=== PATIENT | male | born 1935 | race Caucasian/White ===

== ENCOUNTER 2019-03-15 16:09 | Inpatient (IN) | payer OTHER, MEDICARE ==
--- NOTE | 2019-03-15 16:20 | PDOC ---
History of Present Illness - General Chief Complaint: Respiratory Stated Complaint: COUGH Time Seen by Provider: 03/15/19 16:11 History Source: Patient Exam Limitations: No Limitations - History of Present Illness Initial Comments: 03/15/19 16:19 PCP: Cl Serrano HPI: 83yo M PMH HTN, BPH, pacemaker placement 01/30/19, presenting with cough and SOB for 2 weeks. Patient reports developing a cough 2 weeks ago, productive of green/ambrosio sputum. Endorses chills about a week ago. Reports that his cough / SOB has not changed for the entire duration. Reports difficulty talking 2/2 shortness of breath and "difficulty thinking." Denies nausea, vomiting, diarrhea , headache, chest pain. Denies any history of COPD or other pulmonary Hx, no CHF. Never had anything like this before, does not take home oxygen. No recent hospitalizations or immobilizations. was sick with similar respiratory symptoms before he fell ill and took a course of amoxicillin per [facility]. All: NKDA Meds: Per chart PMH: As above PSH: Pacemaker placement SHx: Never smoker Past History - Travel Traveled outside of the country in the last 30 days: No Close contact w/someone who was outside of country & ill: No - Past Medical History Allergies/Adverse Reactions: Allergies Allergy/AdvReac Type Severity Reaction Status Date / Time No Known Allergies Allergy Verified 03/15/19 16:10 Home Medications: Ambulatory Orders "Generic Antacid" 1 tab PO DAILY 03/15/19 Aspirin [Aspirin EC] 81 mg PO DAILY 03/15/19 Cholecalciferol (Vitamin D3) [Vitamin D3] 2,000 unit PO DAILY 03/15/19 Finasteride 5 mg PO DAILY 03/15/19 Hydrochlorothiazide [Hctz -] 12.5 mg PO DAILY 03/15/19 Losartan/Hydrochlorothiazide [Losartan-Hctz 100-25 mg Tab] 1 each PO DAILY 03/15 Metoprolol Succinate [Toprol Xl] 25 mg PO DAILY 03/15/19 Multivit-Min/FA/Lycopen/Lutein [Centrum Silver Tablet] 1 each PO DAILY 03/15/19 [place]-3 Fatty Acids/Fish Oil [Fish Oil 1,000 mg Capsule] 1 each PO DAILY Tamsulosin HCl [Flomax] 0.8 mg PO DAILY 01/19/20 Cardiac Disorders: Yes (PACEMAKER) COPD: No Disorders: Yes (PROSTATE) - Surgical History Cardiac Surgery: Yes (PACEMAKER) - Psycho Social/Smoking Cessation Hx Smoking History: Never smoked Have you smoked in the past 12 months: No Information on smoking cessation initiated: No Review of Systems - Review of Systems Able to Perform ROS?: Yes Is the patient limited Welsh proficient: Yes Constitutional: Yes: Chills (a week ago, resolved). No: Fever HEENTM: No: Nose Congestion, Throat Pain Respiratory: Yes: Cough, Shortness of Breath, SOB at Rest, Productive cough. No : Wheezing, Hemoptysis Cardiac (ROS): No: Chest Pain, Edema, Irregular Heart Rate, Syncope, Chest Tightness ABD/GI: No: Constipated, Diarrhea, Nausea, Vomiting : No: Burning, Dysuria, Frequency Musculoskeletal: No: Muscle Pain, Muscle Weakness Integumentary: No: Erythema, Rash, Sweating Neurological: No: Headache, Numbness, Tingling, Weakness Hematologic/Lymphatic: No: Anemia, Blood Clots, Easy Bleeding All Other Systems: Reviewed and Negative *Physical Exam - Vital Signs Last Vital Signs Temp Pulse Resp BP Pulse Ox 98.2 F 78 24 H 103/74 03/15/19 16:10 03/15/19 16:10 03/15/19 16:10 03/15/19 16:10 - Physical Exam 03/15/19 17:04 Vitals reviewed, AF, Tachypnic with O2 Sat in upper 80s on 5-8L NC GEN: Moderate distress, junky cough, comfortable. HEENT: NCAT, EOMI. No facial asymmetry. Moist mucous membranes. Normal voice. Trachea midline. CV: RRR, S1/S2, no murmurs / rubs / gallops appreciated. LUNG: Increased work of breathing with increased rate. +Wheezes anteriorly, rhonchi in RML. +Junky cough. Speaking short sentences. GI: Soft, NTND. EXTREMITIES: 2+ distal pulses. No LE edema. No obvious deformities of all extremities. SKIN: Warm, dry, no rashes appreciated, non-jaundiced. PSYCH: Normal mood and affect. Cooperative and appropriate. NEURO: CN grossly intact. Moving all extremities well. A&Ox3 ED Treatment Course - LABORATORY CBC & Chemistry Diagram: 03/15/19 16:51 03/15/19 16:51 Medical Decision Making - Medical Decision Making 03/15/19 16:56 83yo M PMH HTN, pacemaker placement 01/30/19, presenting with productive cough and SOB for 2 weeks. Concerning for poor O2 Sat, difficulty talking 2/2 tachypnea, rhonchi on lung exam. DDX: Most likely pneumonia vs bronchitis vs influenza. - CBC, CMP, Troponin - CXR, EKG - Duoneb - Outside window for antiviral tx 03/15/19 17:21 - Cr 2.9, unknown baseline, no reported kidney disease, 1L IVF ordered - Troponin pending Dispo: Admit Med/Surg [place] 03/15/19 17:28 - CXR with clear right mid-lung field pneumonia, suspect lower lobe involvement - Lactic acid and Blood Cultures ordered - EKG with Rate 88, Sinus rhythm with 1st degree AV block and premature atrial complexes, RBBB, Left anterior fascicular block, no ischmic changes Tx: Rocephin and Zithromax 03/15/19 17:53 - Troponin 0.06 - Influenza swab ordered 03/15/19 18:15 - Additional Duonebs 03/15/19 18:55 - Endorsed to Hospitalist EXPERIMENTAL MACHINIST Marilee and overnight Attending Dr. Jesus Discharge - Discharge Information Problems reviewed: Yes Clinical Impression/Diagnosis: Elevated serum creatinine Pneumonia Qualifiers: Pneumonia type: due to unspecified organism Laterality: right Lung location: unspecified part of lung Qualified Code(s): J18.9 - Pneumonia, unspecified organism Condition: Stable - Admission Yes - Follow up/Referral Referrals: Cl Serrano MD [Primary Care Provider] - - Patient Discharge Instructions - Post Discharge Activity
[2019-03-15] MEDS ORDERED: ALBUTEROL SO4 2.5/IPRATROPIUM 0.5 INH SOL 3 ML VIAL.NEB. NEB ONE ×4 (16:36→20:07)
--- NOTE | 2019-03-15 16:40 | PDOC ---
Attending Attestation - Resident Resident Name: Joey Nur - ED Attending Attestation I have performed the following: I have examined & evaluated the patient, The case was reviewed & discussed with the resident, I agree w/resident's findings & plan - HPI HPI: 03/15/19 16:37 83 y/o male with SOB and cough for several days. has been sick with cough. Denies fever or chills. No chest pain. Patient denies fall or trau,a Recent pacemaker placed in January. No swelling. No oxygen at home. - Physicial Exam PE: 03/15/19 16:38 VS O2 85% HEENT unremarkable Heart RRR w/o murmur Lungs diminished b/l, with coarse breath sounds on right Abdomen: soft nontender +BS EXTL no C/C/E Neuro Grossly intact no focal deficits noted - Medical Decision Making 03/15/19 16:39 Will obtain labs and CXR r/o pneumonia and cardiac event 03/15/19 17:29 CXR RLL pneumonia EKG rate 88 bifisicular block, no STEMI 03/15/19 18:03 Trop 0.06, AFF, IVF Will pace on Rocephin and Zithromax [facility] agrees to admission Patient agrees with plan Case discussed and reviewed with Dr. Nur resident, in agreement 03/15/19 18:04 Dx: pneumonia, ARF
[2019-03-15 17:07] LABS: HEMATOCRIT 42.4 % (35.4-49); HEMOGLOBIN 14.2 GM/dl (11.7-16.9); MCH 29.9 pg (25.7-33.7); MCHC 33.4 g/dl (32.0-35.9); MEAN CELL VOLUME 89.4 fl (80-96); MEAN PLT VOLUME 8.8 fl (7.5-11.1); PLATELET COUNT 315 K/MM3 (134-434); RBC 4.74 M/mm3 (4.00-5.60); RDW 15.2 % (11.9-15.9); WHITE BLOOD COUNT 24.6 K/mm3 (4.0-10.8)
[2019-03-15 17:15] LABS: ALBUMIN 2.3 g/dl (3.4-5.0); BILIRUBIN,TOTAL 1.2 mg/dl (0.2-1); CALCIUM 8.7 mg/dl (8.5-10); CREATININE 2.9 mg/dl (0.55-1.3); POTASSIUM 3.8 mmol/L (3.5-5.1); TOT PROT 5.4 g/dl (6.4-8.2)
[2019-03-15] MEDS ORDERED: CEFTRIAXONE 1 GM in DEXTROSE 5%-WATER - 100 ML IVPB ONE (17:31)
[2019-03-15] MEDS ORDERED: SODIUM CHLORIDE 0.9% 500 ML INFUS.BAG IV ONE ×2 (17:36→19:35)
[2019-03-15] MEDS ORDERED: AZITHROMYCIN 500 MG VIAL IVPB ONE (17:40)
[2019-03-15] MEDS ORDERED: cefTRIAXone SODIUM 1 GM VIAL ONE (17:40)
[2019-03-15] MEDS: AZITHROMYCIN IVPB 500 MG in DEXTROSE 5%-WATER - 250 ML IVPB ONE ×2 (17:50→18:30)
[2019-03-15 17:59] LABS: PLATELET ESTIMATE ADEQUATE
[2019-03-15] MEDS ORDERED: ONDANSETRON 4 MG/2 ML VIAL IVPUSH ONE (19:35)
[2019-03-15] MEDS ORDERED: ONDANSETRON 4 MG/2 ML VIAL ONE (19:38)
--- NOTE | 2019-03-15 20:31 | HP ---
CHIEF COMPLAINT: Cough, Weakness PCP: Dr. Serrano HISTORY OF PRESENT ILLNESS: This is a 83 y/o man with a PMHx of HTN, BPH, s/p PPM (01/2019). Who presents to the ED with worsening cough, SOB and weakness x several days. patient reports having a productive cough with grayish phelgm. He reports recent sick exposure- his has Bronchitis. Patient reports having recent pacemaker placed last month. Patient denies chills, WRIGHT, dizziness, CP, palpitations, AP, N /V/D, constipation, dysuria. ER course was notable for: (1) chest Xray image- patchy infiltrates RLL (2) WBC 24 with L- shift (3) Cr 2.9 (4) Troponin 0.06 Recent Travel: None PAST MEDICAL HISTORY: HTN BPH PAST SURGICAL HISTORY: AP s/p PPM (01/2019) Social History: Smoking: Former Alcohol: Denies Drugs: Denies Lives with spouse, retired Allergies No Known Allergies Allergy (Verified 03/15/19 16:10) HOME MEDICATIONS: Home Medications Medication Instructions Recorded "Generic Antacid" 1 tab PO DAILY 03/15/19 Aspirin [Aspirin EC] 81 mg PO DAILY 03/15/19 Cholecalciferol (Vitamin D3) 2,000 unit PO DAILY 03/15/19 [Vitamin D3] Finasteride 5 mg PO DAILY 03/15/19 Hydrochlorothiazide [Hctz -] 12.5 mg PO DAILY 03/15/19 Losartan/Hydrochlorothiazide 1 each PO DAILY 03/15/19 [Losartan-Hctz 100-25 mg Tab] Metoprolol Succinate [Toprol Xl] 25 mg PO DAILY 03/15/19 Multivit-Min/FA/Lycopen/Lutein 1 each PO DAILY 03/15/19 [Centrum Silver Tablet] [place]-3 Fatty Acids/Fish Oil [Fish 1 each PO DAILY 03/15/19 Oil 1,000 mg Capsule] Tamsulosin HCl [Flomax] 0.8 mg PO DAILY 03/15/19 REVIEW OF SYSTEMS CONSTITUTIONAL: fever, generalized weakness Absent: chills, diaphoresis, malaise, loss of appetite, weight change HEENT: Absent: rhinorrhea, nasal congestion, throat pain, throat swelling, difficulty swallowing, mouth swelling, ear pain, eye pain, visual changes CARDIOVASCULAR: Absent: chest pain, syncope, palpitations, irregular heart rate, lightheadedness , peripheral edema RESPIRATORY: cough, shortness of breath Absent: dyspnea with exertion, orthopnea, wheezing, stridor, hemoptysis GASTROINTESTINAL: Absent: abdominal pain, abdominal distension, nausea, vomiting, diarrhea, constipation, melena, hematochezia GENITOURINARY: Absent: dysuria, frequency, urgency, hesitancy, hematuria, flank pain, genital pain MUSCULOSKELETAL: Absent: myalgia, arthralgia, joint swelling, back pain, neck pain SKIN: Absent: rash, itching, pallor HEMATOLOGIC/IMMUNOLOGIC: Absent: easy bleeding, easy bruising, lymphadenopathy, frequent infections ENDOCRINE: Absent: unexplained weight gain, unexplained weight loss, heat intolerance, cold intolerance NEUROLOGIC: Absent: headache, focal weakness or paresthesias, dizziness, unsteady gait, seizure, mental status changes, bladder or bowel incontinence PSYCHIATRIC: Absent: anxiety, depression, suicidal or homicidal ideation, hallucinations. PHYSICAL EXAMINATION Vital Signs - 24 hr 03/15/19 03/15/19 03/15/19 16:10 16:15 17:53 Temperature 98.2 F 97.9 F Pulse Rate 78 98 H Pulse Rate [ 92 H Left Apical] Respiratory 24 H 24 H Rate Blood Pressure 103/74 Blood Pressure 127/89 [Left Arm] O2 Sat by Pulse 88 L 92 L 94 L Oximetry (%) 03/15/19 03/15/19 19:06 19:40 Temperature 98 F 98 F Pulse Rate Pulse Rate [ 91 H 77 Left Apical] Respiratory 21 H 22 H Rate Blood Pressure Blood Pressure 101/88 119/78 [Left Arm] O2 Sat by Pulse 92 L 93 L Oximetry (%) GENERAL: Awake, alert, and fully oriented, in no acute distress. HEAD: Normal with no signs of trauma. EYES: Pupils equal, round and reactive to light, extraocular movements intact, sclera anicteric, conjunctiva clear. No lid lag. EARS, NOSE, THROAT: Ears normal, nares patent, oropharynx clear without exudates. Moist mucous membranes. NECK: Normal range of motion, supple without lymphadenopathy, JVD, or masses. LUNGS: Breath sounds diminished in right base. Scattered rhonchi and wheeze. No accessory muscle use. HEART: Regular rate and rhythm, normal S1 and S2 without murmur, rub or gallop. ABDOMEN: Obese, soft, nontender, not distended, normoactive bowel sounds, no guarding, no rebound, no masses. No hepatomegaly or splenomegaly. MUSCULOSKELETAL: Normal range of motion at all joints. No bony deformities or tenderness. No CVA tenderness. UPPER EXTREMITIES: 2+ pulses, warm, well-perfused. No cyanosis. No clubbing. No peripheral edema. LOWER EXTREMITIES: 2+ pulses, warm, well-perfused. No calf tenderness. No peripheral edema. NEUROLOGICAL: Cranial nerves II-XII intact. Normal speech. Gait not observed. PSYCHIATRIC: Cooperative. Good eye contact. Appropriate mood and affect. SKIN: Warm, dry, normal turgor, no rashes or lesions noted, normal capillary refill. Laboratory Results - last 24 hr 03/15/19 03/15/19 03/15/19 16:51 16:51 17:04 WBC 24.6 H RBC 4.74 Hgb 14.2 Hct 42.4 MCV 89.4 MCH 29.9 MCHC 33.4 RDW 15.2 Plt Count 315 MPV 8.8 Absolute Neuts (auto) 22.2 Neutrophils % No Result Required. Neutrophils % (Manual) 90.0 H Lymphocytes % No Result Required. Lymphocytes % (Manual) 4.0 L Monocytes % (Manual) 5 Eosinophils % (Manual) 1.0 Platelet Estimate Adequate Sodium 134 L Potassium 3.8 Chloride 100 Carbon Dioxide 21 Anion Gap 13 BUN 74.0 H Creatinine 2.9 H Est GFR (CKD-EPI)AfAm 22.01 Est GFR (CKD-EPI)NonAf 18.99 Random Glucose 113 H Lactic Acid Calcium 8.7 Total Bilirubin 1.2 H AST 35 ALT 27 Alkaline Phosphatase 84 Troponin I 0.06 H Total Protein 5.4 L Albumin 2.3 L Influenza A (Rapid) Influenza B (Rapid) 03/15/19 03/15/19 17:47 17:59 WBC RBC Hgb Hct MCV MCH MCHC RDW Plt Count MPV Absolute Neuts (auto) Neutrophils % Neutrophils % (Manual) Lymphocytes % Lymphocytes % (Manual) Monocytes % (Manual) Eosinophils % (Manual) Platelet Estimate Sodium Potassium Chloride Carbon Dioxide Anion Gap BUN Creatinine Est GFR (CKD-EPI)AfAm Est GFR (CKD-EPI)NonAf Random Glucose Lactic Acid 1.6 Calcium Total Bilirubin AST ALT Alkaline Phosphatase Troponin I Total Protein Albumin Influenza A (Rapid) Negative Influenza B (Rapid) Negative ASSESSMENT/PLAN: This is a 83 y/o man with a PMHx of HTN, CAD s/p PPM, BPH. Admitted to Telemetry for Elevated Troponin, Pneumonia, Hypoxia, VARSHA for further evaluation of their emergent condition. See Problem List FEN PO fluids as tolerated Replete lytes prn Low Na Diet DVT ppx OOB SCDs Heparin SQ Dispo: Requires Inpatient Care Family Medical History Family History: Unable to Obtain Problem List - Problem (1) Pneumonia Assessment/Plan: Will treat for CAP vs Eosinophilic [id number] Blood Cultures-pending Urine Legionella-pending Chest Xray image- RLL- patchy infiltrates WBC 24,000 Ceftriaxone, Azithromycin given in ED will continue Solumederol Appreciate Pulm consult O2 Duonebs Consider ID consult if condition worsens Monitor CBC, BMP Monitor vitals Code(s): J18.9 - PNEUMONIA, UNSPECIFIED ORGANISM Qualifiers: Pneumonia type: due to unspecified organism Laterality: right Lung location: unspecified part of lung Qualified Code(s): J18.9 - Pneumonia, unspecified organism (2) Hypoxia Assessment/Plan: see above Code(s): R09.02 - HYPOXEMIA (3) VARSHA (acute kidney injury) Assessment/Plan: Monitor BMP Hold ARB, Thiazides Consider Nephrology consult Code(s): N17.9 - ACUTE KIDNEY FAILURE, UNSPECIFIED (4) Elevated troponin Assessment/Plan: Likely secondary to Sepsis vs Pneumonia Serial Enzymes Continue cardiac monitoring EKG-reviewed Consider Cardiology consult Code(s): R79.89 - OTHER SPECIFIED ABNORMAL FINDINGS OF BLOOD CHEMISTRY (5) BPH (benign prostatic hyperplasia) Assessment/Plan: stable Continue Flomax Code(s): N40.0 - BENIGN PROSTATIC HYPERPLASIA WITHOUT LOWER URINRY TRACT SYMP (6) HTN (hypertension) Assessment/Plan: Monitor BP Continue BB with parameters Monitor renal function Code(s): I10 - ESSENTIAL (PRIMARY) HYPERTENSION (7) Status post biventricular pacemaker Code(s): Z95.0 - PRESENCE OF CARDIAC PACEMAKER Visit type - Emergency Visit Emergency Visit: Yes ED Registration Date: 03/15/19 Care time: The patient presented to the Emergency Department on the above date and was hospitalized for further evaluation of their emergent condition. - New Patient This patient is new to me today: Yes Date on this admission: 03/15/19 - Critical Care Critical Care patient: No
[2019-03-15] MEDS: ALBUTEROL SO4 2.5/IPRATROPIUM 0.5 INH SOL 3 ML VIAL.NEB. NEB SCH (20:33)
[2019-03-16] MEDS ORDERED: methylPREDNISolone NA SUCC 40 MG/1 ML VIAL IVPUSH ONE (05:42)
[2019-03-16 08:52] LABS: BASO % 0.5 % (0-2.0); CALCIUM 8.4 mg/dl (8.5-10); CREATININE 3.2 mg/dl (0.55-1.3); EOS % 0.1 % (0-4.5); HEMOGLOBIN 13.5 GM/dl (11.7-16.9); LYMPH % 2.8 % (8-40); MCH 30.1 pg (25.7-33.7); MCHC 33.7 g/dl (32.0-35.9); MEAN CELL VOLUME 89.3 fl (80-96); MEAN PLT VOLUME 8.8 fl (7.5-11.1); MONO % 2.3 % (3.8-10.2); NEUT % 94.3 % (42.8-82.8); PLATELET COUNT 311 K/MM3 (134-434); POTASSIUM 3.6 mmol/L (3.5-5.1); RBC 4.49 M/mm3 (4.00-5.60); WHITE BLOOD COUNT 25.9 K/mm3 (4.0-10.8)
[2019-03-16] MEDS: TAMSULOSIN HCL 0.4 MG CAP PO SCH (09:07)
[2019-03-16] MEDS: FINASTERIDE 5 MG TABLET (FP) PO SCH (09:07)
[2019-03-16] MEDS: metoPROLOL SUCCINATE 25 MG TAB.SR.24H (FP) PO SCH (09:07)
[2019-03-16] MEDS: ASPIRIN COATED 81 MG TABLET.EC PO SCH (09:07)
[2019-03-16] MEDS: MULTIVITAMINS THER W-MINERALS COMBO TABLET (FP) PO SCH (09:08)
[2019-03-16] MEDS: OMEGA-3 ACID ETHYL ESTERS (FATTY-ACIDS) 1 GM CAPSULE (FP) PO SCH (09:11)
[2019-03-16] MEDS ORDERED: CEFTRIAXONE 1 GM in DEXTROSE 5%-WATER - 50 ML IVPB SCH (10:00)
[2019-03-16] MEDS ORDERED: CEFTRIAXONE 1 G/50 ML PREMIX 50 ML IVPB SCH (10:00)
[2019-03-16] MEDS: ALBUTEROL SO4 2.5/IPRATROPIUM 0.5 INH SOL 3 ML VIAL.NEB. NEB SCH ×4 (10:00→20:36)
[2019-03-16] MEDS ORDERED: AZITHROMYCIN IVPB 500 MG/250 ML BAG IVPB SCH (10:00)
--- NOTE | 2019-03-16 10:06 | EKG ---
Test Reason : Blood Pressure : / mmHG Vent. Rate : 084 BPM Atrial Rate : 084 BPM P-R Int : 274 ms QRS Dur : 172 ms QT Int : 412 ms P-R-T Axes : 040 -43 027 degrees QTc Int : 486 ms SINUS RHYTHM WITH 1ST DEGREE A-V BLOCK WITH FREQUENT PREMATURE VENTRICULAR COMPLEXES LEFT AXIS DEVIATION RIGHT BUNDLE BRANCH BLOCK ABNORMAL ECG WHEN COMPARED WITH ECG OF 15-MAR-2019 17:29, PREMATURE VENTRICULAR COMPLEXES ARE NOW PRESENT PREMATURE ATRIAL COMPLEXES ARE NO LONGER PRESENT Confirmed by ALEKSANDRA MENENDEZ MD ([id number]) on 03/16/2019 10:06:28 AM Referred By: KIMBER MCCURDY Confirmed By:ALEKSANDRA MENENDEZ MD
--- NOTE | 2019-03-16 10:06 | EKG ---
Test Reason : Blood Pressure : / mmHG Vent. Rate : 088 BPM Atrial Rate : 088 BPM P-R Int : 242 ms QRS Dur : 168 ms QT Int : 416 ms P-R-T Axes : 030 -50 007 degrees QTc Int : 503 ms SINUS RHYTHM WITH 1ST DEGREE A-V BLOCK WITH PREMATURE ATRIAL COMPLEXES RIGHT BUNDLE BRANCH BLOCK LEFT ANTERIOR FASCICULAR BLOCK BIFASCICULAR BLOCK ABNORMAL ECG NO PREVIOUS ECGS AVAILABLE Confirmed by SHON HAYDEN, ALEKSANDRA ([id number]) on 03/16/2019 10:06:33 AM Referred By: VARUN HINDS Confirmed By:ALEKSANDRA MENENDEZ MD
[2019-03-16 12:41] LABS: EPI CELLS 5.7 /HPF (0-5/HPF); HYALINE CASTS 81 /lpf (0-8); URINE APPEARANCE CLOUDY; URINE BILIRUBIN 1+ (NEGATIVE); URINE COLOR DK YELLOW; URINE GLUCOSE (UA) NEGATIVE (NEGATIVE); URINE KETONE TRACE (NEGATIVE); URINE LEUK ESTERASE NEGATIVE (NEGATIVE); URINE NITRITE POSITIVE (NEGATIVE); URINE PROTEIN 1+ (NEGATIVE); URINE WBC 6 /hpf (0-5)
[2019-03-16 13:11] LABS: URINE RBC 11.8 /hpf (0-4)
[2019-03-16] MEDS ORDERED: VANCOMYCIN 1 GRAM (PRE-DOCKED) 1,000 MG/250 ML BAG IVPB ONE (17:14)
--- NOTE | 2019-03-16 17:28 | CONSULT ---
Consult Consult Specialty:: Nephrology Reason for Consultation:: VARSHA - History of Present Illness Chief Complaint: cough History of Present Illness: Pt is an 83 year old male with pmhx of htn, bph, and PPM who presents with cough. He has been taking robitussin for about a week with no improvement. He complains of weakness and decreased PO intake. He says that his has bronchitis as well. He was found to have elevated creatinine and I was called to evaluate him. He denies history of CKD. He denies dysuria or hematuria. He uses nsaids occasionly. He was hypotensive on admission. - History Source History Provided By: Patient - Past Medical History Cardio/Vascular: Yes: HTN - Past Surgical History Past Surgical History: Yes: Permanent Pacemaker - Smoking History Smoking history: Never smoked Have you smoked in the past 12 months: No Home Medications - Allergies Allergies/Adverse Reactions: Allergies Allergy/AdvReac Type Severity Reaction Status Date / Time No Known Allergies Allergy Verified 03/15/19 16:10 - Home Medications Home Medications: Ambulatory Orders "Generic Antacid" 1 tab PO DAILY 03/15/19 Aspirin [Aspirin EC] 81 mg PO DAILY 03/15/19 Cholecalciferol (Vitamin D3) [Vitamin D3] 2,000 unit PO DAILY 03/15/19 Finasteride 5 mg PO DAILY 03/15/19 Hydrochlorothiazide [Hctz -] 12.5 mg PO DAILY 03/15/19 Losartan/Hydrochlorothiazide [Losartan-Hctz 100-25 mg Tab] 1 each PO DAILY 03/15 Metoprolol Succinate [Toprol Xl] 25 mg PO DAILY 03/15/19 Multivit-Min/FA/Lycopen/Lutein [Centrum Silver Tablet] 1 each PO DAILY 03/15/19 [place]-3 Fatty Acids/Fish Oil [Fish Oil 1,000 mg Capsule] 1 each PO DAILY Tamsulosin HCl [Flomax] 0.8 mg PO DAILY 03/15/19 Family Medical History Family History: Denies Review of Systems - Review of Systems Constitutional: reports: Weakness Eyes: reports: No Symptoms HENT: reports: No Symptoms Neck: reports: No Symptoms Cardiovascular: denies: Chest Pain, Edema, Palpitations Respiratory: reports: Cough, SOB, SOB on Exertion Gastrointestinal: reports: No Symptoms Musculoskeletal: reports: No Symptoms Integumentary: reports: No Symptoms Neurological: reports: No Symptoms Endocrine: reports: No Symptoms Hematology/Lymphatic: reports: No Symptoms Psychiatric: reports: No Symptoms Physical Exam Vital Signs: Vital Signs Temperature 97.9 F 03/16/19 00:56 Pulse Rate 79 03/16/19 14:18 Respiratory Rate 22 H 03/16/19 14:18 Blood Pressure 109/61 03/16/19 14:18 O2 Sat by Pulse Oximetry (%) 90 L 03/16/19 14:18 Constitutional: Yes: Calm Eyes: Yes: Conjunctiva Clear HENT: Yes: Atraumatic Neck: Yes: Supple Cardiovascular: Yes: S1, S2 Respiratory: Yes: On Nasal O2, Rales, Rhonchi, SOB Gastrointestinal: Yes: Soft Renal/: Yes: WNL Musculoskeletal: Yes: WNL Edema: No Integumentary: Yes: WNL Neurological: Yes: Oriented Psychiatric: Yes: Oriented Labs: CBC, BMP 03/16/19 07:15 03/16/19 07:15 Laboratory Tests 03/15/19 03/15/19 03/16/19 16:51 16:51 05:00 WBC 24.6 H Sodium Potassium BUN Creatinine 2.9 H Urine Protein 1+ H Urine Blood Negative Urine Bilirubin 1+ H 03/16/19 03/16/19 07:15 07:15 WBC 25.9 H Sodium 134 L Potassium 3.6 BUN 81.0 H Creatinine 3.2 H Urine Protein Urine Blood Urine Bilirubin Imaging - Results Chest X-ray: Report Reviewed Problem List - Problems (1) VARSHA (acute kidney injury) Code(s): N17.9 - ACUTE KIDNEY FAILURE, UNSPECIFIED (2) BPH (benign prostatic hyperplasia) Code(s): N40.0 - BENIGN PROSTATIC HYPERPLASIA WITHOUT LOWER URINRY TRACT SYMP (3) Elevated serum creatinine Code(s): R79.89 - OTHER SPECIFIED ABNORMAL FINDINGS OF BLOOD CHEMISTRY Assessment/Plan Current Medications Generic Name Dose Route Start Last Admin Trade Name Freq PRN Reason Stop Dose Admin Albuterol/Ipratropium 1 amp 03/15/19 20:00 03/16/19 17:20 Duoneb - NEB 1 amp RQID MANUEL Administration Aspirin 81 mg 03/16/19 10:00 03/16/19 09:07 Ecotrin - PO 81 mg DAILY MANUEL Administration Finasteride 5 mg 03/16/19 10:00 03/16/19 09:07 Proscar - PO 5 mg DAILY MANUEL Administration Piperacillin Sod/Tazobactam 50 mls @ 100 mls/hr 03/16/19 18:00 Sod 2.25 gm/ Dextrose IVPB Q8H-IV MANUEL Protocol Vancomycin HCl 1,000 mg in 250 mls @ 166.667 mls/hr 03/16/19 17:14 Vancomycin (Pre-Docked) IVPB 03/16/19 18:43 ONCE ONE Protocol Methylprednisolone Sodium Succinate 40 mg 03/17/19 10:00 Solu-Medrol - IVPUSH 03/22/19 09:59 DAILY MANUEL Metoprolol Succinate 25 mg 03/16/19 10:00 03/16/19 09:07 Toprol Xl - PO 25 mg DAILY MANUEL Administration Multivitamins/Minerals 1 each 03/16/19 10:00 03/16/19 09:08 Theragran-M PO 1 each DAILY MANUEL Administration Hotbw-6-Qeku Ethyl Esters 1 gm 03/16/19 10:00 03/16/19 09:11 Lovaza - PO 1 gm DAILY MANUEL Administration Tamsulosin HCl 0.8 mg 03/16/19 08:30 03/16/19 09:07 Flomax - PO 0.8 mg DAILY@0830 MANUEL Administration Impression 1. VARSHA 2. PNA 3. hx HTN 4. BPH 5. hx PPM Plan - hold losartan - hold thiazide - will start saline at 50 cc - follow renal ultrasound - called office of Dr Serrano (PMD) in order to get baseline labs - renal dose abx and meds - check urine lytes, urea and scrap baller
[2019-03-16] MEDS ORDERED: SODIUM CHLORIDE 1,000 ML IV SCH (17:30)
[2019-03-16] MEDS ORDERED: PIPERACILLIN/TAZOBACTAM 2.25 GM VIAL IVPB ONE (17:59)
[2019-03-16] MEDS ORDERED: DEXTROSE 5%-WATER - 50 ML IVPB ONE (18:00)
[2019-03-16] MEDS: PIPERACILLIN/TAZOB 2.25 GM 2.25 GM in DEXTROSE 5%-WATER - 50 ML IVPB SCH (19:00)
--- NOTE | 2019-03-16 19:14 | PN ---
Physical Exam: 83 M h/o HTN, BPH, ?heart block s/p PPM (01/2019), morbid obesity, presents with worsening cough, SOB and malaise for several days. Patient endorses "getting over the flu" recently, endorses taking some ?NSAIDs for pain. Admitted for RML/RLL PNA on Zosyn was also given dose of Vanco to empirically cover FLU PNA. Patient stable, speaking in full sentences, sitting upright OOB to chair on supplemental oxygen. PE GA speaking in full sentences, morbidly obese, elderly male, sitting up in chair HEENT NC/AT, EOMI, no stridor, neck supple, no nasal flaring Chest coarse b/l BS, decreased BS R lung, crackles w/ faint wheezing+ CVS S1, S2+, PVC beats+ Abd obese, Soft, NT, no guarding Ext trace LE edema, moves all 4 extremities. Vital Signs - 24 hr 03/15/19 03/15/19 03/15/19 19:40 20:45 21:00 Temperature 98 F 97.8 F 98 F Pulse Rate 78 Pulse Rate [ 77 82 Left Apical] Respiratory 22 H 24 H 20 Rate Blood Pressure 127/62 Blood Pressure 119/78 105/59 L [Left Arm] O2 Sat by Pulse 93 L 93 L Oximetry (%) 03/16/19 03/16/19 03/16/19 00:56 07:55 14:18 Temperature 97.9 F Pulse Rate 76 79 Pulse Rate [ Left Apical] Respiratory 17 22 H Rate Blood Pressure 108/36 L 109/61 Blood Pressure [Left Arm] O2 Sat by Pulse 93 L 94 L 90 L Oximetry (%) Microbiology 03/15/19 17:47 Blood - Peripheral Venous Blood Culture - Preliminary NO GROWTH OBTAINED AFTER 24 HOURS, INCUBATION TO CONTINUE FOR 4 DAYS. 03/15/19 17:47 Blood - Peripheral Venous Blood Culture - Preliminary NO GROWTH OBTAINED AFTER 24 HOURS, INCUBATION TO CONTINUE FOR 4 DAYS. 03/16/19 05:00 Urine For Antigen Detection Legionella Antigen - Final 03/16/19 05:00 Urine For Antigen Detection Streptococcus pneumoniae Antigen (M - Final Laboratory Results - last 24 hr 03/15/19 03/15/19 03/15/19 17:47 17:59 20:35 WBC RBC Hgb Hct MCV MCH MCHC RDW Plt Count MPV Absolute Neuts (auto) Neutrophils % Lymphocytes % Monocytes % Eosinophils % Basophils % Sodium Potassium Chloride Carbon Dioxide Anion Gap BUN Creatinine Est GFR (CKD-EPI)AfAm Est GFR (CKD-EPI)NonAf Random Glucose Lactic Acid 1.6 Calcium Troponin I 0.05 TSH Urine Color Urine Appearance Urine pH Ur Specific [place] Urine Protein Urine Glucose (UA) Urine Ketones Urine Blood Urine Nitrite Urine Bilirubin Urine Urobilinogen Ur Leukocyte Esterase Urine WBC (Auto) Urine RBC (Auto) Urine Casts (Auto) U Epithel Cells (Auto) Urine Bacteria (Auto) Influenza A (Rapid) Negative Influenza B (Rapid) Negative RSV Rapid 03/16/19 03/16/19 03/16/19 05:00 05:00 05:00 WBC RBC Hgb Hct MCV MCH MCHC RDW Plt Count MPV Absolute Neuts (auto) Neutrophils % Lymphocytes % Monocytes % Eosinophils % Basophils % Sodium Potassium Chloride Carbon Dioxide Anion Gap BUN Creatinine Est GFR (CKD-EPI)AfAm Est GFR (CKD-EPI)NonAf Random Glucose Lactic Acid Calcium Troponin I 0.04 TSH Urine Color Cancelled Dk yellow Urine Appearance Cancelled Cloudy Urine pH Cancelled 5.0 Ur Specific [place] 1.023 Urine Protein Cancelled 1+ H Urine Glucose (UA) Cancelled Negative Urine Ketones Cancelled Trace H Urine Blood Cancelled Negative Urine Nitrite Cancelled Positive H Urine Bilirubin Cancelled 1+ H Urine Urobilinogen Cancelled 1.0 Ur Leukocyte Esterase Cancelled Negative Urine WBC (Auto) 6 Urine RBC (Auto) 11.8 Urine Casts (Auto) 81 U Epithel Cells (Auto) 5.7 Urine Bacteria (Auto) 15.0 Influenza A (Rapid) Influenza B (Rapid) RSV Rapid 03/16/19 03/16/19 03/16/19 06:45 07:15 07:15 WBC 25.9 H RBC 4.49 Hgb 13.5 Hct 40.0 MCV 89.3 MCH 30.1 MCHC 33.7 RDW 15.0 Plt Count 311 MPV 8.8 Absolute Neuts (auto) 24.5 Neutrophils % 94.3 H Lymphocytes % 2.8 L Monocytes % 2.3 L Eosinophils % 0.1 Basophils % 0.5 Sodium 134 L Potassium 3.6 Chloride 100 Carbon Dioxide 21 Anion Gap 13 BUN 81.0 H Creatinine 3.2 H Est GFR (CKD-EPI)AfAm 19.54 Est GFR (CKD-EPI)NonAf 16.86 Random Glucose 133 H Lactic Acid Calcium 8.4 L Troponin I TSH 0.55 Urine Color Urine Appearance Urine pH Ur Specific [place] Urine Protein Urine Glucose (UA) Urine Ketones Urine Blood Urine Nitrite Urine Bilirubin Urine Urobilinogen Ur Leukocyte Esterase Urine WBC (Auto) Urine RBC (Auto) Urine Casts (Auto) U Epithel Cells (Auto) Urine Bacteria (Auto) Influenza A (Rapid) Influenza B (Rapid) RSV Rapid 03/16/19 03/16/19 03/16/19 07:15 16:00 16:00 WBC RBC Hgb Hct MCV MCH MCHC RDW Plt Count MPV Absolute Neuts (auto) Neutrophils % Lymphocytes % Monocytes % Eosinophils % Basophils % Sodium Potassium Chloride Carbon Dioxide Anion Gap BUN Creatinine Est GFR (CKD-EPI)AfAm Est GFR (CKD-EPI)NonAf Random Glucose Lactic Acid Calcium Troponin I 0.04 TSH Urine Color Urine Appearance Urine pH Ur Specific [place] Urine Protein Urine Glucose (UA) Urine Ketones Urine Blood Urine Nitrite Urine Bilirubin Urine Urobilinogen Ur Leukocyte Esterase Urine WBC (Auto) Urine RBC (Auto) Urine Casts (Auto) U Epithel Cells (Auto) Urine Bacteria (Auto) Influenza A (Rapid) Negative Influenza B (Rapid) Negative RSV Rapid Negative 03/16/19 23:30 WBC RBC Hgb Hct MCV MCH MCHC RDW Plt Count MPV Absolute Neuts (auto) Neutrophils % Lymphocytes % Monocytes % Eosinophils % Basophils % Sodium Potassium Chloride Carbon Dioxide Anion Gap BUN Creatinine Est GFR (CKD-EPI)AfAm Est GFR (CKD-EPI)NonAf Random Glucose Lactic Acid Calcium Troponin I 0.04 TSH Urine Color Urine Appearance Urine pH Ur Specific [place] Urine Protein Urine Glucose (UA) Urine Ketones Urine Blood Urine Nitrite Urine Bilirubin Urine Urobilinogen Ur Leukocyte Esterase Urine WBC (Auto) Urine RBC (Auto) Urine Casts (Auto) U Epithel Cells (Auto) Urine Bacteria (Auto) Influenza A (Rapid) Influenza B (Rapid) RSV Rapid Current Medications Generic Name Dose Route Start Last Admin Trade Name Freq PRN Reason Stop Dose Admin Albuterol/Ipratropium 1 amp 03/15/19 20:00 03/16/19 17:20 Duoneb - NEB 1 amp RQID MANUEL Administration Aspirin 81 mg 03/16/19 10:00 03/16/19 09:07 Ecotrin - PO 81 mg DAILY MANUEL Administration Finasteride 5 mg 03/16/19 10:00 03/16/19 09:07 Proscar - PO 5 mg DAILY MANUEL Administration Piperacillin Sod/Tazobactam 50 mls @ 100 mls/hr 03/16/19 18:00 03/16/19 19:00 Sod 2.25 gm/ Dextrose IVPB 100 mls/hr Q8H-IV MANUEL Administration Protocol Sodium Chloride 1,000 mls @ 42 mls/hr 03/16/19 17:30 03/16/19 18:59 Normal Saline - IV 42 mls/hr ASDIR MANUEL Administration Methylprednisolone Sodium Succinate 40 mg 03/17/19 10:00 Solu-Medrol - IVPUSH 03/22/19 09:59 DAILY MANUEL Metoprolol Succinate 25 mg 03/16/19 10:00 03/16/19 09:07 Toprol Xl - PO 25 mg DAILY MANUEL Administration Multivitamins/Minerals 1 each 03/16/19 10:00 03/16/19 09:08 Theragran-M PO 1 each DAILY MANUEL Administration Ctwwx-3-Culh Ethyl Esters 1 gm 03/16/19 10:00 03/16/19 09:11 Lovaza - PO 1 gm DAILY MANUEL Administration Tamsulosin HCl 0.8 mg 03/16/19 08:30 03/16/19 09:07 Flomax - PO 0.8 mg DAILY@0830 MANUEL Administration A/P: 83 M morbidly obese, HTN, BPH, ?heart block requiring PPM (01/2019), admitted for RML/RLL PNA. CAP cont. supplemental oxygen to get O2 >90% Duonebs around the clock, IV steroids, send legionella/strep/flu/rsv/blood cx Ceftriaxone/Azithromycin for CAP given, increase coverage to Zosyn to cover for atypicals/aspiration PNA, ID evaluation Monitor breathing closely, BiPAP PRN for dyspnea Pulmonary evaluation HTN hold BP meds in view of sepsis VARSHA ?due to NSAID use, appears acute in nature due to normal kidneys on US, renal/ bladder not showing signs of obstruction, monitor urine output Renal evaluation, send VARSHA workup, strict avoidance of CARLOS/ARBs/thiazides and nephrotoxins BPH Renal/Bladder US non-diagnostic due to 50cc of urine in bladder cont. Flomax/Proscar, monitor urine output closely Recent PPM PVCs on telemetry, denies CP, trops negative Order Echo Cardiology evaluation for PVCs DVT ppx: Heparin SC Gentle IV hydration, daily chem, Na diet Visit type - Emergency Visit Emergency Visit: Yes ED Registration Date: 03/15/19 Care time: The patient presented to the Emergency Department on the above date and was hospitalized for further evaluation of their emergent condition. - New Patient This patient is new to me today: Yes Date on this admission: 03/16/19 - Critical Care Critical Care patient: No - Discharge Referral Referred to [facility] Med P.C.: No
[2019-03-16] MEDS ORDERED: ALBUTEROL SO4 2.5/IPRATROPIUM 0.5 INH SOL 3 ML VIAL.NEB. NEB PRN (19:15)
--- NOTE | 2019-03-16 20:30 | PN ---
Progress Note (short form) - Note Progress Note: ID CONSULT DICTATED PNEUMONIA R/O SEPSIS SECONDARY TO PNEUMONIA AWAIT C/S EMPIRIC ZOSYN + STAT DOSE VANCOMYCIN
--- NOTE | 2019-03-16 22:25 | CONS ---
INFECTIOUS DISEASE CONSULTATION DATE OF CONSULTATION: DATE OF DICTATION: 03/16/2019 The patient is an 83-year-old male who is evaluated for pneumonia. He was admitted to the hospital on March 15, 2019, with a 2-week history of worsening shortness of breath, cough, and green sputum production. According to the notes, his had been ill with a respiratory tract illness. He was evaluated in the emergency room where he was noted to have a markedly elevated white blood cell count of 24,000. Chest x-ray showed right-sided infiltrate. He was empirically treated with Zithromax and ceftriaxone. Patient reports cough productive of greenish sputum. He denies any chest pain. He is short of breath at rest and is noted to have difficulty completing sentences with his shortness of breath. He reports receiving influenza vaccine, however, not receiving the pneumococcal vaccine. The patient is a former smoker. No recent hospitalizations. PAST MEDICAL HISTORY: Positive for hypertension and BPH. PAST SURGICAL HISTORY: Status post permanent pacemaker done on January 30, 2019; history of appendectomy. ALLERGIES: No known allergies. MEDICATIONS: Aspirin, finasteride, hydrochlorothiazide, losartan, Toprol, Flomax. 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 He is a former smoker, stopped many years ago. Lives at home with his significant other. Positive ill contact. SYSTEMS REVIEW: Neurologic: No loss of consciousness, seizure activity, or focal weakness. Cardiac: Negative chest pain or palpitations. Respiratory: As per HPI. Gastrointestinal: Negative vomiting or diarrhea. Genitourinary: Positive for azotemia. LABORATORY DATA: White count 25.9, hematocrit 40.0, platelet count 311. Creatinine 3.2. Urinalysis: Six white cells. Influenza swab negative. Legionella antigen negative. Chest x-ray shows increased markings, right mid and lower lung field. PHYSICAL EXAMINATION: General: He is awake. He is out of bed to chair. He is slightly short of breath at rest, unable to complete sentences without shortness of breath. Vital Signs: Temperature 97.9; blood pressure 108/36; pulse 76, regular; respirations 17 per minute. HEENT: Sclera anicteric. Heart: Sounds S1, S2. Lungs: Rales at the right lower and mid lung field as well as the left base. Abdomen: Soft. No tenderness elicited. No mass, rebound, or rigidity. Extremities: Edema 1+. Skin: There is a healed surgical wound present in the left subclavian area corresponding to his pacemaker. The wound does not appear infected. IMPRESSION: 1. Community-acquired versus atypical, right-sided pneumonia. 2. Rule out sepsis secondary to pneumonia. 3. Status post recent permanent pacemaker placement. 4. Azotemia. 5. Marked leukocytosis. Await culture results. Empiric antibiotic coverage pending cultures with Zosyn and stat dose vancomycin adjusted for renal insufficiency. Further recommendations pending cultures. Will follow. Thank you for the kind referral. RON SANCHES M.D. JOSE [id number]
[2019-03-17] MEDS: PIPERACILLIN/TAZOB 2.25 GM 2.25 GM in DEXTROSE 5%-WATER - 50 ML IVPB SCH ×4 (02:00→19:53)
[2019-03-17] MEDS ORDERED: PIPERACILLIN/TAZOBACTAM 2.25 GM VIAL IVPB ONE ×3 (03:29→19:45)
[2019-03-17] MEDS ORDERED: DEXTROSE 5%-WATER - 50 ML IVPB ONE ×3 (03:29→19:45)
[2019-03-17] MEDS: ALBUTEROL SO4 2.5/IPRATROPIUM 0.5 INH SOL 3 ML VIAL.NEB. NEB SCH ×3 (07:50→20:50)
[2019-03-17 07:51] LABS: HEMATOCRIT 42.3 % (35.4-49); HEMOGLOBIN 14.1 GM/dl (11.7-16.9); MCH 29.2 pg (25.7-33.7); MCHC 33.2 g/dl (32.0-35.9); MEAN CELL VOLUME 87.9 fl (80-96); MEAN PLT VOLUME 8.8 fl (7.5-11.1); PLATELET COUNT 377 K/MM3 (134-434); RBC 4.82 M/mm3 (4.00-5.60); RDW 14.8 % (11.9-15.9)
[2019-03-17 07:57] LABS: ALBUMIN 2.3 g/dl (3.4-5.0); BILIRUBIN,TOTAL 0.5 mg/dl (0.2-1); CREATININE 3.4 mg/dl (0.55-1.3); POTASSIUM 3.7 mmol/L (3.5-5.1); TOT PROT 5.6 g/dl (6.4-8.2)
[2019-03-17 08:18] LABS: WHITE BLOOD COUNT 31.7 K/mm3 (4.0-10.8)
[2019-03-17] MEDS: TAMSULOSIN HCL 0.4 MG CAP PO SCH (08:30)
[2019-03-17 08:47] LABS: CREATININE, URINE RANDOM 179.1 mg/dL
[2019-03-17] MEDS ORDERED: SODIUM CHLORIDE 1,000 ML IV SCH ×2 (08:52→10:00)
--- NOTE | 2019-03-17 09:06 | PN ---
Documentation entered by Katy Hermosillo SCRIBE, acting as scribe for Ness Szymanski NP. Physical Exam: SUBJECTIVE: Patient seen and examined at bedside. SOB. Denies chest pain, palpitations. Denies fever, sweats, chills. OBJECTIVE: Vital Signs Period Temp Pulse Resp BP Sys/Richardson Pulse Ox Last 24 Hr 97.4 F-98.2 F 64-94 20-22 102-117/59-79 90-91 GENERAL: The patient is awake, alert, and fully oriented. In mild distress secondary to SOB. LUNGS: Diffuse crackles. Rhonchi. Dyspneic with speaking. RR 42 No accessory muscle use HEART: Irregular S1, S2 ABDOMEN: Soft, firm, protuberant, not tender EXTREMITIES: 2+ pulses, warm, well-perfused, 2+ bilateral lower extremity edema L>R NEUROLOGICAL: Cranial nerves II through XII grossly intact. Normal speech Laboratory Results - last 24 hr 03/16/19 03/16/19 03/16/19 05:00 05:00 06:45 WBC RBC Hgb Hct MCV MCH MCHC RDW Plt Count MPV Absolute Neuts (auto) Neutrophils % Lymphocytes % Monocytes % Eosinophils % Basophils % Sodium Potassium Chloride Carbon Dioxide Anion Gap BUN Creatinine Est GFR (CKD-EPI)AfAm Est GFR (CKD-EPI)NonAf Random Glucose Calcium Total Bilirubin AST ALT Alkaline Phosphatase Troponin I Total Protein Albumin Vitamin B12 1280 H TSH 0.55 Urine Color Cancelled Dk yellow Urine Appearance Cancelled Cloudy Urine pH Cancelled 5.0 Ur Specific [place] 1.023 Urine Protein Cancelled 1+ H Urine Glucose (UA) Cancelled Negative Urine Ketones Cancelled Trace H Urine Blood Cancelled Negative Urine Nitrite Cancelled Positive H Urine Bilirubin Cancelled 1+ H Urine Urobilinogen Cancelled 1.0 Ur Leukocyte Esterase Cancelled Negative Urine WBC (Auto) 6 Urine RBC (Auto) 11.8 Urine Casts (Auto) 81 U Epithel Cells (Auto) 5.7 Urine Bacteria (Auto) 15.0 RPR Titer Influenza A (Rapid) Influenza B (Rapid) RSV Rapid 03/16/19 03/16/19 03/16/19 06:45 07:15 07:15 WBC 25.9 H RBC 4.49 Hgb 13.5 Hct 40.0 MCV 89.3 MCH 30.1 MCHC 33.7 RDW 15.0 Plt Count 311 MPV 8.8 Absolute Neuts (auto) 24.5 Neutrophils % 94.3 H Lymphocytes % 2.8 L Monocytes % 2.3 L Eosinophils % 0.1 Basophils % 0.5 Sodium 134 L Potassium 3.6 Chloride 100 Carbon Dioxide 21 Anion Gap 13 BUN 81.0 H Creatinine 3.2 H Est GFR (CKD-EPI)AfAm 19.54 Est GFR (CKD-EPI)NonAf 16.86 Random Glucose 133 H Calcium 8.4 L Total Bilirubin AST ALT Alkaline Phosphatase Troponin I Total Protein Albumin Vitamin B12 TSH Urine Color Urine Appearance Urine pH Ur Specific [place] Urine Protein Urine Glucose (UA) Urine Ketones Urine Blood Urine Nitrite Urine Bilirubin Urine Urobilinogen Ur Leukocyte Esterase Urine WBC (Auto) Urine RBC (Auto) Urine Casts (Auto) U Epithel Cells (Auto) Urine Bacteria (Auto) RPR Titer Nonreactive Influenza A (Rapid) Influenza B (Rapid) RSV Rapid 03/16/19 03/16/19 03/16/19 07:15 16:00 16:00 WBC RBC Hgb Hct MCV MCH MCHC RDW Plt Count MPV Absolute Neuts (auto) Neutrophils % Lymphocytes % Monocytes % Eosinophils % Basophils % Sodium Potassium Chloride Carbon Dioxide Anion Gap BUN Creatinine Est GFR (CKD-EPI)AfAm Est GFR (CKD-EPI)NonAf Random Glucose Calcium Total Bilirubin AST ALT Alkaline Phosphatase Troponin I 0.04 Total Protein Albumin Vitamin B12 TSH Urine Color Urine Appearance Urine pH Ur Specific [place] Urine Protein Urine Glucose (UA) Urine Ketones Urine Blood Urine Nitrite Urine Bilirubin Urine Urobilinogen Ur Leukocyte Esterase Urine WBC (Auto) Urine RBC (Auto) Urine Casts (Auto) U Epithel Cells (Auto) Urine Bacteria (Auto) RPR Titer Influenza A (Rapid) Negative Influenza B (Rapid) Negative RSV Rapid Negative 03/16/19 03/17/19 23:30 07:00 WBC RBC Hgb Hct MCV MCH MCHC RDW Plt Count MPV Absolute Neuts (auto) Neutrophils % Lymphocytes % Monocytes % Eosinophils % Basophils % Sodium 134 L Potassium 3.7 Chloride 101 Carbon Dioxide 21 Anion Gap 12 BUN 100.0 H Creatinine 3.4 H Est GFR (CKD-EPI)AfAm 18.16 Est GFR (CKD-EPI)NonAf 15.67 Random Glucose 142 H Calcium 9.0 Total Bilirubin 0.5 AST 34 ALT 31 Alkaline Phosphatase 100 D Troponin I 0.04 Total Protein 5.6 L Albumin 2.3 L Vitamin B12 TSH Urine Color Urine Appearance Urine pH Ur Specific [place] Urine Protein Urine Glucose (UA) Urine Ketones Urine Blood Urine Nitrite Urine Bilirubin Urine Urobilinogen Ur Leukocyte Esterase Urine WBC (Auto) Urine RBC (Auto) Urine Casts (Auto) U Epithel Cells (Auto) Urine Bacteria (Auto) RPR Titer Influenza A (Rapid) Influenza B (Rapid) RSV Rapid Active Medications Generic Name Dose Route Start Last Admin Trade Name Freq PRN Reason Stop Dose Admin Albuterol/Ipratropium 1 amp 03/15/19 20:00 03/16/19 20:36 Duoneb - NEB 1 amp RQID MANUEL Administration Albuterol/Ipratropium 1 amp 03/16/19 19:15 03/17/19 01:00 Duoneb - NEB 1 amp Q4H PRN Administration SHORTNESS OF BREATH Aspirin 81 mg 03/16/19 10:00 03/16/19 09:07 Ecotrin - PO 81 mg DAILY MANUEL Administration Finasteride 5 mg 03/16/19 10:00 03/16/19 09:07 Proscar - PO 5 mg DAILY MANUEL Administration Piperacillin Sod/Tazobactam 50 mls @ 100 mls/hr 03/16/19 18:00 03/17/19 02:00 Sod 2.25 gm/ Dextrose IVPB 100 mls/hr Q8H-IV MANUEL Administration Protocol Sodium Chloride 1,000 mls @ 42 mls/hr 03/16/19 17:30 03/16/19 18:59 Normal Saline - IV 42 mls/hr ASDIR MANUEL Administration Methylprednisolone Sodium Succinate 40 mg 03/17/19 10:00 Solu-Medrol - IVPUSH 03/22/19 09:59 DAILY MANUEL Metoprolol Succinate 25 mg 03/16/19 10:00 03/16/19 09:07 Toprol Xl - PO 25 mg DAILY MANUEL Administration Multivitamins/Minerals 1 each 03/16/19 10:00 03/16/19 09:08 Theragran-M PO 1 each DAILY MANUEL Administration [id number] Ethyl Esters 1 gm 03/16/19 10:00 03/16/19 09:11 Lovaza - PO 1 gm DAILY MANUEL Administration Tamsulosin HCl 0.8 mg 03/16/19 08:30 03/16/19 09:07 Flomax - PO 0.8 mg DAILY@0830 MANUEL Administration PCP: Dr. Serrano Cards: Dr. Jose Hardy ASSESSMENT/PLAN: 83 year-old male with a PMH significant for HTN, PPM (02/12 Dr. Jose Hardy, [place]) , BPH. Admitted for CAP, VARSHA, now in respiratory failure. 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 Gilbert, cardiology will see patient today --continue ToprolXL, Community acquired pneumonia --03/15 CXR: right infiltrate --CT chest pending --continue Zosyn (day #2) BPH --continue tamsulosin, finasteride Dispo: accepted to ICU, pending transfer. A Visit type - Emergency Visit Emergency Visit: Yes ED Registration Date: 03/15/19 Care time: The patient presented to the Emergency Department on the above date and was hospitalized for further evaluation of their emergent condition. - New Patient This patient is new to me today: Yes Date on this admission: 03/17/19 - Critical Care Critical Care patient: Yes Total Critical Care Time (in minutes): 120 Critical Care Statement: The care of this patient involved high complexity decision making to prevent further life threatening deterioration of the patient 's condition and/or to evaluate & treat vital organ system(s) failure or risk of failure. Ness Szymanski, EMBER: This documentation has been prepared by the [place], SCRIBE, under my direction and personally reviewed by me in its entirety. I confirm that the documentation accurately reflects all work, treatment, procedures, and medical decision making performed by me.
[2019-03-17 09:37] LABS: ANISOCYTOSIS 1+
[2019-03-17 09:38] LABS: PLATELET ESTIMATE ADEQUATE
[2019-03-17] MEDS ORDERED: FUROSEMIDE 40 MG/4 ML INJECTABLE VIAL ONE (09:41)
[2019-03-17] MEDS: MULTIVITAMINS THER W-MINERALS COMBO TABLET (FP) PO SCH (09:50)
[2019-03-17] MEDS ORDERED: methylPREDNISolone NA SUCC 40 MG/1 ML VIAL IVPUSH SCH (10:00)
[2019-03-17] MEDS: metoPROLOL SUCCINATE 25 MG TAB.SR.24H (FP) PO SCH (10:00)
[2019-03-17] MEDS: FINASTERIDE 5 MG TABLET (FP) PO SCH (10:00)
[2019-03-17] MEDS: OMEGA-3 ACID ETHYL ESTERS (FATTY-ACIDS) 1 GM CAPSULE (FP) PO SCH (10:10)
[2019-03-17] MEDS: ASPIRIN COATED 81 MG TABLET.EC PO SCH (10:15)
[2019-03-17] MEDS ORDERED: POTASSIUM CHLORIDE TABS 20 MEQ TABLET.ER (FP) PO ONE (10:45)
--- NOTE | 2019-03-17 11:31 | EKG ---
Test Reason : Blood Pressure : / mmHG Vent. Rate : 103 BPM Atrial Rate : 092 BPM P-R Int : 000 ms QRS Dur : 172 ms QT Int : 366 ms P-R-T Axes : 000 -04 184 degrees QTc Int : 479 ms NORMAL SINUS RHYTHM WITH 1ST DEGREE A-V BLOCK WITH FREQUENT PREMATURE VENTRICULAR AND FUSION COMPLEXES NON-SPECIFIC INTRA-VENTRICULAR CONDUCTION BLOCK INFERIOR INFARCT , AGE UNDETERMINED ABNORMAL ECG Confirmed by Blayne Thakkar MD ([id number]) on 03/17/2019 11:31:29 AM Referred By: EMBER DALTON Confirmed By:Blayne Thakkar MD
[2019-03-17] MEDS ORDERED: FUROSEMIDE 40 MG/4 ML INJECTABLE VIAL IVPUSH ONE ×2 (12:30→13:00)
--- NOTE | 2019-03-17 15:36 | ECHO ---
Version: 1 Name: JANNETH ATWOOD Exam: Adult Echocardiogram Study Date: 03/17/2019, 2:07 PM Age: 83 Years MMode/2D Measurements & Calculations IVSd: 1.64 cm LVIDs: 3.7 cm LVIDd: 4.7 cm LVPWd: 1.29 cm LVOT diam: 2.00 cm Ao root diam: 3.4 cm LA dimension: 4.7 cm Doppler Measurements & Calculations MV E max patel: 59.5 cm/sec MV A max patel: 107.1 cm/sec MV E/A: 0.56 MR max P.9 mmHg Ao max P.8 mmHg Ao mean P.0 mmHg Ao V2 max: 169.0 cm/sec PI end-d patel: 107.3 cm/sec TR max patel: 286.2 cm/sec TR max P.0 mmHg Procedure A limited two-dimensional transthoracic echocardiogram was performed (2D). Left Ventricle The left ventricle is grossly normal size. There is moderate concentric left ventricular hypertrophy . Left ventricular systolic function is normal. Ejection Fraction = 65%. The transmitral spectral Doppler f low pattern is suggestive of impaired LV relaxation. Right Ventricle The right ventricle is moderately dilated. The right ventricular systolic function is mild to modera tely reduced. Atria The left atrium is mildly dilated. The right atrium is mildly dilated. Mitral Valve There is mild mitral annular calcification. There is mild mitral regurgitation. Tricuspid Valve The tricuspid valve is not well visualized, but is grossly normal. There is mild tricuspid regurgita tion. Aortic Valve There is mild aortic sclerosis.;. Pulmonic Valve The pulmonic valve is not well visualized. Great Vessels The aortic root is normal size. Normal aortic arch, descending and ascending aorta. Pericardium/Pleura There is no pericardial effusion. Summary Statements A limited two-dimensional transthoracic echocardiogram was performed (2D). The left ventricle is grossly normal size. Left ventricular systolic function is normal. There is moderate concentric left ventricular hypertrophy. Ejection Fraction = 65%. The transmitral spectral Doppler flow pattern is suggestive of impaired LV relaxation. The right ventricle is moderately dilated. The right ventricular systolic function is mild to moderately reduced. The left atrium is mildly dilated. The right atrium is mildly dilated. There is mild mitral annular calcification. There is mild mitral regurgitation. The tricuspid valve is not well visualized, but is grossly normal. There is mild tricuspid regurgitation. There is mild aortic sclerosis.; The pulmonic valve is not well visualized. The aortic root is normal size. Normal aortic arch, descending and ascending aorta There is no pericardial effusion. Alcides Das 03/17/2019, 3:35 PM Ordering Physician: Wilmar Decker Performed By: Deisy Cervantes
--- NOTE | 2019-03-17 15:47 | CON.CARD ---
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 Approximately 2 weeks of SOB and cough, worsening. Was using OTC cough syrups. Denies fevers, chills. Denies chest pain. No edema. Was found to have possible rl/rml infiltrate. Mild congestion on CXR. Renal failure. Elevated WBC Received total of 120mg IV Lasix today and states he feels "little better" Requiring 50%FIO2 - History Source History Provided By: Patient, Medical Record - Past Medical History Cardio/Vascular: Yes: HTN, Other (PPM) Pulmonary: No: Asthma, Bronchitis, Cancer, COPD, O2 Dependent, Pneumonia, Previously Intubated, Pulmonary Embolus, Pulmonary Fibrosis, Sleep Apnea, Other Gastrointestinal: No: Ascites, Cancer, Constipation, Crohn's Disease, Diverticulitis, Diverticulosis, Esophageal Varices, Gastritis, GERD, GI Bleed, Hemorrhoids, Hiatal Hernia, Inflamatory Bowel Disease, Irritable Bowel Disease, Pancreatitis, Peptic Ulcer Disease, Ulcerative Colitis, Other Hepatobiliary: No: Cirrhosis, Cholelithiasis, Cholecystitis, Choledocholithiasis , Hepatitis A, Hepatitis B, Hepatitis C, Other Renal/: No: Renal Failure, Renal Inusuff, BPH, Cancer, Hematuria, Hemodialysis , Neurogenic Bladder, Renal Calculi, UTI, Other Heme/Onc: No: Anemia, B12 Deficiency, Bleeding Disorder, Cancer, Current Chemotherapy, Current Radiation Therapy, Hemochromatosis, Hypercoaguable State, Myeloproliferative Synd, Sickle Cell Disease, Sickle Cell Trait, Thrombocytopenia, Other Infectious Disease: No: AIDS, C-Diff, Herpes Zoster, HIV, MRSA, STD's, Tuberculosis, VREF, Other Psych: No: Addictions, Anxiety, Bipolar, Depression, Panic, Psychosis, Schizophrenia, Other Musculoskeletal: No: Bursitis, Chronic low back pain, Hemiparesis, Hemiplegia, Osteoarthritis, Paraplegia, Other Rheumatology: No: Fibromyalgia, Gout, Lupus, Rheumatoid Arthritis, Sarcoidosis, Vasculitis, Other ENT: No: Allergic Rhinitis, Sinusitis, Other Endocrine: No: [place]'s Disease, Jose's Disease, Diabetes Insipidus, Diabetes Mellitus, Hyperparathyroidism, Hyperthyroidism, Hypothyroidism, Osteopenia, SIADH, Other Dermatology: No: Basal Cell, Cellulitis, Eczema, Melanoma, Psoriasis, Squamous Cell, Other - Past Surgical History Past Surgical History: Yes: Permanent Pacemaker - Smoking History Smoking history: Never smoked Have you smoked in the past 12 months: No - Social History Usual Living Arrangement: With Spouse ADL: Independent 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 History of Recent Travel: No Home Medications - Allergies Allergies/Adverse Reactions: Allergies Allergy/AdvReac Type Severity Reaction Status Date / Time No Known Allergies Allergy Verified 03/15/19 16:10 - Home Medications Home Medications: Ambulatory Orders "Generic Antacid" 1 tab PO DAILY 03/15/19 Aspirin [Aspirin EC] 81 mg PO DAILY 03/15/19 Cholecalciferol (Vitamin D3) [Vitamin D3] 2,000 unit PO DAILY 03/15/19 Finasteride 5 mg PO DAILY 03/15/19 Hydrochlorothiazide [Hctz -] 12.5 mg PO DAILY 03/15/19 Losartan/Hydrochlorothiazide [Losartan-Hctz 100-25 mg Tab] 1 each PO DAILY 03/15 Metoprolol Succinate [Toprol Xl] 25 mg PO DAILY 03/15/19 Multivit-Min/FA/Lycopen/Lutein [Centrum Silver Tablet] 1 each PO DAILY 03/15/19 Grandin-3 Fatty Acids/Fish Oil [Fish Oil 1,000 mg Capsule] 1 each PO DAILY Tamsulosin HCl [Flomax] 0.8 mg PO DAILY 03/15/19 Family Medical History Family History: Unremarkable Review of Systems Findings/Remarks: Cough, SOB x 2 weeks. - Review of Systems Constitutional: reports: Weakness Neck: reports: No Symptoms Cardiovascular: reports: Shortness of Breath Respiratory: reports: Cough, SOB, SOB on Exertion Gastrointestinal: denies: No Symptoms, Abdominal Pain, Bloating, Constipation, Diarrhea, Dysphagia, Indigestion, Melena, Nausea, Rectal Bleeding, Vomiting, Vomiting Blood, Other Genitourinary: denies: No Symptoms, Burning, Discharge, Dysuria, Flank Pain, Frequency, Hematuria, Incontinence, Lesions, Menses, Pain, Testicular Mass, Testicular Pain, Testicular Swelling, Urgency, Vaginal Bleeding, Other Breasts: denies: No Symptoms Reported, See HPI, Breast Implants, Discharge from Nipple, Lumps, Pain, Skin Changes, Other Integumentary: denies: No Symptoms, Blister, Bruising, Change in Color, Eczema, Erythema, Incision, Lesions, Lump, Pallor, Pruritis, Rash, Wound, Other Neurological: denies: No Symptoms, Change in LOC, Change in Speech, Confusion, Dizziness, Headache, Incoordination, Numbness, Parasthesia, Pre-Existing Deficit , Seizure, Syncope, Tremors, Unsteady Gait, Weakness, Other Endocrine: denies: No Symptoms, Excessive Sweating, Flushing, Increased Hunger, Increased Thirst, Intolerance to Cold, Intolerance to Heat, Unexplained Weight Gain, Unexplained Weight Loss, Other Hematology/Lymphatic: denies: No Symptoms, Easily Bruised, Excessive Bleeding, Swollen Glands, Other Psychiatric: denies: No Symptoms, Altered Sleep Pattern, Anxiety, Depression, Hallucinations, Panic, Paranoia, Suicidal, Other - Risk Factors Known Risk Factors: Yes: Hypertension Vital Signs: Vital Signs Temperature 98.2 F 03/17/19 12:55 Pulse Rate 86 03/17/19 12:55 Respiratory Rate 21 H 03/17/19 12:55 Blood Pressure 126/50 L 03/17/19 12:55 O2 Sat by Pulse Oximetry (%) 97 03/17/19 13:00 Constitutional: Yes: No Distress Neck: Yes: Supple Respiratory: Yes: Other (rales right base, scattered rhonchi) Gastrointestinal: Yes: Soft (NT) Cardiovascular: Yes: Pulse Irregular JVD: No Carotid Bruit: No Heart Sounds: Yes: S1, S2 Edema: LLE: 1+, RLE: 1+ Neurological: Yes: Alert, Oriented - Other Data Labs, Other Data: CBC, BMP 03/17/19 07:00 03/17/19 07:00 Microbiology 03/15/19 17:47 Blood - Peripheral Venous Blood Culture - Preliminary NO GROWTH OBTAINED AFTER 24 HOURS, INCUBATION TO CONTINUE FOR 4 DAYS. 03/15/19 17:47 Blood - Peripheral Venous Blood Culture - Preliminary NO GROWTH OBTAINED AFTER 24 HOURS, INCUBATION TO CONTINUE FOR 4 DAYS. Laboratory Tests 03/16/19 03/16/19 03/16/19 06:45 06:45 07:15 WBC Hgb Plt Count Neutrophils % (Manual) Sodium Potassium BUN 81.0 H Creatinine 3.2 H Troponin I Vitamin B12 1280 H TSH 0.55 RPR Titer Nonreactive Influenza A (Rapid) Influenza B (Rapid) RSV Rapid 03/16/19 03/16/19 03/16/19 07:15 16:00 16:00 WBC Hgb Plt Count Neutrophils % (Manual) Sodium Potassium BUN Creatinine Troponin I 0.04 Vitamin B12 TSH RPR Titer Influenza A (Rapid) Negative Influenza B (Rapid) Negative RSV Rapid Negative 03/16/19 03/17/19 03/17/19 23:30 07:00 07:00 WBC 31.7 H* Hgb 14.1 Plt Count 377 D Neutrophils % (Manual) 91.0 H* Sodium 134 L Potassium 3.7 BUN 100.0 H Creatinine 3.4 H Troponin I 0.04 Vitamin B12 TSH RPR Titer Influenza A (Rapid) Influenza B (Rapid) RSV Rapid NSR 1st degree AVB, RBBB, PVCs TELE: SR, intermittent V pacing Frequent VPCs, NSVT Echo: Other (Normal EF, mild to moderately dilated RV/ Mild to moderately reduced RVEF) Ejection Fraction %: LVEF > or = 40 % Imaging - Results X-ray: Image Reviewed EKG: Image Reviewed Assessment/Plan IMP: 1. Acute hypoxemic respiratory failure, requiring 50% FIO2 2. Probable RML/RLL PNA 3. Acute on chronic diastolic CHF, mild exacerbation 4. Acute on chronic renal failure 5. VPCS/ NSVT 6. 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 RV dysfunction (acute vs chronic?) REC: 1. Continue supp O2/ d/w Dr. Amos, will transfer to ICU at [facility] 2. Chest CT to better define RML/RLL infiltrate and assess degree of CHF 3. F/u cultures/ abx and steroids as per primary medical and critical care team. 4. Renal following. Daily BMP to follow renal fx after receiving IV Lasix today. May need additional Lasix tomorrow pending clinical course and renal function. 5. Daily weights 6. For NSVT: Keep K+ at 4, Mg2+ 2/Continue Metoprolol/ LVEF normal. 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 7. RV dysfx seems likely due to acute hypoxia secondary to PNA/ with concomitant CHF. CXR shows densities RML/RLL. Pulmonary embolism seems less likely. Can check LE venous duplex.
--- NOTE | 2019-03-17 16:38 | PN ---
Progress Note, Physician History of Present Illness: Pt seen and examined at bedside. He is awake and alert. He feels that his breathing is a little better. Pt seen earlier today around 9 30 am. - Current Medication List Current Medications: Active Medications Albuterol/Ipratropium (Duoneb -) 1 amp NEB RQID [facility] Last Admin: 03/17/19 12:15 Dose: 1 amp Albuterol/Ipratropium (Duoneb -) 1 amp NEB Q4H PRN PRN Reason: SHORTNESS OF BREATH Last Admin: 03/17/19 01:00 Dose: 1 amp Aspirin (Ecotrin -) 81 mg PO DAILY [facility] Last Admin: 03/17/19 10:15 Dose: 81 mg Chlorhexidine Gluconate (Hibiclens For Decolonization -) 1 applic TP HS [facility] Finasteride (Proscar -) 5 mg PO DAILY [facility] Last Admin: 03/17/19 10:00 Dose: 5 mg Piperacillin Sod/Tazobactam (Sod 2.25 gm/ Dextrose) 50 mls @ 100 mls/hr IVPB Q8H-IV MANUEL; Protocol Last Admin: 03/17/19 10:05 Dose: 100 mls/hr Metoprolol Succinate (Toprol Xl -) 25 mg PO DAILY [facility] Last Admin: 03/17/19 10:00 Dose: 25 mg Multivitamins/Minerals (Theragran-M) 1 each PO DAILY [facility] Last Admin: 03/17/19 09:50 Dose: 1 each Mupirocin (Bactroban Ointment (For Decolonization) -) 1 applic NS BID [facility] Stop: 03/22/19 21:59 [id number] Ethyl Esters (Lovaza -) 1 gm PO DAILY [facility] Last Admin: 03/17/19 10:10 Dose: 1 gm Tamsulosin HCl (Flomax -) 0.8 mg PO DAILY@0830 [facility] Last Admin: 03/17/19 08:30 Dose: 0.8 mg - Objective Vital Signs: Vital Signs Temperature 98.2 F 03/17/19 12:55 Pulse Rate 86 03/17/19 12:55 Respiratory Rate 21 H 03/17/19 12:55 Blood Pressure 126/50 L 03/17/19 12:55 O2 Sat by Pulse Oximetry (%) 97 03/17/19 13:00 Constitutional: Yes: Calm Eyes: Yes: Conjunctiva Clear HENT: Yes: Atraumatic Neck: Yes: Supple Cardiovascular: Yes: S1, S2 Respiratory: Yes: On Nasal O2, Wheezes Gastrointestinal: Yes: Soft Genitourinary: Yes: WNL Musculoskeletal: Yes: WNL Edema: Yes Edema: LLE: Trace, RLE: Trace Neurological: Yes: Oriented Psychiatric: Yes: Oriented Labs: CBC, BMP 03/17/19 07:00 03/17/19 07:00 Problem List - Problems (1) VARSHA (acute kidney injury) Code(s): N17.9 - ACUTE KIDNEY FAILURE, UNSPECIFIED (2) BPH (benign prostatic hyperplasia) Code(s): N40.0 - BENIGN PROSTATIC HYPERPLASIA WITHOUT LOWER URINRY TRACT SYMP (3) Elevated serum creatinine Code(s): R79.89 - OTHER SPECIFIED ABNORMAL FINDINGS OF BLOOD CHEMISTRY Assessment/Plan Current Medications Generic Name Dose Route Start Last Admin Trade Name Freq PRN Reason Stop Dose Admin Albuterol/Ipratropium 1 amp 03/15/19 20:00 03/17/19 12:15 Duoneb - NEB 1 amp RQID MANUEL Administration Albuterol/Ipratropium 1 amp 03/16/19 19:15 03/17/19 01:00 Duoneb - NEB 1 amp Q4H PRN Administration SHORTNESS OF BREATH Aspirin 81 mg 03/16/19 10:00 03/17/19 10:15 Ecotrin - PO 81 mg DAILY MANUEL Administration Chlorhexidine Gluconate 1 applic 03/17/19 22:00 Hibiclens For Decolonization - TP HS MANUEL Finasteride 5 mg 03/16/19 10:00 03/17/19 10:00 Proscar - PO 5 mg DAILY MANUEL Administration Piperacillin Sod/Tazobactam 50 mls @ 100 mls/hr 03/16/19 18:00 03/17/19 10:05 Sod 2.25 gm/ Dextrose IVPB 100 mls/hr Q8H-IV MANUEL Administration Protocol Metoprolol Succinate 25 mg 03/16/19 10:00 03/17/19 10:00 Toprol Xl - PO 25 mg DAILY MANUEL Administration Multivitamins/Minerals 1 each 03/16/19 10:00 03/17/19 09:50 Theragran-M PO 1 each DAILY MANUEL Administration Mupirocin 1 applic 03/17/19 22:00 Bactroban Ointment (For Decolonization) - NS 03/22/19 21:59 BID MANUEL [id number] Ethyl Esters 1 gm 03/16/19 10:00 03/17/19 10:10 Lovaza - PO 1 gm DAILY MANUEL Administration Tamsulosin HCl 0.8 mg 03/16/19 08:30 03/17/19 08:30 Flomax - PO 0.8 mg DAILY@0830 MANUEL Administration Impression 1. VARSHA 2. PNA 3. hx HTN 4. BPH 5. hx PPM 6. 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
--- NOTE | 2019-03-17 17:20 | CONSULT ---
Consultation: REQUESTING PROVIDER: CONSULT REQUEST: We have been asked to medically evaluate this patient for (specify). HISTORY OF PRESENT ILLNESS: 83 y.o. 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 Pt says for the pas 2-3 weeks he has had a cough productive of ambrosio sputum. Also endorses increasing dyspnea since Saturday. Patient is having difficulty catching his breath while speaking with me. Currently saturating well on venti mask. Of note, patient's is a sick contact who has had URI symptoms for the past week. Denies chest pain/ palpitations/ headaches/ nausea/ vomiting/ diarrhea/ myalgias. REVIEW OF SYSTEMS: CONSTITUTIONAL: Absent: fever, chills, diaphoresis, generalized weakness, malaise, loss of appetite, weight change HEENT: Absent: rhinorrhea, nasal congestion, throat pain, throat swelling, difficulty swallowing, mouth swelling, ear pain, eye pain, visual changes CARDIOVASCULAR: Absent: chest pain, syncope, palpitations, irregular heart rate, lightheadedness, peripheral edema RESPIRATORY: cough, shortness of breath, dyspnea with exertion Absent: orthopnea, wheezing, stridor, hemoptysis GASTROINTESTINAL: Absent: abdominal pain, abdominal distension, nausea, vomiting, diarrhea, constipation, melena, hematochezia GENITOURINARY: genital pain @ urethral meatus / issa insertion Absent: dysuria, frequency, urgency, hesitancy, hematuria, flank pain MUSCULOSKELETAL: Absent: myalgia, arthralgia, joint swelling, back pain, neck pain SKIN: Absent: rash, itching, pallor HEMATOLOGIC/IMMUNOLOGIC: Absent: easy bleeding, easy bruising, lymphadenopathy, frequent infections ENDOCRINE: Absent: unexplained weight gain, unexplained weight loss, heat intolerance, cold intolerance NEUROLOGIC: Absent: headache, focal weakness or paresthesias, dizziness, unsteady gait, seizure, mental status changes, bladder or bowel incontinence PSYCHIATRIC: Absent: anxiety, depression, suicidal or homicidal ideation, hallucinations. PHYSICAL EXAMINATION Vital Signs - 24 hr 03/16/19 03/16/19 03/16/19 18:00 21:00 22:00 Temperature 97.7 F 97.4 F L Pulse Rate 94 H 94 H Respiratory 20 20 20 Rate Blood Pressure 117/68 114/70 O2 Sat by Pulse 90 L 90 L 90 L Oximetry (%) 03/17/19 03/17/19 03/17/19 02:00 06:00 06:31 Temperature 98.1 F 98.2 F Pulse Rate 94 H 64 Respiratory 22 H 20 Rate Blood Pressure 102/79 112/59 L O2 Sat by Pulse 91 L Oximetry (%) 03/17/19 03/17/19 03/17/19 09:00 12:55 13:00 Temperature 98.2 F Pulse Rate 86 Respiratory 20 21 H Rate Blood Pressure 126/50 L O2 Sat by Pulse 91 L 97 Oximetry (%) GENERAL: Awake, alert, and fully oriented. In mild distress due to dyspnea. HEENT: NCAT. Venti mask in place. Clear sclera. LUNGS: No stridor. Right lobe whezing; clear left lobe. No incr work of breathing, no accessory muscle use. HEART: Regular rate and rhythm, normal S1 and S2 without murmur, rub or gallop. ABDOMEN: Soft, nontender, not distended, normoactive bowel sounds. No organomegaly. EXTREMITIES: 2+ peripherla pulses palpated b/l. No peripheral edema. NEUROLOGICAL: Cranial nerves II-XII intact SKIN: No rashes/ lesions noted Laboratory Results - last 24 hr 03/16/19 03/16/19 03/16/19 06:45 06:45 16:00 WBC RBC Hgb Hct MCV MCH MCHC RDW Plt Count MPV Absolute Neuts (auto) Neutrophils % Neutrophils % (Manual) Band Neutrophils % Lymphocytes % Lymphocytes % (Manual) Myelocytes % (Man) Metamyelocytes Platelet Estimate Poikilocytosis Anisocytosis Anticoagulation Therapy Puncture Site Patient Temperature ABG pH ABG pCO2 at Pt Temp ABG pO2 at Pt Temp ABG HCO3 ABG O2 Sat (Measured) ABG O2 Content ABG Base Excess Harshal Test O2 Delivery Device Oxygen Flow Rate Vent Mode Vent Rate Mechanical Rate PEEP Pressure Support Vent Sodium Potassium Chloride Carbon Dioxide Anion Gap BUN Creatinine Est GFR (CKD-EPI)AfAm Est GFR (CKD-EPI)NonAf Random Glucose Calcium Magnesium Total Bilirubin AST ALT Alkaline Phosphatase Total Protein Albumin Vitamin B12 1280 H TSH 0.55 Urine Color Urine Appearance Urine pH Urine Protein Urine Glucose (UA) Urine Ketones Urine Blood Urine Nitrite Urine Bilirubin Urine Urobilinogen Ur Leukocyte Esterase Ur Random Creatinine U Random Total Protein Ur Random Sodium Ur Random Potassium Ur Random Chloride RPR Titer Nonreactive Influenza A (Rapid) Influenza B (Rapid) RSV Rapid Negative 03/16/19 03/17/19 03/17/19 16:00 05:30 05:30 WBC RBC Hgb Hct MCV MCH MCHC RDW Plt Count MPV Absolute Neuts (auto) Neutrophils % Neutrophils % (Manual) Band Neutrophils % Lymphocytes % Lymphocytes % (Manual) Myelocytes % (Man) Metamyelocytes Platelet Estimate Poikilocytosis Anisocytosis Anticoagulation Therapy Puncture Site Patient Temperature ABG pH ABG pCO2 at Pt Temp ABG pO2 at Pt Temp ABG HCO3 ABG O2 Sat (Measured) ABG O2 Content ABG Base Excess Harshal Test O2 Delivery Device Oxygen Flow Rate Vent Mode Vent Rate Mechanical Rate PEEP Pressure Support Vent Sodium Potassium Chloride Carbon Dioxide Anion Gap BUN Creatinine Est GFR (CKD-EPI)AfAm Est GFR (CKD-EPI)NonAf Random Glucose Calcium Magnesium Total Bilirubin AST ALT Alkaline Phosphatase Total Protein Albumin Vitamin B12 TSH Urine Color Urine Appearance Urine pH Urine Protein Urine Glucose (UA) Urine Ketones Urine Blood Urine Nitrite Urine Bilirubin Urine Urobilinogen Ur Leukocyte Esterase Ur Random Creatinine 179.1 U Random Total Protein 61.5 H Ur Random Sodium 10 L Ur Random Potassium 41.6 Ur Random Chloride 20 L RPR Titer Influenza A (Rapid) Negative Influenza B (Rapid) Negative RSV Rapid 03/17/19 03/17/19 03/17/19 05:30 06:40 07:00 WBC 31.7 H* RBC 4.82 Hgb 14.1 Hct 42.3 MCV 87.9 MCH 29.2 MCHC 33.2 RDW 14.8 Plt Count 377 D MPV 8.8 Absolute Neuts (auto) 30.6 Neutrophils % No Result Required. Neutrophils % (Manual) 91.0 H* Band Neutrophils % 2.0 Lymphocytes % No Result Required. Lymphocytes % (Manual) 3.0 L D Myelocytes % (Man) 3 H Metamyelocytes 1 Platelet Estimate Adequate Poikilocytosis 1+ Anisocytosis 1+ Anticoagulation Therapy Puncture Site Patient Temperature ABG pH ABG pCO2 at Pt Temp ABG pO2 at Pt Temp ABG HCO3 ABG O2 Sat (Measured) ABG O2 Content ABG Base Excess Harshal Test O2 Delivery Device Oxygen Flow Rate Vent Mode Vent Rate Mechanical Rate PEEP Pressure Support Vent Sodium Potassium Chloride Carbon Dioxide Anion Gap BUN Creatinine Est GFR (CKD-EPI)AfAm Est GFR (CKD-EPI)NonAf Random Glucose Calcium Magnesium 2.4 Total Bilirubin AST ALT Alkaline Phosphatase Total Protein Albumin Vitamin B12 TSH Urine Color Yellow Urine Appearance Clear Urine pH 5.0 Urine Protein Trace Urine Glucose (UA) Negative Urine Ketones Negative Urine Blood Negative Urine Nitrite Negative Urine Bilirubin Negative Urine Urobilinogen 0.2 Ur Leukocyte Esterase Negative Ur Random Creatinine U Random Total Protein Ur Random Sodium Ur Random Potassium Ur Random Chloride RPR Titer Influenza A (Rapid) Influenza B (Rapid) RSV Rapid 03/17/19 03/17/19 07:00 11:00 WBC RBC Hgb Hct MCV MCH MCHC RDW Plt Count MPV Absolute Neuts (auto) Neutrophils % Neutrophils % (Manual) Band Neutrophils % Lymphocytes % Lymphocytes % (Manual) Myelocytes % (Man) Metamyelocytes Platelet Estimate Poikilocytosis Anisocytosis Anticoagulation Therapy Cancelled Puncture Site Cancelled Patient Temperature Cancelled ABG pH Cancelled ABG pCO2 at Pt Temp Cancelled ABG pO2 at Pt Temp Cancelled ABG HCO3 Cancelled ABG O2 Sat (Measured) Cancelled ABG O2 Content Cancelled ABG Base Excess Cancelled Harshal Test Cancelled O2 Delivery Device Cancelled Oxygen Flow Rate Cancelled Vent Mode Cancelled Vent Rate Cancelled Mechanical Rate Cancelled PEEP Cancelled Pressure Support Vent Cancelled Sodium 134 L Potassium 3.7 Chloride 101 Carbon Dioxide 21 Anion Gap 12 BUN 100.0 H Creatinine 3.4 H Est GFR (CKD-EPI)AfAm 18.16 Est GFR (CKD-EPI)NonAf 15.67 Random Glucose 142 H Calcium 9.0 Magnesium Total Bilirubin 0.5 AST 34 ALT 31 Alkaline Phosphatase 100 D Total Protein 5.6 L Albumin 2.3 L Vitamin B12 TSH Urine Color Urine Appearance Urine pH Urine Protein Urine Glucose (UA) Urine Ketones Urine Blood Urine Nitrite Urine Bilirubin Urine Urobilinogen Ur Leukocyte Esterase Ur Random Creatinine U Random Total Protein Ur Random Sodium Ur Random Potassium Ur Random Chloride RPR Titer Influenza A (Rapid) Influenza B (Rapid) RSV Rapid Active Medications Generic Name Dose Route Start Last Admin Trade Name Freq PRN Reason Stop Dose Admin Albuterol/Ipratropium 1 amp 03/15/19 20:00 03/17/19 12:15 Duoneb - NEB 1 amp RQID [facility] Administration Albuterol/Ipratropium 1 amp 03/16/19 19:15 03/17/19 01:00 Duoneb - NEB 1 amp Q4H PRN Administration SHORTNESS OF BREATH Aspirin 81 mg 03/16/19 10:00 03/17/19 10:15 Ecotrin - PO 81 mg DAILY [facility] Administration Chlorhexidine Gluconate 1 applic 03/17/19 22:00 Hibiclens For Decolonization - TP HS [facility] Finasteride 5 mg 03/16/19 10:00 03/17/19 10:00 Proscar - PO 5 mg DAILY [facility] Administration Piperacillin Sod/Tazobactam 50 mls @ 100 mls/hr 03/16/19 18:00 03/17/19 10:05 Sod 2.25 gm/ Dextrose IVPB 100 mls/hr Q8H-IV [facility] Administration Protocol Metoprolol Succinate 25 mg 03/16/19 10:00 03/17/19 10:00 Toprol Xl - PO 25 mg DAILY [facility] Administration Multivitamins/Minerals 1 each 03/16/19 10:00 03/17/19 09:50 Theragran-M PO 1 each DAILY [facility] Administration Mupirocin 1 applic 03/17/19 22:00 Bactroban Ointment (For Decolonization) - NS 03/22/19 21:59 BID MANUEL Kqhll-8-[id number] Ethyl Esters 1 gm 03/16/19 10:00 03/17/19 10:10 Lovaza - PO 1 gm DAILY [facility] Administration Tamsulosin HCl 0.8 mg 03/16/19 08:30 03/17/19 08:30 Flomax - PO 0.8 mg DAILY@0830 [facility] Administration ASSESSMENT/PLAN: 83 y.o. M PMH HTN, heart block s/p pacemaker placement 01/2019, BPH, morbid obesity presenting for sepsis 2/2 pneumonia. 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 C/w Metoprolol -Echo: LVEF 65%. Mod concentric LVH. Reduced RV systolic function. -trops wnl -F/u CT chest to assess CHF extent -s/p 120mg IV lasix today w/ 1.5L output; issa in place -monitor Is & Os, daily weights -f/u records with outpatient caridologist Dr. Jose Hardy-- had recent stress test prior to pacemaker placement -Dr. stapleton following #Pulm -Continue oxygen therapy, now on high flow -CXR shows R infiltrates -F/u CT chest -F/u LE duplex r/o dvt -continue duonebs prn -s/p 40mg solumedrol #Renal -VARSHA; latest Cr 3.4 -- f/u repeat. baseline ~1.5 -s/p lasix -renal U/S" : simple cyst 1.3 cm. no hydronephrosis -holding ARB -Dr. hand following # -Hx BPH -flomax, finasteride-- home meds -UA + nitrites -issa in place #ID -empiric vanc/zosyn; s/p vanc/zosyn/zithromax dose in ED -f/u cultures -dr. caicedo following #FENLTD -no ivf -trend lytes replete prn -npo -peirpheral lines -issa placed Dispo: We will continue to follow the patient. Thank you for this consultative opportunity. Visit type - Emergency Visit Emergency Visit: Yes ED Registration Date: 03/15/19 Care time: The patient presented to the Emergency Department on the above date and was hospitalized for further evaluation of their emergent condition. - New Patient This patient is new to me today: Yes Date on this admission: 05/01/19 - Critical Care Critical Care patient: Yes Total Critical Care Time (in minutes): 45 Critical Care Statement: The care of this patient involved high complexity decision making to prevent further life threatening deterioration of the patient's condition and/or to evaluate & treat vital organ system(s) failure or risk of failure. ATTENDING PHYSICIAN STATEMENT I saw and evaluated the patient. I reviewed the resident's note and discussed the case with the resident. I agree with the resident's findings and plan as documented. SUBJECTIVE: OBJECTIVE: ASSESSMENT AND PLAN:
[2019-03-17] MEDS ORDERED: ALBUTEROL SO4 2.5/IPRATROPIUM 0.5 INH SOL 3 ML VIAL.NEB. NEB PRN (18:08)
[2019-03-17 18:48] LABS: BASO % 0.3 % (0-2.0); HEMATOCRIT 42.9 % (35.4-49); HEMOGLOBIN 14.3 GM/dL (11.7-16.9); LYMPH % 2.6 % (8-40); MCH 29.1 pg (25.7-33.7); MCHC 33.4 g/dl (32.0-35.9); MEAN CELL VOLUME 87.2 fl (80-96); MEAN PLT VOLUME 8.1 fl (7.5-11.1); MONO % 4.4 % (3.8-10.2); NEUT % 92.7 % (42.8-82.8); PLATELET COUNT 390 K/MM3 (134-434); RBC 4.92 M/mm3 (4.00-5.60); RDW 15.9 % (11.9-15.9)
[2019-03-17 18:51] LABS: ARTERIAL BLD GAS O2 SATURATION 91.6 % (95-98); ARTERIAL BLOOD GAS PCO2 32.5 mmHg (35-45); ARTERIAL BLOOD GAS PO2 65.7 mmHg (80-100); ARTERIAL BLOOD GAS pH 7.39 (7.35-7.45)
[2019-03-17 18:52] LABS: ALLENS TEST POSITIVE
[2019-03-17 20:05] LABS: PLATELET ESTIMATE ADEQUATE
[2019-03-17 20:21] LABS: ALBUMIN 2.4 g/dl (3.4-5.0); BILIRUBIN,TOTAL 0.5 mg/dL (0.2-1); CALCIUM 9.3 mg/dL (8.5-10.1); CREATININE 3.4 mg/dL (0.55-1.3); MAGNESIUM 2.7 mg/dL (1.8-2.4); PHOSPHOROUS 4.4 mg/dL (2.5-4.9); TOT PROT 5.9 g/dl (6.4-8.2)
[2019-03-17 20:23] LABS: BLOOD UREA NITROGEN 113.3 mg/dL (7-18)
[2019-03-17] MEDS ORDERED: MELATONIN 5 MG TABLETS PO ONE (21:54)
[2019-03-17] MEDS: MUPIROCIN 2% TOPICAL OINTMENT FOR DECOLONIZATION NS SCH (22:16)
[2019-03-17] MEDS: CHLORHEXIDINE GLUCONATE 4% CLEANSER FOR DECOLONIZATION TP SCH (22:16)
[2019-03-18] MEDS ORDERED: DEXTROSE 5%-WATER - 50 ML IVPB ONE ×3 (01:05→18:18)
[2019-03-18] MEDS ORDERED: PIPERACILLIN/TAZOBACTAM 2.25 GM VIAL IVPB ONE ×3 (01:05→18:18)
[2019-03-18] MEDS: PIPERACILLIN/TAZOB 2.25 GM 2.25 GM in DEXTROSE 5%-WATER - 50 ML IVPB SCH ×3 (01:09→18:28)
[2019-03-18] MEDS ORDERED: PIPERACILLIN/TAZOB 2.25 GM 2.25 GM in DEXTROSE 5%-WATER - 50 ML IVPB SCH ×2 (02:00→09:00)
[2019-03-18] MEDS ORDERED: VANCOMYCIN 1 GM in D5W (PRE-DOCKED) 1,000 MG/250 ML IVPB ONE (07:45)
[2019-03-18] MEDS: ALBUTEROL SO4 2.5/IPRATROPIUM 0.5 INH SOL 3 ML VIAL.NEB. NEB SCH ×4 (08:15→20:32)
[2019-03-18 08:47] LABS: BASO % 0.4 % (0-2.0); EOS % 0.7 % (0-4.5); HEMATOCRIT 42.5 % (35.4-49); HEMOGLOBIN 14.1 GM/dL (11.7-16.9); LYMPH % 4.6 % (8-40); MCH 29.5 pg (25.7-33.7); MEAN CELL VOLUME 89.3 fl (80-96); MEAN PLT VOLUME 8.4 fl (7.5-11.1); MONO % 4.6 % (3.8-10.2); NEUT % 89.7 % (42.8-82.8); PLATELET COUNT 392 K/MM3 (134-434); RBC 4.76 M/mm3 (4.00-5.60); RDW 16.8 % (11.9-15.9); WHITE BLOOD COUNT 27.5 K/mm3 (4.0-10.0)
[2019-03-18 09:36] LABS: ALBUMIN 2.2 g/dl (3.4-5.0); BILIRUBIN,TOTAL 0.6 mg/dL (0.2-1); CREATININE 3.3 mg/dL (0.55-1.3); POTASSIUM 4.2 mmol/L (3.5-5.1); TOT PROT 5.4 g/dl (6.4-8.2)
[2019-03-18 09:38] LABS: BLOOD UREA NITROGEN 106.8 mg/dL (7-18)
[2019-03-18] MEDS: ASPIRIN COATED 81 MG TABLET.EC PO SCH (10:09)
[2019-03-18] MEDS: FINASTERIDE 5 MG TABLET (FP) PO SCH (10:10)
[2019-03-18] MEDS: MULTIVITAMINS THER W-MINERALS COMBO TABLET (FP) PO SCH (10:10)
[2019-03-18] MEDS: TAMSULOSIN HCL 0.4 MG CAP PO SCH (10:10)
[2019-03-18] MEDS: metoPROLOL SUCCINATE 25 MG TAB.SR.24H (FP) PO SCH (10:10)
[2019-03-18] MEDS: OMEGA-3 ACID ETHYL ESTERS (FATTY-ACIDS) 1 GM CAPSULE (FP) PO SCH (10:10)
[2019-03-18] MEDS: MUPIROCIN 2% TOPICAL OINTMENT FOR DECOLONIZATION NS SCH ×2 (10:28→21:48)
--- NOTE | 2019-03-18 11:29 | PN ---
Progress Note, Physician History of Present Illness: TRANSFERRED TO ICU AWAKE, RESPONSIVE SLIGHTLY TACHYPNEIC ON HIGH FLOW O2 CT CHEST BILATERAL INFILTRATES R>L LEUKOCYTOSIS IMPROVED LEGIONELLA/ PNEUMOCOCCAL AG (-) SPUTUM C/S NORMAL MAICOL - Current Medication List Current Medications: Active Medications Albuterol/Ipratropium (Duoneb -) 1 amp NEB Q4H PRN PRN Reason: SHORTNESS OF BREATH Albuterol/Ipratropium (Duoneb -) 1 amp NEB RQID [facility] Last Admin: 03/18/19 08:15 Dose: 1 amp Aspirin (Ecotrin -) 81 mg PO DAILY [facility] Last Admin: 03/18/19 10:09 Dose: 81 mg Chlorhexidine Gluconate (Hibiclens For Decolonization -) 1 applic TP HS [facility] Last Admin: 03/17/19 22:16 Dose: 1 applic Finasteride (Proscar -) 5 mg PO DAILY [facility] Last Admin: 03/18/19 10:10 Dose: 5 mg Piperacillin Sod/Tazobactam (Sod 2.25 gm/ Dextrose) 50 mls @ 100 mls/hr IVPB Q8H-IV [facility]; Protocol Stop: 03/19/19 19:44 Last Admin: 03/18/19 10:07 Dose: 100 mls/hr Metoprolol Succinate (Toprol Xl -) 25 mg PO DAILY [facility] Last Admin: 03/18/19 10:10 Dose: 25 mg Multivitamins/Minerals (Theragran-M) 1 each PO DAILY [facility] Last Admin: 03/18/19 10:10 Dose: 1 each Mupirocin (Bactroban Ointment (For Decolonization) -) 1 applic NS BID [facility] Stop: 03/22/19 21:59 Last Admin: 03/18/19 10:28 Dose: 1 applic Oebjm-1-Lfpr Ethyl Esters (Lovaza -) 1 gm PO DAILY [facility] Last Admin: 03/18/19 10:10 Dose: 1 gm Tamsulosin HCl (Flomax -) 0.8 mg PO DAILY@0830 [facility] Last Admin: 03/18/19 10:10 Dose: 0.8 mg - Objective Vital Signs: Vital Signs Temperature 98.4 F 03/18/19 10:08 Pulse Rate 91 H 03/18/19 10:08 Respiratory Rate 32 H 03/18/19 10:08 Blood Pressure 135/84 03/18/19 10:08 O2 Sat by Pulse Oximetry (%) 94 L 03/17/19 21:00 Constitutional: Yes: No Distress Cardiovascular: Yes: Regular Rate and Rhythm, S1, S2 Respiratory: Yes: Other (+ CREPITATIONS R BASE) Gastrointestinal: Yes: Normal Bowel Sounds, Soft, Abdomen, Obese. No: Tenderness Edema: LLE: 1+, RLE: 1+ Labs: CBC, BMP 03/18/19 05:15 03/18/19 05:15 Assessment/Plan PNEUMONIA R/O SEPSIS SECONDARY TO PNEUMONIA LEUKOCYTOSIS IMPROVED AZOTEMIA S/P PPM CONTINUE EMPIRIC ZOSYN
--- NOTE | 2019-03-18 11:29 | PN ---
Progress Note (short form) - Note Progress Note: s: no chest pain, palps, dizziness. cough stable, sob improving Current Medications Albuterol/Ipratropium (Duoneb -) 1 amp NEB Q4H PRN PRN Reason: SHORTNESS OF BREATH Albuterol/Ipratropium (Duoneb -) 1 amp NEB RQID [facility] Last Admin: 03/18/19 08:15 Dose: 1 amp Aspirin (Ecotrin -) 81 mg PO DAILY [facility] Last Admin: 03/18/19 10:09 Dose: 81 mg Chlorhexidine Gluconate (Hibiclens For Decolonization -) 1 applic TP HS [facility] Last Admin: 03/17/19 22:16 Dose: 1 applic Finasteride (Proscar -) 5 mg PO DAILY [facility] Last Admin: 03/18/19 10:10 Dose: 5 mg Piperacillin Sod/Tazobactam (Sod 2.25 gm/ Dextrose) 50 mls @ 100 mls/hr IVPB Q8H-IV [facility]; Protocol Stop: 03/19/19 19:44 Last Admin: 03/18/19 10:07 Dose: 100 mls/hr Metoprolol Succinate (Toprol Xl -) 25 mg PO DAILY [facility] Last Admin: 03/18/19 10:10 Dose: 25 mg Multivitamins/Minerals (Theragran-M) 1 each PO DAILY [facility] Last Admin: 03/18/19 10:10 Dose: 1 each Mupirocin (Bactroban Ointment (For Decolonization) -) 1 applic NS BID [facility] Stop: 03/22/19 21:59 Last Admin: 03/18/19 10:28 Dose: 1 applic Kixrf-2-Piza Ethyl Esters (Lovaza -) 1 gm PO DAILY [facility] Last Admin: 03/18/19 10:10 Dose: 1 gm Tamsulosin HCl (Flomax -) 0.8 mg PO DAILY@0830 [facility] Last Admin: 03/18/19 10:10 Dose: 0.8 mg Vital Signs Period Temp Pulse Resp BP Sys/Richardson Pulse Ox Last 24 Hr 97.3 F-98.4 F 84-108 21-32 126-148/50-94 94-97 Constitutional: Yes: No Distress Neck: Yes: Supple Respiratory: Yes: Other (rales right base, scattered rhonchi) Gastrointestinal: Yes: Soft (NT) Cardiovascular: Yes: Pulse Irregular JVD: No Carotid Bruit: No Heart Sounds: Yes: S1, S2 Edema: LLE: 1+, RLE: 1+ Neurological: Yes: Alert, Oriented NSR 1st degree AVB, RBBB, PVCs TELE: SR, intermittent V pacing, PVCs Echo: Other (Normal EF, mild to moderately dilated RV/ Mild to moderately reduced RVEF) Ejection Fraction %: LVEF > or = 40 % Imaging - Results X-ray: Image Reviewed EKG: Image Reviewed Assessment/Plan IMP: 1. Acute hypoxemic respiratory failure, requiring 50% FIO2 2. Probable RML/RLL PNA 3. Acute on chronic diastolic CHF, mild exacerbation 4. Acute on chronic renal failure 5. VPCS/ NSVT 6. 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 RV dysfunction (acute vs chronic?) REC: 1. cont monitoring in ICU 2. Chest CT c/w PNA, manage per primary 3. F/u cultures/ abx and steroids as per primary medical and critical care team. 4. appears euvolemic, hold lasix today 5. Daily weights 6. For NSVT: Keep K+ at 4, Mg2+ 2/Continue Metoprolol/ LVEF normal. Pt reports recent nuclear stress prior to PPM that was "ok"- will need to obtain reports from Dr. Jose Hardy (outpatient prototype model maker). 7. RV dysfx seems likely due to acute hypoxia secondary to PNA
--- NOTE | 2019-03-18 11:47 | PN ---
Progress Note, Physician History of Present Illness: Pt seen and examined at bedside. He is now in the ICU. He appears comfortable. - Current Medication List Current Medications: Active Medications Albuterol/Ipratropium (Duoneb -) 1 amp NEB Q4H PRN PRN Reason: SHORTNESS OF BREATH Albuterol/Ipratropium (Duoneb -) 1 amp NEB RQID [facility] Last Admin: 03/18/19 08:15 Dose: 1 amp Aspirin (Ecotrin -) 81 mg PO DAILY [facility] Last Admin: 03/18/19 10:09 Dose: 81 mg Chlorhexidine Gluconate (Hibiclens For Decolonization -) 1 applic TP HS [facility] Last Admin: 03/17/19 22:16 Dose: 1 applic Finasteride (Proscar -) 5 mg PO DAILY [facility] Last Admin: 03/18/19 10:10 Dose: 5 mg Piperacillin Sod/Tazobactam (Sod 2.25 gm/ Dextrose) 50 mls @ 100 mls/hr IVPB Q8H-IV [facility]; Protocol Stop: 03/19/19 19:44 Last Admin: 03/18/19 10:07 Dose: 100 mls/hr Metoprolol Succinate (Toprol Xl -) 25 mg PO DAILY [facility] Last Admin: 03/18/19 10:10 Dose: 25 mg Multivitamins/Minerals (Theragran-M) 1 each PO DAILY [facility] Last Admin: 03/18/19 10:10 Dose: 1 each Mupirocin (Bactroban Ointment (For Decolonization) -) 1 applic NS BID [facility] Stop: 03/22/19 21:59 Last Admin: 03/18/19 10:28 Dose: 1 applic Riyir-8-Pxkf Ethyl Esters (Lovaza -) 1 gm PO DAILY [facility] Last Admin: 03/18/19 10:10 Dose: 1 gm Tamsulosin HCl (Flomax -) 0.8 mg PO DAILY@0830 [facility] Last Admin: 03/18/19 10:10 Dose: 0.8 mg - Objective Vital Signs: Vital Signs Temperature 98.4 F 03/18/19 10:08 Pulse Rate 91 H 03/18/19 10:08 Respiratory Rate 32 H 03/18/19 10:08 Blood Pressure 135/84 03/18/19 10:08 O2 Sat by Pulse Oximetry (%) 94 L 03/17/19 21:00 Constitutional: Yes: Calm Eyes: Yes: Conjunctiva Clear HENT: Yes: Atraumatic Cardiovascular: Yes: S1, S2 Respiratory: Yes: On Nasal O2, Rales Gastrointestinal: Yes: Soft Genitourinary: Yes: Barraza Present Musculoskeletal: Yes: WNL Edema: Yes Edema: LLE: Trace, RLE: Trace Integumentary: Yes: WNL Neurological: Yes: Oriented Psychiatric: Yes: Oriented Labs: CBC, BMP 03/18/19 05:15 03/18/19 05:15 Problem List - Problems (1) VARSHA (acute kidney injury) Code(s): N17.9 - ACUTE KIDNEY FAILURE, UNSPECIFIED (2) BPH (benign prostatic hyperplasia) Code(s): N40.0 - BENIGN PROSTATIC HYPERPLASIA WITHOUT LOWER URINRY TRACT SYMP (3) Elevated serum creatinine Code(s): R79.89 - OTHER SPECIFIED ABNORMAL FINDINGS OF BLOOD CHEMISTRY Assessment/Plan Current Medications Generic Name Dose Route Start Last Admin Trade Name Freq PRN Reason Stop Dose Admin Albuterol/Ipratropium 1 amp 03/17/19 18:08 Duoneb - NEB Q4H PRN SHORTNESS OF BREATH Albuterol/Ipratropium 1 amp 03/17/19 20:00 03/18/19 08:15 Duoneb - NEB 1 amp RQID [facility] Administration Aspirin 81 mg 03/18/19 10:00 03/18/19 10:09 Ecotrin - PO 81 mg DAILY [facility] Administration Chlorhexidine Gluconate 1 applic 03/17/19 22:00 03/17/19 22:16 Hibiclens For Decolonization - TP 1 applic HS [facility] Administration Finasteride 5 mg 03/18/19 10:00 03/18/19 10:10 Proscar - PO 5 mg DAILY [facility] Administration Piperacillin Sod/Tazobactam 50 mls @ 100 mls/hr 03/17/19 19:45 03/18/19 10:07 Sod 2.25 gm/ Dextrose IVPB 03/19/19 19:44 100 mls/hr Q8H-IV [facility] Administration Protocol Metoprolol Succinate 25 mg 03/18/19 10:00 03/18/19 10:10 Toprol Xl - PO 25 mg DAILY [facility] Administration Multivitamins/Minerals 1 each 03/18/19 10:00 03/18/19 10:10 Theragran-M PO 1 each DAILY [facility] Administration Mupirocin 1 applic 03/17/19 22:00 03/18/19 10:28 Bactroban Ointment (For Decolonization) - NS 03/22/19 21:59 1 applic BID [facility] Administration Nhynv-9-Ujzb Ethyl Esters 1 gm 03/18/19 10:00 03/18/19 10:10 Lovaza - PO 1 gm DAILY [facility] Administration Tamsulosin HCl 0.8 mg 03/18/19 08:30 03/18/19 10:10 Flomax - PO 0.8 mg DAILY@0830 [facility] Administration Impression 1. VARSHA 2. PNA 3. hx HTN 4. BPH 5. hx PPM 6. sepsis Plan - wbc starting to improve - cont abx - PNA on ct chest - monitor renal function - hold lasix - repeat labs in am - monitor pulse ox - monitor volume status - follow serologies
[2019-03-18 12:59] LABS: ANISOCYTOSIS 1+; MACROCYTOSIS 0; PLATELET ESTIMATE NORMAL; TARGET CELLS 1+; TEAR DROP CELLS 1+
--- NOTE | 2019-03-18 13:46 | PN ---
Teaching Attending Note Name of Resident: Dahlia Schaeffer ATTENDING PHYSICIAN STATEMENT I saw and evaluated the patient. I reviewed the resident's note and discussed the case with the resident. I agree with the resident's findings and plan as documented. SUBJECTIVE: Pt seen and examined in the ICU. On HFOT with 60% FiO2. States breathing better. +productive cough. OBJECTIVE: Vital Signs Period Temp Pulse Resp BP Sys/Richardson Pulse Ox Last 24 Hr 97.3 F-98.4 F 84-108 22-32 126-155/63-132 93-94 Intake & Output 03/15/19 03/16/19 03/17/19 03/18/19 23:59 23:59 23:59 23:59 Intake Total 1300 1600 50 Output Total 2500 1575 2500 Balance -1200 25 -2450 Weight 114.268 kg 116.165 kg Gen: mildly tachypneic at rest Heart: RRR Lung: scattered rales Abd: soft, nontender Ext: no edema CBC, BMP 03/18/19 05:15 03/18/19 05:15 Active Medications Albuterol/Ipratropium (Duoneb -) 1 amp NEB Q4H PRN PRN Reason: SHORTNESS OF BREATH Albuterol/Ipratropium (Duoneb -) 1 amp NEB RQID [facility] Last Admin: 03/18/19 12:10 Dose: 1 amp Aspirin (Ecotrin -) 81 mg PO DAILY [facility] Last Admin: 03/18/19 10:09 Dose: 81 mg Chlorhexidine Gluconate (Hibiclens For Decolonization -) 1 applic TP HS [facility] Last Admin: 03/17/19 22:16 Dose: 1 applic Finasteride (Proscar -) 5 mg PO DAILY [facility] Last Admin: 03/18/19 10:10 Dose: 5 mg Piperacillin Sod/Tazobactam (Sod 2.25 gm/ Dextrose) 50 mls @ 100 mls/hr IVPB Q8H-IV [facility]; Protocol Stop: 03/19/19 19:44 Last Admin: 03/18/19 10:07 Dose: 100 mls/hr Metoprolol Succinate (Toprol Xl -) 25 mg PO DAILY [facility] Last Admin: 03/18/19 10:10 Dose: 25 mg Multivitamins/Minerals (Theragran-M) 1 each PO DAILY [facility] Last Admin: 03/18/19 10:10 Dose: 1 each Mupirocin (Bactroban Ointment (For Decolonization) -) 1 applic NS BID [facility] Stop: 03/22/19 21:59 Last Admin: 03/18/19 10:28 Dose: 1 applic Pxlno-7-Nbnx Ethyl Esters (Lovaza -) 1 gm PO DAILY [facility] Last Admin: 03/18/19 10:10 Dose: 1 gm Tamsulosin HCl (Flomax -) 0.8 mg PO DAILY@0830 [facility] Last Admin: 03/18/19 10:10 Dose: 0.8 mg ASSESSMENT AND PLAN: Acute Hypoxic Respiratory Failure Pneumonia Acute on Chronic Diastolic Heart Failure Acute on Chronic Renal Failure h/o PPM BPH - continue antibiotics - f/u cultures - taper FiO2 to keep Spo2 >90% - short course of medrol - inhaled bronchodilators - monitor urine output, creatinine - DVT prophylaxis - continue ICU monitoring
--- NOTE | 2019-03-18 14:23 | PN ---
Physical Exam: SUBJECTIVE: Patient seen and examined OBJECTIVE: Vital Signs Period Temp Pulse Resp BP Sys/Richardson Pulse Ox Last 24 Hr 97.3 F-98.4 F 84-108 22-32 126-155/63-132 93-94 GENERAL: The patient is awake, alert, and fully oriented, in no acute distress. HEAD: Normal with no signs of trauma. EYES: PERRL, extraocular movements intact, sclera anicteric, conjunctiva clear. No ptosis. ENT: Ears normal, nares patent, oropharynx clear without exudates, moist mucous membranes. NECK: Trachea midline, full range of motion, supple. LUNGS: Breath sounds equal, clear to auscultation bilaterally, no wheezes, no crackles, no accessory muscle use. HEART: Regular rate and rhythm, S1, S2 without murmur, rub or gallop. ABDOMEN: Soft, nontender, nondistended, normoactive bowel sounds, no guarding, no rebound, no hepatosplenomegaly, no masses. EXTREMITIES: 2+ pulses, warm, well-perfused, no edema. NEUROLOGICAL: Cranial nerves II through XII grossly intact. Normal speech, gait not observed. PSYCH: Normal mood, normal affect. SKIN: Warm, dry, normal turgor, no rashes or lesions noted Laboratory Results - last 24 hr 03/17/19 03/17/19 03/17/19 18:30 18:30 18:30 WBC 32.0 H* RBC 4.92 Hgb 14.3 Hct 42.9 MCV 87.2 MCH 29.1 MCHC 33.4 RDW 15.9 Plt Count 390 MPV 8.1 Absolute Neuts (auto) 29.7 H Neutrophils % 92.7 H Neutrophils % (Manual) 85.0 H Band Neutrophils % 6.0 Lymphocytes % 2.6 L Lymphocytes % (Manual) 5.0 L Monocytes % 4.4 Monocytes % (Manual) 3 L Eosinophils % 0.0 Eosinophils % (Manual) Basophils % 0.3 Basophils % (Manual) Myelocytes % (Man) Promyelocytes % (Man) Blast Cells % (Manual) Nucleated RBC % 0 Metamyelocytes 1 Hypochromia Platelet Estimate Adequate Platelet Comment Polychromasia Poikilocytosis Anisocytosis Microcytosis Macrocytosis Spherocytes Target Cells Tear Drop Cells Alexi Cells Anticoagulation Therapy No Result Required. Puncture Site Right radial ABG pH 7.39 ABG pCO2 at Pt Temp 32.5 L ABG pO2 at Pt Temp 65.7 L ABG HCO3 19.4 L ABG O2 Sat (Measured) 91.6 L ABG O2 Content 20.0 ABG Base Excess -4.0 L Harshal Test Positive O2 Delivery Device No Result Required. Oxygen Flow Rate Yes Vent Mode No Result Required. Vent Rate No Result Required. Mechanical Rate No Result Required. Pressure Support Vent No Result Required. Sodium 138 Potassium 4.0 Chloride 103 Carbon Dioxide 23 Anion Gap 11 BUN 113.3 H* Creatinine 3.4 H Est GFR (CKD-EPI)AfAm 18.16 Est GFR (CKD-EPI)NonAf 15.67 Random Glucose 89 Calcium 9.3 Phosphorus 4.4 Magnesium 2.7 H Total Bilirubin 0.5 AST 40 H ALT 40 Alkaline Phosphatase 144 H Total Protein 5.9 L Albumin 2.4 L 03/18/19 03/18/19 05:15 05:15 WBC 27.5 H RBC 4.76 Hgb 14.1 Hct 42.5 MCV 89.3 MCH 29.5 MCHC 33.0 RDW 16.8 H Plt Count 392 MPV 8.4 Absolute Neuts (auto) 24.6 H Neutrophils % 89.7 H Neutrophils % (Manual) 83.0 H Band Neutrophils % 4.0 Lymphocytes % 4.6 L D Lymphocytes % (Manual) 7.0 L D Monocytes % 4.6 Monocytes % (Manual) 2 L Eosinophils % 0.7 D Eosinophils % (Manual) 0.0 Basophils % 0.4 Basophils % (Manual) 0.0 Myelocytes % (Man) 0 Promyelocytes % (Man) 0 Blast Cells % (Manual) 0 Nucleated RBC % 2 H Metamyelocytes 1 Hypochromia 0 Platelet Estimate Normal Platelet Comment Present Polychromasia 1+ Poikilocytosis 1+ Anisocytosis 1+ Microcytosis 1+ Macrocytosis 0 Spherocytes 1+ Target Cells 1+ Tear Drop Cells 1+ [place] Cells 1+ Anticoagulation Therapy Puncture Site ABG pH ABG pCO2 at Pt Temp ABG pO2 at Pt Temp ABG HCO3 ABG O2 Sat (Measured) ABG O2 Content ABG Base Excess Harshal Test O2 Delivery Device Oxygen Flow Rate Vent Mode Vent Rate Mechanical Rate Pressure Support Vent Sodium 142 Potassium 4.2 Chloride 108 H Carbon Dioxide 19 L Anion Gap 16 BUN 106.8 H* Creatinine 3.3 H Est GFR (CKD-EPI)AfAm 18.83 Est GFR (CKD-EPI)NonAf 16.25 Random Glucose 77 Calcium 9.0 Phosphorus Magnesium Total Bilirubin 0.6 AST 44 H ALT 39 Alkaline Phosphatase 137 H Total Protein 5.4 L Albumin 2.2 L Active Medications Generic Name Dose Route Start Last Admin Trade Name Freq PRN Reason Stop Dose Admin Albuterol/Ipratropium 1 amp 03/17/19 18:08 Duoneb - NEB Q4H PRN SHORTNESS OF BREATH Albuterol/Ipratropium 1 amp 03/17/19 20:00 03/18/19 12:10 Duoneb - NEB 1 amp RQID MANUEL Administration Aspirin 81 mg 03/18/19 10:00 03/18/19 10:09 Ecotrin - PO 81 mg DAILY MANUEL Administration Chlorhexidine Gluconate 1 applic 03/17/19 22:00 03/17/19 22:16 Hibiclens For Decolonization - TP 1 applic HS MANUEL Administration Finasteride 5 mg 03/18/19 10:00 03/18/19 10:10 Proscar - PO 5 mg DAILY MANUEL Administration Piperacillin Sod/Tazobactam 50 mls @ 100 mls/hr 03/17/19 19:45 03/18/19 10:07 Sod 2.25 gm/ Dextrose IVPB 03/19/19 19:44 100 mls/hr Q8H-IV MANUEL Administration Protocol Metoprolol Succinate 25 mg 03/18/19 10:00 03/18/19 10:10 Toprol Xl - PO 25 mg DAILY MANUEL Administration Multivitamins/Minerals 1 each 03/18/19 10:00 03/18/19 10:10 Theragran-M PO 1 each DAILY MANUEL Administration Mupirocin 1 applic 03/17/19 22:00 03/18/19 10:28 Bactroban Ointment (For Decolonization) - NS 03/22/19 21:59 1 applic BID MANUEL Administration Jipju-1-Naqb Ethyl Esters 1 gm 03/18/19 10:00 03/18/19 10:10 Lovaza - PO 1 gm DAILY MANUEL Administration Tamsulosin HCl 0.8 mg 03/18/19 08:30 03/18/19 10:10 Flomax - PO 0.8 mg DAILY@0830 MANUEL Administration ASSESSMENT/PLAN:
--- NOTE | 2019-03-18 14:43 | PN ---
Physical Exam: SUBJECTIVE: Patient seen and examined in the icu. Tells me he still feels short of breath but feels slightly better than yesterday. Denies chest pain. feels constipated. 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 Initially was being treated at [facility] for shortness of breath, cough and wheezing and transferred to [facility] on 03/17/2019 for acute respiratory failure requiring high flow oxygen. imaging: chest ct 03/17/2019 (non contrast): 1. bilateral lower lobe, right upper and middle lobe air space disease with consolidation consistent with pneumonia (2) no pneumothorax or pleural effusion (3) borderline over distention of the gallbaldder with a small stone without wall thickening. Vital Signs Period Temp Pulse Resp BP Sys/Richardson Pulse Ox Last 24 Hr 97.3 F-98.4 F 84-108 22-32 126-155/63-132 93-94 GENERAL: The patient is awake, alert, and fully oriented, in moderate respiratory distress on high flow 02, tachypnea/conversational dyspnea. sitting up in bed. HEAD: Normal with no signs of trauma. EYES: PERRL, extraocular movements intact, sclera anicteric, conjunctiva clear. No ptosis. ENT: Ears normal, nares patent, oropharynx clear without exudates, dry mucous membranes. NECK: Trachea midline, full range of motion, supple. LUNGS: anterior lungs diminished/clear mostly. posteriorly with scattered rhonchi HEART: tachycardia on monitor, regular rate ABDOMEN: Soft, nontender, distended, normoactive bowel sounds, no guarding EXTREMITIES: +1 bilateral lowe ext edema. NEUROLOGICAL:Normal speech, gait not observed. PSYCH: Normal mood, normal affect. SKIN: Warm, dry, normal turgor, no rashes or lesions noted Laboratory Results - last 24 hr 03/17/19 03/17/19 03/17/19 18:30 18:30 18:30 WBC 32.0 H* RBC 4.92 Hgb 14.3 Hct 42.9 MCV 87.2 MCH 29.1 MCHC 33.4 RDW 15.9 Plt Count 390 MPV 8.1 Absolute Neuts (auto) 29.7 H Neutrophils % 92.7 H Neutrophils % (Manual) 85.0 H Band Neutrophils % 6.0 Lymphocytes % 2.6 L Lymphocytes % (Manual) 5.0 L Monocytes % 4.4 Monocytes % (Manual) 3 L Eosinophils % 0.0 Eosinophils % (Manual) Basophils % 0.3 Basophils % (Manual) Myelocytes % (Man) Promyelocytes % (Man) Blast Cells % (Manual) Nucleated RBC % 0 Metamyelocytes 1 Hypochromia Platelet Estimate Adequate Platelet Comment Polychromasia Poikilocytosis Anisocytosis Microcytosis Macrocytosis Spherocytes Target Cells Tear Drop Cells [place] Cells Anticoagulation Therapy No Result Required. Puncture Site Right radial ABG pH 7.39 ABG pCO2 at Pt Temp 32.5 L ABG pO2 at Pt Temp 65.7 L ABG HCO3 19.4 L ABG O2 Sat (Measured) 91.6 L ABG O2 Content 20.0 ABG Base Excess -4.0 L Harshal Test Positive O2 Delivery Device No Result Required. Oxygen Flow Rate Yes Vent Mode No Result Required. Vent Rate No Result Required. Mechanical Rate No Result Required. Pressure Support Vent No Result Required. Sodium 138 Potassium 4.0 Chloride 103 Carbon Dioxide 23 Anion Gap 11 BUN 113.3 H* Creatinine 3.4 H Est GFR (CKD-EPI)AfAm 18.16 Est GFR (CKD-EPI)NonAf 15.67 Random Glucose 89 Calcium 9.3 Phosphorus 4.4 Magnesium 2.7 H Total Bilirubin 0.5 AST 40 H ALT 40 Alkaline Phosphatase 144 H Total Protein 5.9 L Albumin 2.4 L 03/18/19 03/18/19 05:15 05:15 WBC 27.5 H RBC 4.76 Hgb 14.1 Hct 42.5 MCV 89.3 MCH 29.5 MCHC 33.0 RDW 16.8 H Plt Count 392 MPV 8.4 Absolute Neuts (auto) 24.6 H Neutrophils % 89.7 H Neutrophils % (Manual) 83.0 H Band Neutrophils % 4.0 Lymphocytes % 4.6 L D Lymphocytes % (Manual) 7.0 L D Monocytes % 4.6 Monocytes % (Manual) 2 L Eosinophils % 0.7 D Eosinophils % (Manual) 0.0 Basophils % 0.4 Basophils % (Manual) 0.0 Myelocytes % (Man) 0 Promyelocytes % (Man) 0 Blast Cells % (Manual) 0 Nucleated RBC % 2 H Metamyelocytes 1 Hypochromia 0 Platelet Estimate Normal Platelet Comment Present Polychromasia 1+ Poikilocytosis 1+ Anisocytosis 1+ Microcytosis 1+ Macrocytosis 0 Spherocytes 1+ Target Cells 1+ Tear Drop Cells 1+ Alexi Cells 1+ Anticoagulation Therapy Puncture Site ABG pH ABG pCO2 at Pt Temp ABG pO2 at Pt Temp ABG HCO3 ABG O2 Sat (Measured) ABG O2 Content ABG Base Excess Harshal Test O2 Delivery Device Oxygen Flow Rate Vent Mode Vent Rate Mechanical Rate Pressure Support Vent Sodium 142 Potassium 4.2 Chloride 108 H Carbon Dioxide 19 L Anion Gap 16 BUN 106.8 H* Creatinine 3.3 H Est GFR (CKD-EPI)AfAm 18.83 Est GFR (CKD-EPI)NonAf 16.25 Random Glucose 77 Calcium 9.0 Phosphorus Magnesium Total Bilirubin 0.6 AST 44 H ALT 39 Alkaline Phosphatase 137 H Total Protein 5.4 L Albumin 2.2 L Active Medications Generic Name Dose Route Start Last Admin Trade Name Freq PRN Reason Stop Dose Admin Albuterol/Ipratropium 1 amp 03/17/19 18:08 Duoneb - NEB Q4H PRN SHORTNESS OF BREATH Albuterol/Ipratropium 1 amp 03/17/19 20:00 03/18/19 12:10 Duoneb - NEB 1 amp RQID MANUEL Administration Aspirin 81 mg 03/18/19 10:00 03/18/19 10:09 Ecotrin - PO 81 mg DAILY MANUEL Administration Chlorhexidine Gluconate 1 applic 03/17/19 22:00 03/17/19 22:16 Hibiclens For Decolonization - TP 1 applic HS MANUEL Administration Finasteride 5 mg 03/18/19 10:00 03/18/19 10:10 Proscar - PO 5 mg DAILY MANUEL Administration Piperacillin Sod/Tazobactam 50 mls @ 100 mls/hr 03/17/19 19:45 03/18/19 10:07 Sod 2.25 gm/ Dextrose IVPB 03/19/19 19:44 100 mls/hr Q8H-IV MANUEL Administration Protocol Metoprolol Succinate 25 mg 03/18/19 10:00 03/18/19 10:10 Toprol Xl - PO 25 mg DAILY MANUEL Administration Multivitamins/Minerals 1 each 03/18/19 10:00 03/18/19 10:10 Theragran-M PO 1 each DAILY MANUEL Administration Mupirocin 1 applic 03/17/19 22:00 03/18/19 10:28 Bactroban Ointment (For Decolonization) - NS 03/22/19 21:59 1 applic BID MAUNEL Administration Lgruw-9-Btov Ethyl Esters 1 gm 03/18/19 10:00 03/18/19 10:10 Lovaza - PO 1 gm DAILY MANUEL Administration Tamsulosin HCl 0.8 mg 03/18/19 08:30 03/18/19 10:10 Flomax - PO 0.8 mg DAILY@0830 MANUEL Administration ASSESSMENT/PLAN: Problem List - Problems (1) Pneumonia Assessment/Plan: per chest ct: bilateral lower lobe and right upper and mid lobe pneumonia. airway support with high flow oxygen to maintain sats above 92%. on duonebs. on zosyn per ID Code(s): J18.9 - PNEUMONIA, UNSPECIFIED ORGANISM Qualifiers: Pneumonia type: due to unspecified organism Laterality: right Lung location: unspecified part of lung Qualified Code(s): J18.9 - Pneumonia, unspecified organism (2) Acute respiratory failure Assessment/Plan: on high flow oxygen and continuous pulse ox monitoring awake and alert with conversational dyspnea pulmonary following, notes reviewed and appreciated. abg reviewed Code(s): J96.00 - ACUTE RESPIRATORY FAILURE, UNSP W HYPOXIA OR HYPERCAPNIA (3) Shortness of breath Assessment/Plan: bilateral pneumonia on ct imaging. on high flow oxygen with continuous pulse ox monitoring Code(s): R06.02 - SHORTNESS OF BREATH (4) VARSHA (acute kidney injury) Code(s): N17.9 - ACUTE KIDNEY FAILURE, UNSPECIFIED (5) BPH (benign prostatic hyperplasia) Assessment/Plan: currently with issa cathether with hazy urine Code(s): N40.0 - BENIGN PROSTATIC HYPERPLASIA WITHOUT LOWER URINRY TRACT SYMP (6) Elevated serum creatinine Assessment/Plan: per renal, hold lasix daily cmp Code(s): R79.89 - OTHER SPECIFIED ABNORMAL FINDINGS OF BLOOD CHEMISTRY (7) Elevated troponin Assessment/Plan: no chest pain, cardiology following Code(s): R79.89 - OTHER SPECIFIED ABNORMAL FINDINGS OF BLOOD CHEMISTRY (8) HTN (hypertension) Code(s): I10 - ESSENTIAL (PRIMARY) HYPERTENSION (9) Hypoxia Code(s): R09.02 - HYPOXEMIA (10) Status post biventricular pacemaker Assessment/Plan: placed in 2019, well healed surgical scar placed for high grade av block Code(s): Z95.0 - PRESENCE OF CARDIAC PACEMAKER (11) Acute on chronic diastolic (congestive) heart failure Assessment/Plan: monitor intake and output with daily weights lasix per renal Code(s): I50.33 - ACUTE ON CHRONIC DIASTOLIC (CONGESTIVE) HEART FAILURE (12) Requires aspiration precautions Assessment/Plan: maintain aspiration precautions until respiratory status improves Code(s): Z91.89 - OTH PERSONAL RISK FACTORS, NOT ELSEWHERE CLASSIFIED (13) DVT prophylaxis Assessment/Plan: heparin bid Code(s): Z29.9 - ENCOUNTER FOR PROPHYLACTIC MEASURES, UNSPECIFIED (14) Prophylactic measure Assessment/Plan: fen clear liquid diet monitor electrolytes daily advance diet as tolerated add supplements aspiration precautions full code Code(s): Z29.9 - ENCOUNTER FOR PROPHYLACTIC MEASURES, UNSPECIFIED Visit type - Emergency Visit Emergency Visit: Yes ED Registration Date: 03/15/19 Care time: The patient presented to the Emergency Department on the above date and was hospitalized for further evaluation of their emergent condition. - New Patient This patient is new to me today: Yes Date on this admission: 03/18/19 - Critical Care Critical Care patient: Yes Total Critical Care Time (in minutes): 40 Critical Care Statement: The care of this patient involved high complexity decision making to prevent further life threatening deterioration of the patient 's condition and/or to evaluate & treat vital organ system(s) failure or risk of failure.
--- NOTE | 2019-03-18 15:13 | PN ---
Physical Exam: SUBJECTIVE: Patient seen and examined. Pt continue to experience SOB. OBJECTIVE: Vital Signs Period Temp Pulse Resp BP Sys/Richardson Pulse Ox Last 24 Hr 97.3 F-98.4 F 84-108 22-32 126-155/63-132 93-94 GENERAL: The patient is awake, alert, and fully oriented, in no acute distress. HEAD: Normal with no signs of trauma. EYES: PERRL, extraocular movements intact, sclera anicteric, conjunctiva clear. No ptosis. ENT: oropharynx clear without exudates, moist mucous membranes. LUNGS: scattered rales, no wheezes, no accessory muscle use. HEART: Regular rate and rhythm, S1, S2 without murmur, rub or gallop. ABDOMEN: Soft, nontender, nondistended, normoactive bowel sounds, no guarding, no rebound, no hepatosplenomegaly, no masses. EXTREMITIES: 2+ pulses, warm, well-perfused, no edema. PSYCH: Normal mood, normal affect. SKIN: Warm, dry, normal turgor, no rashes or lesions noted Laboratory Results - last 24 hr 03/17/19 03/17/19 03/17/19 18:30 18:30 18:30 WBC 32.0 H* RBC 4.92 Hgb 14.3 Hct 42.9 MCV 87.2 MCH 29.1 MCHC 33.4 RDW 15.9 Plt Count 390 MPV 8.1 Absolute Neuts (auto) 29.7 H Neutrophils % 92.7 H Neutrophils % (Manual) 85.0 H Band Neutrophils % 6.0 Lymphocytes % 2.6 L Lymphocytes % (Manual) 5.0 L Monocytes % 4.4 Monocytes % (Manual) 3 L Eosinophils % 0.0 Eosinophils % (Manual) Basophils % 0.3 Basophils % (Manual) Myelocytes % (Man) Promyelocytes % (Man) Blast Cells % (Manual) Nucleated RBC % 0 Metamyelocytes 1 Hypochromia Platelet Estimate Adequate Platelet Comment Polychromasia Poikilocytosis Anisocytosis Microcytosis Macrocytosis Spherocytes Target Cells Tear Drop Cells Alexi Cells Anticoagulation Therapy No Result Required. Puncture Site Right radial ABG pH 7.39 ABG pCO2 at Pt Temp 32.5 L ABG pO2 at Pt Temp 65.7 L ABG HCO3 19.4 L ABG O2 Sat (Measured) 91.6 L ABG O2 Content 20.0 ABG Base Excess -4.0 L Harshal Test Positive O2 Delivery Device No Result Required. Oxygen Flow Rate Yes Vent Mode No Result Required. Vent Rate No Result Required. Mechanical Rate No Result Required. Pressure Support Vent No Result Required. Sodium 138 Potassium 4.0 Chloride 103 Carbon Dioxide 23 Anion Gap 11 BUN 113.3 H* Creatinine 3.4 H Est GFR (CKD-EPI)AfAm 18.16 Est GFR (CKD-EPI)NonAf 15.67 Random Glucose 89 Calcium 9.3 Phosphorus 4.4 Magnesium 2.7 H Total Bilirubin 0.5 AST 40 H ALT 40 Alkaline Phosphatase 144 H Total Protein 5.9 L Albumin 2.4 L 03/18/19 03/18/19 05:15 05:15 WBC 27.5 H RBC 4.76 Hgb 14.1 Hct 42.5 MCV 89.3 MCH 29.5 MCHC 33.0 RDW 16.8 H Plt Count 392 MPV 8.4 Absolute Neuts (auto) 24.6 H Neutrophils % 89.7 H Neutrophils % (Manual) 83.0 H Band Neutrophils % 4.0 Lymphocytes % 4.6 L D Lymphocytes % (Manual) 7.0 L D Monocytes % 4.6 Monocytes % (Manual) 2 L Eosinophils % 0.7 D Eosinophils % (Manual) 0.0 Basophils % 0.4 Basophils % (Manual) 0.0 Myelocytes % (Man) 0 Promyelocytes % (Man) 0 Blast Cells % (Manual) 0 Nucleated RBC % 2 H Metamyelocytes 1 Hypochromia 0 Platelet Estimate Normal Platelet Comment Present Polychromasia 1+ Poikilocytosis 1+ Anisocytosis 1+ Microcytosis 1+ Macrocytosis 0 Spherocytes 1+ Target Cells 1+ Tear Drop Cells 1+ Alexi Cells 1+ Anticoagulation Therapy Puncture Site ABG pH ABG pCO2 at Pt Temp ABG pO2 at Pt Temp ABG HCO3 ABG O2 Sat (Measured) ABG O2 Content ABG Base Excess Harshal Test O2 Delivery Device Oxygen Flow Rate Vent Mode Vent Rate Mechanical Rate Pressure Support Vent Sodium 142 Potassium 4.2 Chloride 108 H Carbon Dioxide 19 L Anion Gap 16 BUN 106.8 H* Creatinine 3.3 H Est GFR (CKD-EPI)AfAm 18.83 Est GFR (CKD-EPI)NonAf 16.25 Random Glucose 77 Calcium 9.0 Phosphorus Magnesium Total Bilirubin 0.6 AST 44 H ALT 39 Alkaline Phosphatase 137 H Total Protein 5.4 L Albumin 2.2 L Active Medications Generic Name Dose Route Start Last Admin Trade Name Freq PRN Reason Stop Dose Admin Albuterol/Ipratropium 1 amp 03/17/19 18:08 Duoneb - NEB Q4H PRN SHORTNESS OF BREATH Albuterol/Ipratropium 1 amp 03/17/19 20:00 03/18/19 12:10 Duoneb - NEB 1 amp RQID MANUEL Administration Aspirin 81 mg 03/18/19 10:00 03/18/19 10:09 Ecotrin - PO 81 mg DAILY MANUEL Administration Chlorhexidine Gluconate 1 applic 03/17/19 22:00 03/17/19 22:16 Hibiclens For Decolonization - TP 1 applic HS MANUEL Administration Docusate Sodium 100 mg 03/18/19 22:00 Colace - PO TID MANUEL Finasteride 5 mg 03/18/19 10:00 03/18/19 10:10 Proscar - PO 5 mg DAILY MANUEL Administration Heparin Sodium (Porcine) 5,000 unit 03/18/19 22:00 Heparin - SQ BID MANUEL Piperacillin Sod/Tazobactam 50 mls @ 100 mls/hr 03/17/19 19:45 03/18/19 10:07 Sod 2.25 gm/ Dextrose IVPB 03/19/19 19:44 100 mls/hr Q8H-IV MANUEL Administration Protocol Methylprednisolone Sodium Succinate 40 mg 03/18/19 15:15 Solu-Medrol - IVPUSH Q8H-IV MANUEL Metoprolol Succinate 25 mg 03/18/19 10:00 03/18/19 10:10 Toprol Xl - PO 25 mg DAILY MANUEL Administration Multivitamins/Minerals 1 each 03/18/19 10:00 03/18/19 10:10 Theragran-M PO 1 each DAILY MANUEL Administration Mupirocin 1 applic 03/17/19 22:00 03/18/19 10:28 Bactroban Ointment (For Decolonization) - NS 03/22/19 21:59 1 applic BID MANUEL Administration Ermsq-7-Ggga Ethyl Esters 1 gm 03/18/19 10:00 03/18/19 10:10 Lovaza - PO 1 gm DAILY MANUEL Administration Senna 2 tab 03/18/19 22:00 Senna - PO HS PRN CONSTIPATION Tamsulosin HCl 0.8 mg 03/18/19 08:30 03/18/19 10:10 Flomax - PO 0.8 mg DAILY@0830 [facility] Administration ASSESSMENT/PLAN: 83 y.o. M PMH HTN, heart block s/p pacemaker placement 01/2019, BPH, morbid obesity presenting for sepsis 2/2 pneumonia. #INSIDE POLISHER -AOx3 -No acute issues #CV -Hx HTN on metoprolol 25mg daily, hctz 12.5mg PO daily, losartan/hctz at home -NSVT's: Keep K+ at 4, Mg2+ 2. -C/w Metoprolol -Echo: LVEF 65%. Mod concentric LVH. Reduced RV systolic function. -trops wnl -s/p 120mg IV lasix today w/ 1.5L output; issa in place -monitor Is & Os, daily weights -f/u records with outpatient caridologist Dr. Jose Hardy-- had recent stress test prior to pacemaker placement -Dr. stapleton following -Chest CT w/o e/o pleural effusion #Pulm -Continue oxygen therapy on high flow -CXR shows R infiltrates - CT chest with e/o PNA -F/u LE duplex no dvt -continue duonebs prn -40mg q8H solumedrol -F/U respiratory serology #Renal -Hx BPH -VARSHA; latest Cr 3.4 -- f/u repeat. baseline ~1.5 -s/p lasix -renal U/S" : simple cyst 1.3 cm. no hydronephrosis -holding ARB -Dr. hand RECS: cautious with Lasix -Issa in place -flomax, finasteride-- home meds -f/u renal vasculitis immunology/serology #ID -empiric vanc/zosyn RENAL DOSED; s/p vanc/zosyn/zithromax dose in ED -f/u cultures -dr. caicedo following #FENLTD -no ivf -trend lytes replete prn -clear diet -peirpheral lines -issa placed PPX: hep subQ Dispo: cont ICU care Visit type - Emergency Visit Emergency Visit: Yes ED Registration Date: 03/15/19 Care time: The patient presented to the Emergency Department on the above date and was hospitalized for further evaluation of their emergent condition. - New Patient This patient is new to me today: Yes Date on this admission: 03/18/19 - Critical Care Critical Care patient: Yes Total Critical Care Time (in minutes): 35 Critical Care Statement: The care of this patient involved high complexity decision making to prevent further life threatening deterioration of the patient's condition and/or to evaluate & treat vital organ system(s) failure or risk of failure. ATTENDING PHYSICIAN STATEMENT I saw and evaluated the patient. I reviewed the resident's note and discussed the case with the resident. I agree with the resident's findings and plan as documented. SUBJECTIVE: OBJECTIVE: ASSESSMENT AND PLAN:
[2019-03-18] MEDS: methylPREDNISolone NA SUCC 40 MG/1 ML VIAL IVPUSH SCH ×2 (18:14→21:40)
[2019-03-18] MEDS: HEPARIN NA (PORCINE) 5,000 UNITS/ML 1ML VIAL SQ SCH (21:39)
[2019-03-18] MEDS: DOCUSATE SODIUM 100 MG CAPSULE (FP) PO SCH (21:39)
[2019-03-18] MEDS: MELATONIN 5 MG TABLETS PO PRN (21:39)
[2019-03-18] MEDS: CHLORHEXIDINE GLUCONATE 4% CLEANSER FOR DECOLONIZATION TP SCH (21:48)
[2019-03-18] MEDS ORDERED: SENNOSIDES 8.6MG TABLET (FP) PO PRN (22:00)
[2019-03-19] MEDS ORDERED: PIPERACILLIN/TAZOBACTAM 2.25 GM VIAL IVPB ONE ×3 (01:03→17:41)
[2019-03-19] MEDS ORDERED: DEXTROSE 5%-WATER - 50 ML IVPB ONE ×3 (01:04→17:42)
[2019-03-19] MEDS: methylPREDNISolone NA SUCC 40 MG/1 ML VIAL IVPUSH SCH ×3 (01:14→18:34)
[2019-03-19] MEDS: PIPERACILLIN/TAZOB 2.25 GM 2.25 GM in DEXTROSE 5%-WATER - 50 ML IVPB SCH ×3 (01:14→18:34)
[2019-03-19] MEDS: DOCUSATE SODIUM 100 MG CAPSULE (FP) PO SCH ×3 (06:35→22:35)
[2019-03-19 06:56] LABS: BASO % 0.1 % (0-2.0); EOS % 1.7 % (0-4.5); HEMATOCRIT 42.7 % (35.4-49); HEMOGLOBIN 14.4 GM/dL (11.7-16.9); LYMPH % 3.4 % (8-40); MCH 29.4 pg (25.7-33.7); MCHC 33.6 g/dl (32.0-35.9); MEAN CELL VOLUME 87.4 fl (80-96); MEAN PLT VOLUME 8.3 fl (7.5-11.1); MONO % 1.6 % (3.8-10.2); NEUT % 93.2 % (42.8-82.8); PLATELET COUNT 380 K/MM3 (134-434); RBC 4.89 M/mm3 (4.00-5.60); RDW 15.7 % (11.9-15.9); WHITE BLOOD COUNT 20.8 K/mm3 (4.0-10.0)
[2019-03-19 08:12] LABS: ALBUMIN 2.3 g/dl (3.4-5.0); BLOOD UREA NITROGEN 90.4 mg/dL (7-18); CALCIUM 9.1 mg/dL (8.5-10.1); CREATININE 2.3 mg/dL (0.55-1.3); MAGNESIUM 2.7 mg/dL (1.8-2.4); POTASSIUM 4.5 mmol/L (3.5-5.1); TOT PROT 5.6 g/dl (6.4-8.2)
[2019-03-19] MEDS: ALBUTEROL SO4 2.5/IPRATROPIUM 0.5 INH SOL 3 ML VIAL.NEB. NEB SCH ×4 (09:04→20:51)
[2019-03-19] MEDS: TAMSULOSIN HCL 0.4 MG CAP PO SCH (09:18)
[2019-03-19] MEDS: ASPIRIN COATED 81 MG TABLET.EC PO SCH (09:18)
[2019-03-19] MEDS: metoPROLOL SUCCINATE 25 MG TAB.SR.24H (FP) PO SCH (09:18)
[2019-03-19] MEDS: HEPARIN NA (PORCINE) 5,000 UNITS/ML 1ML VIAL SQ SCH ×2 (09:18→22:36)
[2019-03-19] MEDS: MULTIVITAMINS THER W-MINERALS COMBO TABLET (FP) PO SCH (09:18)
[2019-03-19] MEDS: FINASTERIDE 5 MG TABLET (FP) PO SCH (09:18)
[2019-03-19] MEDS: OMEGA-3 ACID ETHYL ESTERS (FATTY-ACIDS) 1 GM CAPSULE (FP) PO SCH (09:18)
[2019-03-19] MEDS: MUPIROCIN 2% TOPICAL OINTMENT FOR DECOLONIZATION NS SCH ×2 (09:19→22:51)
[2019-03-19 10:46] LABS: ANISOCYTOSIS 0; MACROCYTOSIS 0; PLATELET ESTIMATE NORMAL
--- NOTE | 2019-03-19 11:01 | PN ---
Progress Note (short form) - Note Progress Note: s: no chest pain, palps, dizziness. cough stable, sob improving Current Medications Generic Name Dose Route Start Last Admin Trade Name Freq PRN Reason Stop Dose Admin Albuterol/Ipratropium 1 amp 03/17/19 18:08 Duoneb - NEB Q4H PRN SHORTNESS OF BREATH Albuterol/Ipratropium 1 amp 03/17/19 20:00 03/19/19 09:04 Duoneb - NEB 1 amp RQID MANUEL Administration Aspirin 81 mg 03/18/19 10:00 03/19/19 09:18 Ecotrin - PO 81 mg DAILY MANUEL Administration Chlorhexidine Gluconate 1 applic 03/17/19 22:00 03/18/19 21:48 Hibiclens For Decolonization - TP 1 applic HS MANUEL Administration Docusate Sodium 100 mg 03/18/19 22:00 03/19/19 06:35 Colace - PO 100 mg TID MANUEL Administration Finasteride 5 mg 03/18/19 10:00 03/19/19 09:18 Proscar - PO 5 mg DAILY MANUEL Administration Heparin Sodium (Porcine) 5,000 unit 03/18/19 22:00 03/19/19 09:18 Heparin - SQ 5,000 unit BID MANUEL Administration Piperacillin Sod/Tazobactam 50 mls @ 100 mls/hr 03/17/19 19:45 03/19/19 09:19 Sod 2.25 gm/ Dextrose IVPB 03/19/19 19:44 100 mls/hr Q8H-IV MANUEL Administration Protocol Melatonin 5 mg 03/18/19 21:31 03/18/19 21:39 Melatonin PO 5 mg HS PRN Administration INSOMNIA Methylprednisolone Sodium Succinate 40 mg 03/18/19 15:15 03/19/19 09:18 Solu-Medrol - IVPUSH 40 mg Q8H-IV MANUEL Administration Metoprolol Succinate 25 mg 03/18/19 10:00 03/19/19 09:18 Toprol Xl - PO 25 mg DAILY MANUEL Administration Multivitamins/Minerals 1 each 03/18/19 10:00 03/19/19 09:18 Theragran-M PO 1 each DAILY [facility]UEL Administration Mupirocin 1 applic 03/17/19 22:00 03/19/19 09:19 Bactroban Ointment (For Decolonization) - NS 03/22/19 21:59 1 applic BID MANUEL Administration Oiuwd-3-Lrby Ethyl Esters 1 gm 03/18/19 10:00 03/19/19 09:18 Lovaza - PO 1 gm DAILY MANUEL Administration Senna 2 tab 03/18/19 22:00 Senna - PO HS PRN CONSTIPATION Tamsulosin HCl 0.8 mg 03/18/19 08:30 03/19/19 09:18 Flomax - PO 0.8 mg DAILY@0830 MANUEL Administration Vital Signs Period Temp Pulse Resp BP Sys/Richardson Pulse Ox Last 24 Hr 97.2 F-98.6 F 83-96 21-31 111-155/73-132 93 Constitutional: Yes: No Distress Neck: Yes: Supple Respiratory: Yes: Other (rales right base, scattered rhonchi) Gastrointestinal: Yes: Soft (NT) Cardiovascular: Yes: Pulse Irregular JVD: No Carotid Bruit: No Heart Sounds: Yes: S1, S2 Edema: trace le edema bl Neurological: Yes: Alert, Oriented CBC, BMP 03/19/19 05:20 03/19/19 05:20 NSR 1st degree AVB, RBBB, PVCs TELE: SR, intermittent V pacing, PVCs Echo: Other (Normal EF, mild to moderately dilated RV/ Mild to moderately reduced RVEF) Ejection Fraction %: LVEF > or = 40 % Imaging - Results X-ray: Image Reviewed EKG: Image Reviewed Assessment/Plan IMP: 1. Acute hypoxemic respiratory failure, requiring 50% FIO2 2. Probable RML/RLL PNA 3. Acute on chronic diastolic CHF, mild exacerbation 4. Acute on chronic renal failure 5. VPCS/ NSVT 6. 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 RV dysfunction (acute vs chronic?) REC: 1. monitoring in ICU 2. Chest CT c/w PNA, manage per primary 3. F/u cultures/ abx and steroids as per primary medical and critical care team. 4. appears euvolemic, holding lasix 5. Daily weights 6. For NSVT: Keep K+ at 4, Mg2+ 2/Continue Metoprolol/ LVEF normal. Pt reports recent nuclear stress prior to PPM that was "ok"- will need to obtain reports from Dr. Jose Hardy (outpatient electronics detail draftsperson). 7. RV dysfx seems likely due to acute hypoxia secondary to PNA
--- NOTE | 2019-03-19 11:57 | PN ---
Teaching Attending Note Name of Resident: Dahlia Schaeffer ATTENDING PHYSICIAN STATEMENT I saw and evaluated the patient. I reviewed the resident's note and discussed the case with the resident. I agree with the resident's findings and plan as documented. SUBJECTIVE: Pt seen and examined in the ICU. Remains on HFOT 60% FiO2. States breathing better. +cough with thick sputum. No fevers. OBJECTIVE: Vital Signs Period Temp Pulse Resp BP Sys/Richadrson Pulse Ox Last 24 Hr 97.2 F-98.6 F 83-96 21-31 111-155/73-132 93-96 Intake & Output 03/16/19 03/17/19 03/18/19 03/19/19 23:59 23:59 23:59 23:59 Intake Total 1300 1600 50 50 Output Total 2500 1575 3900 1300 Balance -1200 25 -3850 -1250 Weight 116.165 kg 113.58 kg Gen: less tachypneic on HFOT Heart: RRR Lung: scattered basilar rales Abd: soft, nontender Ext: no edema CBC, BMP 03/19/19 05:20 03/19/19 05:20 Active Medications Albuterol/Ipratropium (Duoneb -) 1 amp NEB Q4H PRN PRN Reason: SHORTNESS OF BREATH Albuterol/Ipratropium (Duoneb -) 1 amp NEB RQID [facility] Last Admin: 03/19/19 11:45 Dose: 1 amp Aspirin (Ecotrin -) 81 mg PO DAILY [facility] Last Admin: 03/19/19 09:18 Dose: 81 mg Chlorhexidine Gluconate (Hibiclens For Decolonization -) 1 applic TP HS [facility] Last Admin: 03/18/19 21:48 Dose: 1 applic Docusate Sodium (Colace -) 100 mg PO TID [facility] Last Admin: 03/19/19 06:35 Dose: 100 mg Finasteride (Proscar -) 5 mg PO DAILY [facility] Last Admin: 03/19/19 09:18 Dose: 5 mg Heparin Sodium (Porcine) (Heparin -) 5,000 unit SQ BID [facility] Last Admin: 03/19/19 09:18 Dose: 5,000 unit Piperacillin Sod/Tazobactam (Sod 2.25 gm/ Dextrose) 50 mls @ 100 mls/hr IVPB Q8H-IV MANUEL; Protocol Stop: 03/19/19 19:44 Last Admin: 03/19/19 09:19 Dose: 100 mls/hr Melatonin (Melatonin) 5 mg PO HS PRN PRN Reason: INSOMNIA Last Admin: 03/18/19 21:39 Dose: 5 mg Methylprednisolone Sodium Succinate (Solu-Medrol -) 40 mg IVPUSH Q8H-IV [facility] Last Admin: 03/19/19 09:18 Dose: 40 mg Metoprolol Succinate (Toprol Xl -) 25 mg PO DAILY [facility] Last Admin: 03/19/19 09:18 Dose: 25 mg Multivitamins/Minerals (Theragran-M) 1 each PO DAILY [facility] Last Admin: 03/19/19 09:18 Dose: 1 each Mupirocin (Bactroban Ointment (For Decolonization) -) 1 applic NS BID [facility] Stop: 03/22/19 21:59 Last Admin: 03/19/19 09:19 Dose: 1 applic Wqoed-8-Yupa Ethyl Esters (Lovaza -) 1 gm PO DAILY [facility] Last Admin: 03/19/19 09:18 Dose: 1 gm Senna (Senna -) 2 tab PO HS PRN PRN Reason: CONSTIPATION Tamsulosin HCl (Flomax -) 0.8 mg PO DAILY@0830 [facility] Last Admin: 03/19/19 09:18 Dose: 0.8 mg ASSESSMENT AND PLAN: Acute Hypoxic Respiratory Failure Pneumonia Acute on Chronic Diastolic Heart Failure Acute on Chronic Renal Failure h/o PPM BPH - continue antibiotics - f/u cultures - taper FiO2 to keep Spo2 >90% - short course of medrol - inhaled bronchodilators - monitor urine output, creatinine - DVT prophylaxis - can monitor on telemetry with pulse oximetry monitoring
--- NOTE | 2019-03-19 12:58 | PN ---
Physical Exam: SUBJECTIVE: Patient seen and examined at the bedside. feels like his breathing is improving. 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 Initially was being treated at [facility] for shortness of breath, cough and wheezing and transferred to [facility] on 03/17/2019 for acute respiratory failure requiring high flow oxygen. imaging: chest ct 03/17/2019 (non contrast): 1. bilateral lower lobe, right upper and middle lobe air space disease with consolidation consistent with pneumonia (2) no pneumothorax or pleural effusion (3) borderline over distention of the gallbaldder with a small stone without wall thickening. Vital Signs Period Temp Pulse Resp BP Sys/Richardson Pulse Ox Last 24 Hr 97.2 F-98.6 F 83-96 21-29 111-144/73-90 93-96 GENERAL: The patient is awake, alert, and fully oriented, in no acute distress. on high flow 02 sats are between 91-92% at rest. HEAD: Normal with no signs of trauma. EYES: PERRL, extraocular movements intact, sclera anicteric, conjunctiva clear. No ptosis. ENT: Ears normal, nares patent, oropharynx clear without exudates, dry mucous membranes. NECK: Trachea midline, full range of motion, supple. LUNGS: anterior lungs diminished/clear mostly. posteriorly with scattered rhonchi, but improved since yesterday HEART: tachycardia on monitor, irregular rate ABDOMEN: Soft, nontender, distended, normoactive bowel sounds, no guarding EXTREMITIES: +1 bilateral lowe ext edema. NEUROLOGICAL:Normal speech, gait not observed. PSYCH: Normal mood, normal affect. SKIN: Warm, dry, normal turgor, no rashes or lesions noted Laboratory Results - last 24 hr 03/18/19 03/19/19 03/19/19 05:15 05:20 05:20 WBC 20.8 H RBC 4.89 Hgb 14.4 Hct 42.7 MCV 87.4 MCH 29.4 MCHC 33.6 RDW 15.7 Plt Count 392 380 MPV 8.4 8.3 Absolute Neuts (auto) 19.4 H Neutrophils % 93.2 H Neutrophils % (Manual) 83.0 H 86.1 H Band Neutrophils % 4.0 2.0 Lymphocytes % 3.4 L D Lymphocytes % (Manual) 7.0 L D 5.9 L Monocytes % 1.6 L Monocytes % (Manual) 2 L 1 L Eosinophils % 1.7 D Eosinophils % (Manual) 0.0 0.0 Basophils % 0.1 Basophils % (Manual) 0.0 0.0 Myelocytes % (Man) 0 3 H D Promyelocytes % (Man) 0 0 Blast Cells % (Manual) 0 0 Nucleated RBC % 2 H 0 Metamyelocytes 1 2 D Hypochromia 0 0 Platelet Estimate Normal Normal Platelet Comment Present Polychromasia 1+ 0 Poikilocytosis 1+ 0 Anisocytosis 1+ 0 Microcytosis 1+ 0 Macrocytosis 0 0 Spherocytes 1+ Target Cells 1+ Tear Drop Cells 1+ Alexi Cells 1+ Sodium Potassium Chloride Carbon Dioxide Anion Gap BUN Creatinine Est GFR (CKD-EPI)AfAm Est GFR (CKD-EPI)NonAf Random Glucose Calcium Magnesium Total Bilirubin AST ALT Alkaline Phosphatase Total Protein Albumin Random Vancomycin 9.8 L 03/19/19 05:20 WBC RBC Hgb Hct MCV MCH MCHC RDW Plt Count MPV Absolute Neuts (auto) Neutrophils % Neutrophils % (Manual) Band Neutrophils % Lymphocytes % Lymphocytes % (Manual) Monocytes % Monocytes % (Manual) Eosinophils % Eosinophils % (Manual) Basophils % Basophils % (Manual) Myelocytes % (Man) Promyelocytes % (Man) Blast Cells % (Manual) Nucleated RBC % Metamyelocytes Hypochromia Platelet Estimate Platelet Comment Polychromasia Poikilocytosis Anisocytosis Microcytosis Macrocytosis Spherocytes Target Cells Tear Drop Cells Alexi Cells Sodium 141 Potassium 4.5 Chloride 107 Carbon Dioxide 24 Anion Gap 9 BUN 90.4 H Creatinine 2.3 H Est GFR (CKD-EPI)AfAm 29.13 Est GFR (CKD-EPI)NonAf 25.14 Random Glucose 150 H Calcium 9.1 Magnesium 2.7 H Total Bilirubin 1.0 AST 25 ALT 40 Alkaline Phosphatase 96 Total Protein 5.6 L Albumin 2.3 L Random Vancomycin Active Medications Generic Name Dose Route Start Last Admin Trade Name Freq PRN Reason Stop Dose Admin Albuterol/Ipratropium 1 amp 03/17/19 18:08 Duoneb - NEB Q4H PRN SHORTNESS OF BREATH Albuterol/Ipratropium 1 amp 03/17/19 20:00 03/19/19 11:45 Duoneb - NEB 1 amp RQID MANUEL Administration Aspirin 81 mg 03/18/19 10:00 03/19/19 09:18 Ecotrin - PO 81 mg DAILY MANUEL Administration Chlorhexidine Gluconate 1 applic 03/17/19 22:00 03/18/19 21:48 Hibiclens For Decolonization - TP 1 applic HS MANUEL Administration Docusate Sodium 100 mg 03/18/19 22:00 03/19/19 06:35 Colace - PO 100 mg TID MANUEL Administration Finasteride 5 mg 03/18/19 10:00 03/19/19 09:18 Proscar - PO 5 mg DAILY MANUEL Administration Heparin Sodium (Porcine) 5,000 unit 03/18/19 22:00 03/19/19 09:18 Heparin - SQ 5,000 unit BID MANUEL Administration Piperacillin Sod/Tazobactam 50 mls @ 100 mls/hr 03/17/19 19:45 03/19/19 09:19 Sod 2.25 gm/ Dextrose IVPB 03/19/19 19:44 100 mls/hr Q8H-IV MANUEL Administration Protocol Melatonin 5 mg 03/18/19 21:31 03/18/19 21:39 Melatonin PO 5 mg HS PRN Administration INSOMNIA Methylprednisolone Sodium Succinate 40 mg 03/18/19 15:15 03/19/19 09:18 Solu-Medrol - IVPUSH 40 mg Q8H-IV MANUEL Administration Metoprolol Succinate 25 mg 03/18/19 10:00 03/19/19 09:18 Toprol Xl - PO 25 mg DAILY MANUEL Administration Multivitamins/Minerals 1 each 03/18/19 10:00 03/19/19 09:18 Theragran-M PO 1 each DAILY [facility]UEL Administration Mupirocin 1 applic 03/17/19 22:00 03/19/19 09:19 Bactroban Ointment (For Decolonization) - NS 03/22/19 21:59 1 applic BID MANUEL Administration Wmuqw-0-Wodt Ethyl Esters 1 gm 03/18/19 10:00 03/19/19 09:18 Lovaza - PO 1 gm DAILY [facility]UEL Administration Senna 2 tab 03/18/19 22:00 Senna - PO HS PRN CONSTIPATION Tamsulosin HCl 0.8 mg 03/18/19 08:30 03/19/19 09:18 Flomax - PO 0.8 mg DAILY@0830 [facility] Administration ASSESSMENT/PLAN: Problem List - Problems (1) Pneumonia Assessment/Plan: per chest ct: bilateral lower lobe and right upper and mid lobe pneumonia. airway support with high flow oxygen to maintain sats above 92%. on duonebs. on zosyn per ID Code(s): J18.9 - PNEUMONIA, UNSPECIFIED ORGANISM Qualifiers: Pneumonia type: due to unspecified organism Laterality: right Lung location: unspecified part of lung Qualified Code(s): J18.9 - Pneumonia, unspecified organism (2) Acute respiratory failure Assessment/Plan: on high flow oxygen and continuous pulse ox monitoring awake and alert with mild conversational dyspnea pulmonary following, notes reviewed and appreciated. abg reviewed Code(s): J96.00 - ACUTE RESPIRATORY FAILURE, UNSP W HYPOXIA OR HYPERCAPNIA (3) Shortness of breath Assessment/Plan: bilateral pneumonia on ct imaging. on high flow oxygen with continuous pulse ox monitoring Code(s): R06.02 - SHORTNESS OF BREATH (4) VARSHA (acute kidney injury) Code(s): N17.9 - ACUTE KIDNEY FAILURE, UNSPECIFIED (5) BPH (benign prostatic hyperplasia) Assessment/Plan: currently with issa cathether with hazy urine Code(s): N40.0 - BENIGN PROSTATIC HYPERPLASIA WITHOUT LOWER URINRY TRACT SYMP (6) Elevated serum creatinine Assessment/Plan: per renal, hold lasix daily cmp Code(s): R79.89 - OTHER SPECIFIED ABNORMAL FINDINGS OF BLOOD CHEMISTRY (7) Elevated troponin Assessment/Plan: no chest pain, cardiology following Code(s): R79.89 - OTHER SPECIFIED ABNORMAL FINDINGS OF BLOOD CHEMISTRY (8) HTN (hypertension) Code(s): I10 - ESSENTIAL (PRIMARY) HYPERTENSION (9) Hypoxia Code(s): R09.02 - HYPOXEMIA (10) Status post biventricular pacemaker Assessment/Plan: placed in 2019, well healed surgical scar placed for high grade av block Code(s): Z95.0 - PRESENCE OF CARDIAC PACEMAKER (11) Acute on chronic diastolic (congestive) heart failure Assessment/Plan: monitor intake and output with daily weights lasix per renal Code(s): I50.33 - ACUTE ON CHRONIC DIASTOLIC (CONGESTIVE) HEART FAILURE (12) Requires aspiration precautions Assessment/Plan: maintain aspiration precautions until respiratory status improves Code(s): Z91.89 - OTH PERSONAL RISK FACTORS, NOT ELSEWHERE CLASSIFIED (13) DVT prophylaxis Assessment/Plan: heparin bid Code(s): Z29.9 - ENCOUNTER FOR PROPHYLACTIC MEASURES, UNSPECIFIED (14) Prophylactic measure Assessment/Plan: fen low salt diet monitor electrolytes daily add supplements aspiration precautions full code Code(s): Z29.9 - ENCOUNTER FOR PROPHYLACTIC MEASURES, UNSPECIFIED Visit type - Emergency Visit Emergency Visit: Yes ED Registration Date: 03/15/19 Care time: The patient presented to the Emergency Department on the above date and was hospitalized for further evaluation of their emergent condition. - New Patient This patient is new to me today: No - Critical Care Critical Care patient: No - Discharge Referral Referred to [facility] No
--- NOTE | 2019-03-19 13:20 | PN ---
Physical Exam: SUBJECTIVE: Patient seen and examined. No event overnight except for agitation. OBJECTIVE: Vital Signs Period Temp Pulse Resp BP Sys/Richardson Pulse Ox Last 24 Hr 97.2 F-98.6 F 83-96 21-29 111-144/73-90 93-96 GENERAL: The patient is awake, alert, and fully oriented, in no acute distress. HEAD: Normal with no signs of trauma. EYES: PERRL, extraocular movements intact, sclera anicteric, conjunctiva clear. No ptosis. ENT: oropharynx clear without exudates, moist mucous membranes. LUNGS: scattered rales, no wheezes, no accessory muscle use. HEART: Regular rate and rhythm, S1, S2 without murmur, rub or gallop. ABDOMEN: Soft, nontender, nondistended, normoactive bowel sounds, no guarding, no rebound, no hepatosplenomegaly, no masses. EXTREMITIES: 2+ pulses, warm, well-perfused, no edema. PSYCH: Normal mood, normal affect. SKIN: Warm, dry, normal turgor, no rashes or lesions noted Laboratory Results - last 24 hr 03/18/19 03/19/19 03/19/19 05:15 05:20 05:20 WBC 20.8 H RBC 4.89 Hgb 14.4 Hct 42.7 MCV 87.4 MCH 29.4 MCHC 33.6 RDW 15.7 Plt Count 392 380 MPV 8.4 8.3 Absolute Neuts (auto) 19.4 H Neutrophils % 93.2 H Neutrophils % (Manual) 86.1 H Band Neutrophils % 2.0 Lymphocytes % 3.4 L D Lymphocytes % (Manual) 5.9 L Monocytes % 1.6 L Monocytes % (Manual) 1 L Eosinophils % 1.7 D Eosinophils % (Manual) 0.0 Basophils % 0.1 Basophils % (Manual) 0.0 Myelocytes % (Man) 3 H D Promyelocytes % (Man) 0 Blast Cells % (Manual) 0 Nucleated RBC % 0 Metamyelocytes 2 D Hypochromia 0 Platelet Estimate Normal Polychromasia 0 Poikilocytosis 0 Anisocytosis 0 Microcytosis 0 Macrocytosis 0 Sodium Potassium Chloride Carbon Dioxide Anion Gap BUN Creatinine Est GFR (CKD-EPI)AfAm Est GFR (CKD-EPI)NonAf Random Glucose Calcium Magnesium Total Bilirubin AST ALT Alkaline Phosphatase Total Protein Albumin Random Vancomycin 9.8 L 03/19/19 05:20 WBC RBC Hgb Hct MCV MCH MCHC RDW Plt Count MPV Absolute Neuts (auto) Neutrophils % Neutrophils % (Manual) Band Neutrophils % Lymphocytes % Lymphocytes % (Manual) Monocytes % Monocytes % (Manual) Eosinophils % Eosinophils % (Manual) Basophils % Basophils % (Manual) Myelocytes % (Man) Promyelocytes % (Man) Blast Cells % (Manual) Nucleated RBC % Metamyelocytes Hypochromia Platelet Estimate Polychromasia Poikilocytosis Anisocytosis Microcytosis Macrocytosis Sodium 141 Potassium 4.5 Chloride 107 Carbon Dioxide 24 Anion Gap 9 BUN 90.4 H Creatinine 2.3 H Est GFR (CKD-EPI)AfAm 29.13 Est GFR (CKD-EPI)NonAf 25.14 Random Glucose 150 H Calcium 9.1 Magnesium 2.7 H Total Bilirubin 1.0 AST 25 ALT 40 Alkaline Phosphatase 96 Total Protein 5.6 L Albumin 2.3 L Random Vancomycin Active Medications Generic Name Dose Route Start Last Admin Trade Name Freq PRN Reason Stop Dose Admin Albuterol/Ipratropium 1 amp 03/17/19 18:08 Duoneb - NEB Q4H PRN SHORTNESS OF BREATH Albuterol/Ipratropium 1 amp 03/17/19 20:00 03/19/19 11:45 Duoneb - NEB 1 amp RQID MANUEL Administration Aspirin 81 mg 03/18/19 10:00 03/19/19 09:18 Ecotrin - PO 81 mg DAILY MANUEL Administration Chlorhexidine Gluconate 1 applic 03/17/19 22:00 03/18/19 21:48 Hibiclens For Decolonization - TP 1 applic HS MANUEL Administration Docusate Sodium 100 mg 03/18/19 22:00 03/19/19 06:35 Colace - PO 100 mg TID MANUEL Administration Finasteride 5 mg 03/18/19 10:00 03/19/19 09:18 Proscar - PO 5 mg DAILY [facility]UEL Administration Heparin Sodium (Porcine) 5,000 unit 03/18/19 22:00 03/19/19 09:18 Heparin - SQ 5,000 unit BID MANUEL Administration Piperacillin Sod/Tazobactam 50 mls @ 100 mls/hr 03/17/19 19:45 03/19/19 09:19 Sod 2.25 gm/ Dextrose IVPB 03/19/19 19:44 100 mls/hr Q8H-IV MANUEL Administration Protocol Melatonin 5 mg 03/18/19 21:31 03/18/19 21:39 Melatonin PO 5 mg HS PRN Administration INSOMNIA Methylprednisolone Sodium Succinate 40 mg 03/18/19 15:15 03/19/19 09:18 Solu-Medrol - IVPUSH 40 mg Q8H-IV MANUEL Administration Metoprolol Succinate 25 mg 03/18/19 10:00 03/19/19 09:18 Toprol Xl - PO 25 mg DAILY [facility]UEL Administration Multivitamins/Minerals 1 each 03/18/19 10:00 03/19/19 09:18 Theragran-M PO 1 each DAILY [facility] Administration Mupirocin 1 applic 03/17/19 22:00 03/19/19 09:19 Bactroban Ointment (For Decolonization) - NS 03/22/19 21:59 1 applic BID MANUEL Administration Nmhrz-3-Tlgf Ethyl Esters 1 gm 03/18/19 10:00 03/19/19 09:18 Lovaza - PO 1 gm DAILY [facility]UEL Administration Senna 2 tab 03/18/19 22:00 Senna - PO HS PRN CONSTIPATION Tamsulosin HCl 0.8 mg 03/18/19 08:30 03/19/19 09:18 Flomax - PO 0.8 mg DAILY@0830 [facility] Administration ASSESSMENT/PLAN: 83 y.o. M PMH HTN, heart block s/p pacemaker placement 01/2019, BPH, morbid obesity presenting for sepsis 2/2 pneumonia. 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 -C/w Metoprolol -Echo: LVEF 65%. Mod concentric LVH. Reduced RV systolic function. -trops wnl -s/p 120mg IV lasix today w/ 1.5L output; issa in place -monitor Is & Os, daily weights -f/u records with outpatient caridologist Dr. Jose Hardy-- had recent stress test prior to pacemaker placement -Dr. stapleton following -Chest CT w/o e/o pleural effusion #Pulm -Continue oxygen therapy on high flow -continue duonebs prn -40mg q8H solumedrol -F/U respiratory serology #Renal -Hx BPH -VARSHA; latest Cr 3.4 -> 2.3. baseline ~1.5 -s/p lasix -renal U/S" : simple cyst 1.3 cm. no hydronephrosis -holding ARB -Dr. hand RECS: cautious with Lasix -Issa in place -flomax, finasteride-- home meds -f/u renal vasculitis immunology/serology #ID -empiric zosyn RENAL DOSED; s/p vanc/zosyn/zithromax dose in ED - cultures neg thus far -dr. caicedo following #FENLTD -no ivf -trend lytes replete prn -low sodium diet -peirpheral lines -issa placed PPX: hep subQ Dispo: pending tele transfer Visit type - Emergency Visit Emergency Visit: Yes ED Registration Date: 03/15/19 Care time: The patient presented to the Emergency Department on the above date and was hospitalized for further evaluation of their emergent condition. - New Patient This patient is new to me today: No - Critical Care Critical Care patient: Yes Total Critical Care Time (in minutes): 36 Critical Care Statement: The care of this patient involved high complexity decision making to prevent further life threatening deterioration of the patient's condition and/or to evaluate & treat vital organ system(s) failure or risk of failure. ATTENDING PHYSICIAN STATEMENT I saw and evaluated the patient. I reviewed the resident's note and discussed the case with the resident. I agree with the resident's findings and plan as documented. SUBJECTIVE: OBJECTIVE: ASSESSMENT AND PLAN:
--- NOTE | 2019-03-19 13:38 | PN ---
Progress Note, Physician History of Present Illness: Pt seen and examined at bedside. He is awake and appears comfortable. He feels that his breathing is improved. - Current Medication List Current Medications: Active Medications Albuterol/Ipratropium (Duoneb -) 1 amp NEB Q4H PRN PRN Reason: SHORTNESS OF BREATH Albuterol/Ipratropium (Duoneb -) 1 amp NEB RQID [facility] Last Admin: 03/19/19 11:45 Dose: 1 amp Aspirin (Ecotrin -) 81 mg PO DAILY [facility] Last Admin: 03/19/19 09:18 Dose: 81 mg Chlorhexidine Gluconate (Hibiclens For Decolonization -) 1 applic TP HS [facility] Last Admin: 03/18/19 21:48 Dose: 1 applic Docusate Sodium (Colace -) 100 mg PO TID [facility] Last Admin: 03/19/19 06:35 Dose: 100 mg Finasteride (Proscar -) 5 mg PO DAILY [facility] Last Admin: 03/19/19 09:18 Dose: 5 mg Heparin Sodium (Porcine) (Heparin -) 5,000 unit SQ BID [facility] Last Admin: 03/19/19 09:18 Dose: 5,000 unit Piperacillin Sod/Tazobactam (Sod 2.25 gm/ Dextrose) 50 mls @ 100 mls/hr IVPB Q8H-IV [facility]; Protocol Stop: 03/19/19 19:44 Last Admin: 03/19/19 09:19 Dose: 100 mls/hr Melatonin (Melatonin) 5 mg PO HS PRN PRN Reason: INSOMNIA Last Admin: 03/18/19 21:39 Dose: 5 mg Methylprednisolone Sodium Succinate (Solu-Medrol -) 40 mg IVPUSH Q8H-IV [facility] Last Admin: 03/19/19 09:18 Dose: 40 mg Metoprolol Succinate (Toprol Xl -) 25 mg PO DAILY [facility] Last Admin: 03/19/19 09:18 Dose: 25 mg Multivitamins/Minerals (Theragran-M) 1 each PO DAILY [facility] Last Admin: 03/19/19 09:18 Dose: 1 each Mupirocin (Bactroban Ointment (For Decolonization) -) 1 applic NS BID [facility] Stop: 03/22/19 21:59 Last Admin: 03/19/19 09:19 Dose: 1 applic Gliqa-0-Symc Ethyl Esters (Lovaza -) 1 gm PO DAILY [facility] Last Admin: 03/19/19 09:18 Dose: 1 gm Senna (Senna -) 2 tab PO HS PRN PRN Reason: CONSTIPATION Tamsulosin HCl (Flomax -) 0.8 mg PO DAILY@0830 [facility] Last Admin: 03/19/19 09:18 Dose: 0.8 mg - Objective Vital Signs: Vital Signs Temperature 98.2 F 03/19/19 09:54 Pulse Rate 90 03/19/19 09:54 Respiratory Rate 22 H 03/19/19 09:54 Blood Pressure 128/73 03/19/19 09:54 O2 Sat by Pulse Oximetry (%) 96 03/19/19 09:00 Constitutional: Yes: Calm Eyes: Yes: Conjunctiva Clear HENT: Yes: Atraumatic Cardiovascular: Yes: S1, S2 Respiratory: Yes: On Nasal O2 Gastrointestinal: Yes: Soft Genitourinary: Yes: WNL Musculoskeletal: Yes: WNL Edema: LLE: Trace, RLE: Trace Neurological: Yes: Oriented Psychiatric: Yes: Oriented Labs: CBC, BMP 03/19/19 05:20 03/19/19 05:20 Problem List - Problems (1) VARSHA (acute kidney injury) Code(s): N17.9 - ACUTE KIDNEY FAILURE, UNSPECIFIED (2) BPH (benign prostatic hyperplasia) Code(s): N40.0 - BENIGN PROSTATIC HYPERPLASIA WITHOUT LOWER URINRY TRACT SYMP (3) Elevated serum creatinine Code(s): R79.89 - OTHER SPECIFIED ABNORMAL FINDINGS OF BLOOD CHEMISTRY Assessment/Plan Current Medications Generic Name Dose Route Start Last Admin Trade Name Diegoq PRN Reason Stop Dose Admin Albuterol/Ipratropium 1 amp 03/17/19 18:08 Duoneb - NEB Q4H PRN SHORTNESS OF BREATH Albuterol/Ipratropium 1 amp 03/17/19 20:00 03/19/19 11:45 Duoneb - NEB 1 amp RQID [facility] Administration Aspirin 81 mg 03/18/19 10:00 03/19/19 09:18 Ecotrin - PO 81 mg DAILY [facility] Administration Chlorhexidine Gluconate 1 applic 03/17/19 22:00 03/18/19 21:48 Hibiclens For Decolonization - TP 1 applic HS [facility] Administration Docusate Sodium 100 mg 03/18/19 22:00 03/19/19 13:33 Colace - PO 100 mg TID [facility] Administration Finasteride 5 mg 03/18/19 10:00 03/19/19 09:18 Proscar - PO 5 mg DAILY [facility] Administration Heparin Sodium (Porcine) 5,000 unit 03/18/19 22:00 03/19/19 09:18 Heparin - SQ 5,000 unit BID [facility] Administration Piperacillin Sod/Tazobactam 50 mls @ 100 mls/hr 03/17/19 19:45 03/19/19 09:19 Sod 2.25 gm/ Dextrose IVPB 03/19/19 19:44 100 mls/hr Q8H-IV [facility] Administration Protocol Melatonin 5 mg 03/18/19 21:31 03/18/19 21:39 Melatonin PO 5 mg HS PRN Administration INSOMNIA Methylprednisolone Sodium Succinate 40 mg 03/18/19 15:15 03/19/19 09:18 Solu-Medrol - IVPUSH 40 mg Q8H-IV [facility] Administration Metoprolol Succinate 25 mg 03/18/19 10:00 03/19/19 09:18 Toprol Xl - PO 25 mg DAILY [facility] Administration Multivitamins/Minerals 1 each 03/18/19 10:00 03/19/19 09:18 Theragran-M PO 1 each DAILY [facility] Administration Mupirocin 1 applic 03/17/19 22:00 03/19/19 09:19 Bactroban Ointment (For Decolonization) - NS 03/22/19 21:59 1 applic BID [facility] Administration Browo-2-Dyfu Ethyl Esters 1 gm 03/18/19 10:00 03/19/19 09:18 Lovaza - PO 1 gm DAILY [facility] Administration Senna 2 tab 03/18/19 22:00 Senna - PO HS PRN CONSTIPATION Tamsulosin HCl 0.8 mg 03/18/19 08:30 03/19/19 09:18 Flomax - PO 0.8 mg DAILY@0830 [facility] Administration Impression 1. VARSHA 2. PNA 3. hx HTN 4. BPH 5. hx PPM 6. sepsis Plan - renal function improving - wbc improving - repeat labs in am - cont abx - volume status stable - follow serologies
--- NOTE | 2019-03-19 14:46 | CONSULT ---
Admitting History and Physical - Primary Care Physician PCP: Jessi Lord - Admission History of Present Illness: Per EMR- HISTORY OF PRESENT ILLNESS: This is a 83 y/o man with a PMHx of HTN, BPH, s/p PPM (01/2019). Who presents to the ED with worsening cough, SOB and weakness x several days. patient reports having a productive cough with grayish phelgm. He reports recent sick exposure- his has Bronchitis. Patient reports having recent pacemaker placed last month. Patient denies chills, WRIGHT, dizziness, CP, palpitations, AP, N /V/D, constipation, dysuria. chest Xray image- patchy infiltrates RLL Acute hypoxemic respiratory failure, requiring 50% FIO2 Probable RML/RLL PNA Acute on chronic diastolic CHF, mild exacerbation Acute on chronic renal failure Selected Entries 03/17/19 03/17/19 03/17/19 02:00 06:00 09:00 Breakfast 100% Diet Tolerated Lunch Temperature 98.1 F 98.2 F 03/17/19 03/17/19 03/17/19 10:16 12:55 13:15 Breakfast 100% Diet Tolerated Lunch 75% Temperature 98.2 F 03/17/19 03/17/19 03/18/19 18:00 22:00 02:00 Breakfast Diet Tolerated Lunch Temperature 97.3 F L 97.9 F 97.7 F 03/18/19 03/18/19 03/18/19 06:00 08:00 10:08 Breakfast Diet Tolerated Lunch Temperature 98.0 F 98 F 98.4 F 03/18/19 03/18/19 03/18/19 14:20 15:45 16:00 Breakfast 50% Diet Tolerated Fair Lunch 50% Temperature 98.2 F 98.4 F 03/18/19 03/19/19 03/19/19 23:00 01:56 05:54 Breakfast Diet Tolerated Lunch Temperature 98.1 F 98.6 F 97.2 F L 03/19/19 03/19/19 09:54 10:00 Breakfast 100% 100% Diet Tolerated Well Well Lunch Temperature 98.2 F Laboratory Tests 03/15/19 03/16/19 03/17/19 16:51 07:15 07:00 WBC 24.6 H 25.9 H 31.7 H* 03/18/19 03/19/19 05:15 05:20 WBC 27.5 H 20.8 H On Reg diet/thin liquids History Source: Patient, Medical Record Limitations to Obtaining History: Clinical Condition - Past Medical History Cardiovascular: Yes: HTN, Other (PPM) Pulmonary: No: Asthma, Bronchitis, Cancer, COPD, O2 Dependent, Pneumonia, Previously Intubated, Pulmonary Embolus, Pulmonary Fibrosis, Sleep Apnea, Other Gastrointestinal: No: Ascites, Cancer, Constipation, Crohn's Disease, Diverticulitis, Diverticulosis, Esophageal Varices, Gastritis, GERD, GI Bleed, Hemorrhoids, Hiatal Hernia, Inflamatory Bowel Disease, Irritable Bowel Disease, Pancreatitis, Peptic Ulcer Disease, Ulcerative Colitis, Other Hepatobiliary: No: Cirrhosis, Cholelithiasis, Cholecystitis, Choledocholithiasis , Hepatitis A, Hepatitis B, Hepatitis C, Other Renal/: No: Renal Failure, Renal Inusuff, BPH, Cancer, Hematuria, Hemodialysis , Neurogenic Bladder, Renal Calculi, UTI, Other Heme/Onc: No: Anemia, B12 Deficiency, Bleeding Disorder, Cancer, Current Chemotherapy, Current Radiation Therapy, Hemochromatosis, Hypercoaguable State, Myeloproliferative Synd, Sickle Cell Disease, Sickle Cell Trait, Thrombocytopenia, Other Infectious Disease: No: AIDS, C-Diff, Herpes Zoster, HIV, MRSA, STD's, Tuberculosis, VREF, Other Psych: No: Addictions, Anxiety, Bipolar, Depression, Panic, Psychosis, Schizophrenia, Other Musculoskeletal: No: Bursitis, Chronic low back pain, Hemiparesis, Hemiplegia, Osteoarthritis, Paraplegia, Other Rheumatology: No: Fibromyalgia, Gout, Lupus, Rheumatoid Arthritis, Sarcoidosis, Vasculitis, Other ENT: No: Allergic Rhinitis, Sinusitis, Other Endocrine: No: Burlington's Disease, Jose's Disease, Diabetes Insipidus, Diabetes Mellitus, Hyperparathyroidism, Hyperthyroidism, Hypothyroidism, Osteopenia, SIADH, Other Dermatology: No: Basal Cell, Cellulitis, Eczema, Melanoma, Psoriasis, Squamous Cell, Other - Past Surgical History Past Surgical History: Yes: Permanent Pacemaker - Smoking History Smoking history: Never smoked Have you smoked in the past 12 months: No - Social History Usual Living Arrangement: Yes: With Spouse ADL: Independent 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 History of Recent Travel: No History - Admission Reason For Visit: ELEVAT.TROPONIN 1 LEVEL/HIGH SERUM CREATININE/PNEU - Diagnostics X-ray: Report Reviewed CT Scan: Report Reviewed - General Mental Status: Alert and Oriented, Awake and Alert, Able to Follow Commands, Forgetful, Intermittently Confused (at night) Attention: Intact Ability to Follow Directions: Excellent Head/Neck Control: WFL - Hearing Hearing: Impaired Hearing Aide: Yes With Patient: No Speech Evaluation - Communication Primary Language: KINYARWANDA Communication: Yes: Within Normal Limits Oral Expression Ability: Yes: No Impairment - Speech Production Able to Make Needs Known: Yes: WNL Intelligibility: Yes: WNL - Speech Characteristics Voice Loudness: Normal Voice Pitch: Yes: Normal Voice Phonatory-based Quality: Yes: Normal Speech Clarity: < 100% Nasal Resonance: Normal Articulation: Yes: Precise Rate of Speech: Intact Voice, Other Observations: Yes: Inadequate Breath Support (sob while speaking, verbose) - Language/Auditory Comprehension Follows: Yes: 2 Stage Simple Commands Observation: Able to respond to yes/no queries: Yes, Yes/No Confusion: No, Comprehends Conversational Speech: Yes - Language/Verbal Expression Able to Respond to Simple Queries: Yes: WNL Able to Communicate Wants and Needs: Yes: WNL Functional Communication Status: Yes: WNL - Swallow Evaluation/Bedside Assessment Current Nutritional Intake: Regular, Thin Liquids Oral Secretions: Yes: WFL Dentition: Yes: Adequate Facial Symmetry at Rest: Symmetrical Facial Symmetry on Retraction: Symmetrical Facial Movement: Controlled Sensation: Normal Against Resistance Opening: Normal Against Resistance Closing: Normal Pucker Lips: Normal Smile: Normal Lingual Movement: Normal, Symmetric Lingual Speed of Movement: Normal Lingual Movement Strgth Against Opposition: Normal Lingual Movement Characteristics: Normal Velopharyngeal Movement: Normal Laryngeal Elevation: WFL Laryngeal Movement: Able to Palpate Rate of Intake: WFL Bolus Size: WFL Labial Seal: WFL Chewing: WFL Oral Prep Time: WFL A-P Transit: WFL Pocketing: None Timing of Swallow: WFL Coughing/Throat Clear: No Change in Voice: No Recommendations - Speech Evaluation, Impression/Plan Impression: Verbose, become sob with ongoing speech. Oriented and wants to sign out, and go home. Forgetful. Swallowing overtly intact. - Dysphagia Impressions/Plan Swallowing Skills: WFL Dysphagia Impressions: No Impairment *Silent aspiration: cannot be R/O at bedside Dysphagia Treatment Plan: Elevate HOB during feed, Other (elevate for 1 hour after meals. Avoid po intake for 2-3 hours before bedtime) Recommendations: Modified Barium Swallow (if silent aspiration is suspected. Overtly tolerate all consistencies) - Recommendations Diet Consistency: Regular Medication Administration: Whole with water Liquids: Thin Liquids
--- NOTE | 2019-03-19 15:14 | EKG ---
Test Reason : Blood Pressure : / mmHG Vent. Rate : 092 BPM Atrial Rate : 087 BPM P-R Int : 266 ms QRS Dur : 178 ms QT Int : 418 ms P-R-T Axes : 032 -44 005 degrees QTc Int : 516 ms SINUS RHYTHM WITH 1ST DEGREE A-V BLOCK PREMATURE VENTRICULAR COMPLEXES LEFT AXIS DEVIATION RIGHT BUNDLE BRANCH BLOCK ABNORMAL ECG Confirmed by VICKI GASPAR MD ([id number]) on 03/19/2019 3:14:33 PM Referred By: MD DANIEL Matt Confirmed By:VICKI GASPAR MD
--- NOTE | 2019-03-19 15:14 | EKG ---
Test Reason : Blood Pressure : / mmHG Vent. Rate : 097 BPM Atrial Rate : 098 BPM P-R Int : 248 ms QRS Dur : 176 ms QT Int : 382 ms P-R-T Axes : 057 -45 002 degrees QTc Int : 485 ms SINUS RHYTHM WITH 1ST DEGREE A-V BLOCK PREMATURE VENTRICULAR COMPLEXES RIGHT BUNDLE BRANCH BLOCK LEFT ANTERIOR FASCICULAR BLOCK BIFASCICULAR BLOCK ABNORMAL ECG Confirmed by CHASITY HAYDEN, VICKI ([id number]) on 03/19/2019 3:13:59 PM Referred By: EMBER DALTON Confirmed By:VICKI GASPAR MD
[2019-03-19 17:06] LABS: FREE KAPPA,SERUM 47.2 mg/L (3.3-19.4)
[2019-03-19] MEDS: MELATONIN 5 MG TABLETS PO PRN (22:35)
[2019-03-19] MEDS: CHLORHEXIDINE GLUCONATE 4% CLEANSER FOR DECOLONIZATION TP SCH (22:51)
[2019-03-20] MEDS: methylPREDNISolone NA SUCC 40 MG/1 ML VIAL IVPUSH SCH ×3 (04:16→17:03)
[2019-03-20] MEDS: DOCUSATE SODIUM 100 MG CAPSULE (FP) PO SCH ×3 (06:00→21:31)
[2019-03-20] MEDS ORDERED: ALBUTEROL SO4 2.5/IPRATROPIUM 0.5 INH SOL 3 ML VIAL.NEB. NEB PRN (07:05)
[2019-03-20 07:16] LABS: BASO % 0.1 % (0-2.0); EOS % 0.1 % (0-4.5); HEMATOCRIT 42.1 % (35.4-49); MCH 29.4 pg (25.7-33.7); MCHC 33.2 g/dl (32.0-35.9); MEAN CELL VOLUME 88.4 fl (80-96); MEAN PLT VOLUME 8.2 fl (7.5-11.1); MONO % 4.4 % (3.8-10.2); NEUT % 91.4 % (42.8-82.8); PLATELET COUNT 446 K/MM3 (134-434); RBC 4.76 M/mm3 (4.00-5.60); RDW 15.9 % (11.9-15.9); WHITE BLOOD COUNT 25.7 K/mm3 (4.0-10.0)
[2019-03-20 07:43] LABS: ALBUMIN 2.4 g/dl (3.4-5.0); BILIRUBIN,TOTAL 0.9 mg/dL (0.2-1); BLOOD UREA NITROGEN 93.4 mg/dL (7-18); CALCIUM 9.5 mg/dL (8.5-10.1); CREATININE 2.2 mg/dL (0.55-1.3); MAGNESIUM 2.6 mg/dL (1.8-2.4); POTASSIUM 4.4 mmol/L (3.5-5.1); TOT PROT 5.7 g/dl (6.4-8.2)
[2019-03-20] MEDS: ALBUTEROL SO4 2.5/IPRATROPIUM 0.5 INH SOL 3 ML VIAL.NEB. NEB SCH ×4 (08:08→21:30)
[2019-03-20 09:08] LABS: ANISOCYTOSIS 1+; MACROCYTOSIS 0; PLATELET ESTIMATE NORMAL; TARGET CELLS 1+; TEAR DROP CELLS 1+
[2019-03-20] MEDS: TAMSULOSIN HCL 0.4 MG CAP PO SCH (09:26)
[2019-03-20] MEDS: metoPROLOL SUCCINATE 25 MG TAB.SR.24H (FP) PO SCH (09:26)
[2019-03-20] MEDS: MULTIVITAMINS THER W-MINERALS COMBO TABLET (FP) PO SCH (09:26)
[2019-03-20] MEDS: FINASTERIDE 5 MG TABLET (FP) PO SCH (09:27)
[2019-03-20] MEDS: ASPIRIN COATED 81 MG TABLET.EC PO SCH (09:27)
--- NOTE | 2019-03-20 09:47 | PN ---
Progress Note, Physician Chief Complaint: TELE: SR, PVCs, Occasional couplets No CP or SOB Feeling better - Current Medication List Current Medications: Active Medications Albuterol/Ipratropium (Duoneb -) 1 amp NEB Q4H PRN PRN Reason: SHORTNESS OF BREATH Albuterol/Ipratropium (Duoneb -) 1 amp NEB RQID [facility] Last Admin: 03/20/19 08:08 Dose: 1 amp Aspirin (Ecotrin -) 81 mg PO DAILY [facility] Last Admin: 03/20/19 09:27 Dose: 81 mg Docusate Sodium (Colace -) 100 mg PO TID [facility] Finasteride (Proscar -) 5 mg PO DAILY [facility] Last Admin: 03/20/19 09:27 Dose: 5 mg Heparin Sodium (Porcine) (Heparin -) 5,000 unit SQ BID [facility] Last Admin: 03/20/19 09:27 Dose: 5,000 unit Melatonin (Melatonin) 5 mg PO HS PRN PRN Reason: INSOMNIA Methylprednisolone Sodium Succinate (Solu-Medrol -) 40 mg IVPUSH Q8H-IV [facility] Last Admin: 03/20/19 09:26 Dose: 40 mg Metoprolol Succinate (Toprol Xl -) 25 mg PO DAILY [facility] Last Admin: 03/20/19 09:26 Dose: 25 mg Multivitamins/Minerals (Theragran-M) 1 each PO DAILY [facility] Last Admin: 03/20/19 09:26 Dose: 1 each Wilnl-9-Koyc Ethyl Esters (Lovaza -) 1 gm PO DAILY [facility] Senna (Senna -) 2 tab PO HS PRN PRN Reason: CONSTIPATION Tamsulosin HCl (Flomax -) 0.8 mg PO DAILY@0830 [facility] Last Admin: 03/20/19 09:26 Dose: 0.8 mg - Objective Vital Signs: Vital Signs Temperature 98.2 F 03/20/19 05:00 Pulse Rate 78 03/20/19 05:00 Respiratory Rate 22 H 03/20/19 05:00 Blood Pressure 149/73 03/20/19 05:00 O2 Sat by Pulse Oximetry (%) 94 L 03/19/19 21:00 Constitutional: Yes: No Distress Cardiovascular: Yes: Regular Rate and Rhythm Respiratory: Yes: Rhonchi Gastrointestinal: Yes: Soft, Abdomen, Obese Edema: No Neurological: Yes: Alert, Oriented Labs: CBC, BMP 03/20/19 05:49 03/20/19 05:49 Laboratory Tests 03/20/19 03/20/19 05:49 05:49 WBC 25.7 H Hgb 14.0 Plt Count 446 H Sodium 140 Potassium 4.4 Creatinine 2.2 H - ....Imaging EKG: Image Reviewed Assessment/Plan TELE: SR, intermittent V pacing, PVCs Echo: Other (Normal EF, mild to moderately dilated RV/ Mild to moderately reduced RVEF) Ejection Fraction %: LVEF > or = 40 % Assessment/Plan IMP: 1. Acute hypoxemic respiratory failure, requiring 50% FIO2 2. Probable RML/RLL PNA 3. Acute on chronic diastolic CHF, mild exacerbation 4. Acute on chronic renal failure 5. VPCS/ NSVT 6. 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 RV dysfunction (acute vs chronic?) REC: 1. monitoring on tele 2. Chest CT c/w PNA, manage per primary 3. F/u cultures/ abx and steroids as per primary medical and critical care team. 4. appears euvolemic, holding lasix. Creat improving 5. For NSVT: Keep K+ at 4, Mg2+ 2/Continue Metoprolol/ LVEF normal. Pt reports recent nuclear stress prior to PPM that was "ok"- will need to obtain reports from Dr. Jose Hardy (outpatient intake nurse). 6. RV dysfx seems likely due to acute hypoxia secondary to PNA; can repeat limited echo as outpatient once recovered to see if RV fx improves
[2019-03-20] MEDS ORDERED: HEPARIN NA (PORCINE) 5,000 UNITS/ML 1ML VIAL SQ SCH (10:00)
--- NOTE | 2019-03-20 11:05 | PN ---
Progress Note (short form) - Note Progress Note: Patient seen and examined in the ICU. Remains on HFOT 30L / 60% FiO2. States breathing better. Still with cough with thick sputum. No fevers. OBJECTIVE: Intake & Output 03/17/19 03/18/19 03/19/19 03/20/19 23:59 23:59 23:59 23:59 Intake Total 1600 50 100 0 Output Total 1575 3900 1300 600 Balance 25 -3850 -1200 -600 Weight 256 lb 1.6 oz 250 lb 246 lb Last Vital Signs Temp Pulse Resp BP Pulse Ox 98.2 F 78 22 H 149/73 94 L 03/20/19 05:00 03/20/19 05:00 03/20/19 05:00 03/20/19 05:00 03/19/19 21:00 Active Medications Albuterol/Ipratropium (Duoneb -) 1 amp NEB Q4H PRN PRN Reason: SHORTNESS OF BREATH Albuterol/Ipratropium (Duoneb -) 1 amp NEB RQID [facility] Last Admin: 03/20/19 08:08 Dose: 1 amp Aspirin (Ecotrin -) 81 mg PO DAILY [facility] Last Admin: 03/20/19 09:27 Dose: 81 mg Docusate Sodium (Colace -) 100 mg PO TID [facility] Finasteride (Proscar -) 5 mg PO DAILY [facility] Last Admin: 03/20/19 09:27 Dose: 5 mg Heparin Sodium (Porcine) (Heparin -) 5,000 unit SQ BID [facility] Last Admin: 03/20/19 09:27 Dose: 5,000 unit Melatonin (Melatonin) 5 mg PO HS PRN PRN Reason: INSOMNIA Methylprednisolone Sodium Succinate (Solu-Medrol -) 40 mg IVPUSH Q8H-IV [facility] Last Admin: 03/20/19 09:26 Dose: 40 mg Metoprolol Succinate (Toprol Xl -) 25 mg PO DAILY [facility] Last Admin: 03/20/19 09:26 Dose: 25 mg Multivitamins/Minerals (Theragran-M) 1 each PO DAILY [facility] Last Admin: 03/20/19 09:26 Dose: 1 each Iazpj-7-Fnon Ethyl Esters (Lovaza -) 1 gm PO DAILY [facility] Senna (Senna -) 2 tab PO HS PRN PRN Reason: CONSTIPATION Tamsulosin HCl (Flomax -) 0.8 mg PO DAILY@0830 [facility] Last Admin: 03/20/19 09:26 Dose: 0.8 mg Gen: NAD on HFOT Heart: RRR Lung: scattered basilar rhonchi Abd: soft, nontender Ext: no edema Laboratory Results - last 24 hr 03/18/19 03/18/19 03/20/19 05:15 05:15 05:49 WBC RBC Hgb Hct MCV MCH MCHC RDW Plt Count MPV Absolute Neuts (auto) Neutrophils % Neutrophils % (Manual) Band Neutrophils % Lymphocytes % Lymphocytes % (Manual) Monocytes % Monocytes % (Manual) Eosinophils % Eosinophils % (Manual) Basophils % Basophils % (Manual) Myelocytes % (Man) Promyelocytes % (Man) Blast Cells % (Manual) Nucleated RBC % Metamyelocytes Hypochromia Platelet Estimate Platelet Comment Polychromasia Poikilocytosis Anisocytosis Microcytosis Macrocytosis Spherocytes Target Cells Tear Drop Cells Sodium 140 Potassium 4.4 Chloride 106 Carbon Dioxide 25 Anion Gap 8 BUN 93.4 H Creatinine 2.2 H Est GFR (CKD-EPI)AfAm 30.74 Est GFR (CKD-EPI)NonAf 26.52 Random Glucose 108 H Calcium 9.5 Magnesium 2.6 H Total Bilirubin 0.9 AST 23 ALT 39 Alkaline Phosphatase 89 Total Protein 5.7 L Total Protein (PEP) 5.2 L Albumin 2.4 L Albumin (PEP) 2.3 L Globulin 2.9 Albumin/Globulin Ratio 0.8 Beta Globulins 0.8 VINICIUS M-Adriano 0.2 H Free [place] LC, Quant 47.2 H Free Lambda LC, Quant 45.3 H Free [place]/Lambda Ratio 1.04 03/20/19 05:49 WBC 25.7 H RBC 4.76 Hgb 14.0 Hct 42.1 MCV 88.4 MCH 29.4 MCHC 33.2 RDW 15.9 Plt Count 446 H MPV 8.2 Absolute Neuts (auto) 23.5 H Neutrophils % 91.4 H Neutrophils % (Manual) 86.3 H Band Neutrophils % 2.9 Lymphocytes % 4.0 L Lymphocytes % (Manual) 1.0 L D Monocytes % 4.4 D Monocytes % (Manual) 2 L D Eosinophils % 0.1 D Eosinophils % (Manual) 0.0 Basophils % 0.1 Basophils % (Manual) 0.0 Myelocytes % (Man) 2 D Promyelocytes % (Man) 0 Blast Cells % (Manual) 0 Nucleated RBC % 0 Metamyelocytes 1 D Hypochromia 0 Platelet Estimate Normal Platelet Comment Present Polychromasia 0 Poikilocytosis 1+ Anisocytosis 1+ Microcytosis 1+ Macrocytosis 0 Spherocytes 1+ Target Cells 1+ Tear Drop Cells 1+ Sodium Potassium Chloride Carbon Dioxide Anion Gap BUN Creatinine Est GFR (CKD-EPI)AfAm Est GFR (CKD-EPI)NonAf Random Glucose Calcium Magnesium Total Bilirubin AST ALT Alkaline Phosphatase Total Protein Total Protein (PEP) Albumin Albumin (PEP) Globulin Albumin/Globulin Ratio Beta Globulins VINICIUS M-Adriano Free [place] LC, Quant Free Lambda LC, Quant Free [place]/Lambda Ratio ASSESSMENT AND PLAN: Acute Hypoxic Respiratory Failure Pneumonia Acute on Chronic Diastolic Heart Failure Acute on Chronic Renal Failure h/o PPM BPH - ABX - f/u cultures - taper FiO2 to keep Spo2 >90% - Medrol - inhaled bronchodilators - DVT prophylaxis - Wean HFOT Dr Amos
--- NOTE | 2019-03-20 11:28 | PN ---
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 Pt breathing comfortably, verbal, appropriate. Pt denies difficulty with swallowing. Overtly, no signs of aspiration.
[2019-03-20] MEDS: OMEGA-3 ACID ETHYL ESTERS (FATTY-ACIDS) 1 GM CAPSULE (FP) PO SCH (13:36)
--- NOTE | 2019-03-20 15:17 | PN ---
Physical Exam: SUBJECTIVE: Patient seen and examined. sitting in chair, eating breakfast. in no acute distress. daughter at bedside. 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 Initially was being treated at [place] for shortness of breath, cough and wheezing and transferred to [facility] on 03/17/2019 for acute respiratory failure requiring high flow oxygen. imaging: chest ct 03/17/2019 (non contrast): 1. bilateral lower lobe, right upper and middle lobe air space disease with consolidation consistent with pneumonia (2) no pneumothorax or pleural effusion (3) borderline over distention of the gallbladder with a small stone without wall thickening. Vital Signs Period Temp Pulse Resp BP Sys/Richardson Pulse Ox Last 24 Hr 98 F-98.2 F 78-88 - 125-149/73-96 93-95 GENERAL: The patient is awake, alert, and fully oriented, in no acute distress. on high flow 02 sats are between 91-92% at rest. HEAD: Normal with no signs of trauma. EYES: PERRL, extraocular movements intact, sclera anicteric, conjunctiva clear. No ptosis. ENT: Ears normal, nares patent, oropharynx clear without exudates, dry mucous membranes. NECK: Trachea midline, full range of motion, supple. LUNGS: anterior lungs diminished/clear mostly. posteriorly with scattered rhonchi, but improved since yesterday HEART: tachycardia on monitor, irregular rate ABDOMEN: Soft, nontender, distended, normoactive bowel sounds, no guarding EXTREMITIES: +2 bilateral lowe ext edema. NEUROLOGICAL:Normal speech, gait not observed. PSYCH: Normal mood, normal affect. SKIN: Warm, dry, normal turgor, no rashes or lesions noted Laboratory Results - last 24 hr 03/18/19 03/18/19 03/18/19 05:15 05:15 05:15 WBC RBC Hgb Hct MCV MCH MCHC RDW Plt Count MPV Absolute Neuts (auto) Neutrophils % Neutrophils % (Manual) Band Neutrophils % Lymphocytes % Lymphocytes % (Manual) Monocytes % Monocytes % (Manual) Eosinophils % Eosinophils % (Manual) Basophils % Basophils % (Manual) Myelocytes % (Man) Promyelocytes % (Man) Blast Cells % (Manual) Nucleated RBC % Metamyelocytes Hypochromia Platelet Estimate Platelet Comment Polychromasia Poikilocytosis Anisocytosis Microcytosis Macrocytosis Spherocytes Target Cells Tear Drop Cells Sodium Potassium Chloride Carbon Dioxide Anion Gap BUN Creatinine Est GFR (CKD-EPI)AfAm Est GFR (CKD-EPI)NonAf Random Glucose Calcium Magnesium Total Bilirubin AST ALT Alkaline Phosphatase Total Protein Total Protein (PEP) 5.2 L Albumin Albumin (PEP) 2.3 L Globulin 2.9 Albumin/Globulin Ratio 0.8 Beta Globulins 0.8 VINICIUS M-Adriano 0.2 H Double Strand DNA Ab 1 Free [place] LC, Quant 47.2 H Free Lambda LC, Quant 45.3 H Free [place]/Lambda Ratio 1.04 03/20/19 03/20/19 05:49 05:49 WBC 25.7 H RBC 4.76 Hgb 14.0 Hct 42.1 MCV 88.4 MCH 29.4 MCHC 33.2 RDW 15.9 Plt Count 446 H MPV 8.2 Absolute Neuts (auto) 23.5 H Neutrophils % 91.4 H Neutrophils % (Manual) 86.3 H Band Neutrophils % 2.9 Lymphocytes % 4.0 L Lymphocytes % (Manual) 1.0 L D Monocytes % 4.4 D Monocytes % (Manual) 2 L D Eosinophils % 0.1 D Eosinophils % (Manual) 0.0 Basophils % 0.1 Basophils % (Manual) 0.0 Myelocytes % (Man) 2 D Promyelocytes % (Man) 0 Blast Cells % (Manual) 0 Nucleated RBC % 0 Metamyelocytes 1 D Hypochromia 0 Platelet Estimate Normal Platelet Comment Present Polychromasia 0 Poikilocytosis 1+ Anisocytosis 1+ Microcytosis 1+ Macrocytosis 0 Spherocytes 1+ Target Cells 1+ Tear Drop Cells 1+ Sodium 140 Potassium 4.4 Chloride 106 Carbon Dioxide 25 Anion Gap 8 BUN 93.4 H Creatinine 2.2 H Est GFR (CKD-EPI)AfAm 30.74 Est GFR (CKD-EPI)NonAf 26.52 Random Glucose 108 H Calcium 9.5 Magnesium 2.6 H Total Bilirubin 0.9 AST 23 ALT 39 Alkaline Phosphatase 89 Total Protein 5.7 L Total Protein (PEP) Albumin 2.4 L Albumin (PEP) Globulin Albumin/Globulin Ratio Beta Globulins VINICIUS M-Adriano Double Strand DNA Ab Free [place] LC, Quant Free Lambda LC, Quant Free [place]/Lambda Ratio Active Medications Generic Name Dose Route Start Last Admin Trade Name Freq PRN Reason Stop Dose Admin Albuterol/Ipratropium 1 amp 03/20/19 07:05 Duoneb - NEB Q4H PRN SHORTNESS OF BREATH Albuterol/Ipratropium 1 amp 03/20/19 08:00 03/20/19 12:10 Duoneb - NEB 1 amp RQID MANUEL Administration Aspirin 81 mg 03/20/19 10:00 03/20/19 09:27 Ecotrin - PO 81 mg DAILY MANUEL Administration Docusate Sodium 100 mg 03/20/19 14:00 03/20/19 13:36 Colace - PO 100 mg TID MANUEL Administration Finasteride 5 mg 03/20/19 10:00 03/20/19 09:27 Proscar - PO 5 mg DAILY [facility]UEL Administration Heparin Sodium (Porcine) 5,000 unit 03/20/19 10:00 03/20/19 09:27 Heparin - SQ 5,000 unit BID MANUEL Administration Melatonin 5 mg 03/20/19 22:00 Melatonin PO HS PRN INSOMNIA Methylprednisolone Sodium Succinate 40 mg 03/20/19 10:00 03/20/19 09:26 Solu-Medrol - IVPUSH 40 mg Q8H-IV MANUEL Administration Metoprolol Succinate 25 mg 03/20/19 10:00 03/20/19 09:26 Toprol Xl - PO 25 mg DAILY [facility] Administration Multivitamins/Minerals 1 each 03/20/19 10:00 03/20/19 09:26 Theragran-M PO 1 each DAILY [facility] Administration Ytuyh-0-Mamw Ethyl Esters 1 gm 03/20/19 10:15 03/20/19 13:36 Lovaza - PO 1 gm DAILY [facility] Administration Senna 2 tab 03/20/19 22:00 Senna - PO HS PRN CONSTIPATION Tamsulosin HCl 0.8 mg 03/20/19 08:30 03/20/19 09:26 Flomax - PO 0.8 mg DAILY@0830 [facility]EL Administration ASSESSMENT/PLAN: Problem List - Problems (1) Pneumonia Assessment/Plan: per chest ct: bilateral lower lobe and right upper and mid lobe pneumonia. airway support with high flow oxygen to maintain sats above 92%. on duonebs. on zosyn per ID Code(s): J18.9 - PNEUMONIA, UNSPECIFIED ORGANISM Qualifiers: Pneumonia type: due to unspecified organism Laterality: right Lung location: unspecified part of lung Qualified Code(s): J18.9 - Pneumonia, unspecified organism (2) Acute respiratory failure Assessment/Plan: on high flow oxygen and continuous pulse ox monitoring awake and alert with mild conversational dyspnea pulmonary following, notes reviewed and appreciated. abg reviewed Code(s): J96.00 - ACUTE RESPIRATORY FAILURE, UNSP W HYPOXIA OR HYPERCAPNIA (3) Shortness of breath Assessment/Plan: bilateral pneumonia on ct imaging. on high flow oxygen with continuous pulse ox monitoring Code(s): R06.02 - SHORTNESS OF BREATH (4) VARSHA (acute kidney injury) Code(s): N17.9 - ACUTE KIDNEY FAILURE, UNSPECIFIED (5) BPH (benign prostatic hyperplasia) Assessment/Plan: issa removed on proscar and flomax 0.8 Code(s): N40.0 - BENIGN PROSTATIC HYPERPLASIA WITHOUT LOWER URINRY TRACT SYMP (6) Elevated serum creatinine Code(s): R79.89 - OTHER SPECIFIED ABNORMAL FINDINGS OF BLOOD CHEMISTRY (7) Elevated troponin Code(s): R79.89 - OTHER SPECIFIED ABNORMAL FINDINGS OF BLOOD CHEMISTRY (8) HTN (hypertension) Code(s): I10 - ESSENTIAL (PRIMARY) HYPERTENSION (9) Hypoxia Code(s): R09.02 - HYPOXEMIA (10) Status post biventricular pacemaker Assessment/Plan: placed in 2019, well healed surgical scar placed for high grade av block Code(s): Z95.0 - PRESENCE OF CARDIAC PACEMAKER (11) Acute on chronic diastolic (congestive) heart failure Assessment/Plan: monitor intake and output with daily weights lasix per renal Code(s): I50.33 - ACUTE ON CHRONIC DIASTOLIC (CONGESTIVE) HEART FAILURE (12) Requires aspiration precautions Assessment/Plan: maintain aspiration precautions until respiratory status improves Code(s): Z91.89 - OTH PERSONAL RISK FACTORS, NOT ELSEWHERE CLASSIFIED (13) DVT prophylaxis Assessment/Plan: heparin bid discontinued after episode of hematuria Code(s): Z29.9 - ENCOUNTER FOR PROPHYLACTIC MEASURES, UNSPECIFIED (14) Prophylactic measure Assessment/Plan: fen low salt diet monitor electrolytes daily add supplements aspiration precautions full code Code(s): Z29.9 - ENCOUNTER FOR PROPHYLACTIC MEASURES, UNSPECIFIED Visit type - Emergency Visit Emergency Visit: Yes ED Registration Date: 03/15/19 Care time: The patient presented to the Emergency Department on the above date and was hospitalized for further evaluation of their emergent condition. - New Patient This patient is new to me today: No - Critical Care Critical Care patient: No - Discharge Referral Referred to [facility] No
--- NOTE | 2019-03-20 17:12 | PN ---
Progress Note, Physician History of Present Illness: Pt seen and examined at bedside. He is out of bed to chair. He denies shortness of breath. - Current Medication List Current Medications: Active Medications Albuterol/Ipratropium (Duoneb -) 1 amp NEB Q4H PRN PRN Reason: SHORTNESS OF BREATH Albuterol/Ipratropium (Duoneb -) 1 amp NEB RQID [facility] Last Admin: 03/20/19 16:43 Dose: 1 amp Aspirin (Ecotrin -) 81 mg PO DAILY [facility] Last Admin: 03/20/19 09:27 Dose: 81 mg Docusate Sodium (Colace -) 100 mg PO TID [facility] Last Admin: 03/20/19 13:36 Dose: 100 mg Finasteride (Proscar -) 5 mg PO DAILY [facility] Last Admin: 03/20/19 09:27 Dose: 5 mg Melatonin (Melatonin) 5 mg PO HS PRN PRN Reason: INSOMNIA Methylprednisolone Sodium Succinate (Solu-Medrol -) 40 mg IVPUSH Q8H-IV [facility] Last Admin: 03/20/19 17:03 Dose: 40 mg Metoprolol Succinate (Toprol Xl -) 25 mg PO DAILY [facility] Last Admin: 03/20/19 09:26 Dose: 25 mg Multivitamins/Minerals (Theragran-M) 1 each PO DAILY [facility] Last Admin: 03/20/19 09:26 Dose: 1 each Mhuhj-6-Yccj Ethyl Esters (Lovaza -) 1 gm PO DAILY [facility] Last Admin: 03/20/19 13:36 Dose: 1 gm Senna (Senna -) 2 tab PO HS PRN PRN Reason: CONSTIPATION Tamsulosin HCl (Flomax -) 0.8 mg PO DAILY@0830 [facility] Last Admin: 03/20/19 09:26 Dose: 0.8 mg - Objective Vital Signs: Vital Signs Temperature 98.2 F 03/20/19 14:59 Pulse Rate 79 03/20/19 14:59 Respiratory Rate 22 H 03/20/19 14:59 Blood Pressure 125/76 03/20/19 14:59 O2 Sat by Pulse Oximetry (%) 95 03/20/19 13:00 Constitutional: Yes: Calm Eyes: Yes: Conjunctiva Clear HENT: Yes: Atraumatic Neck: Yes: Supple Cardiovascular: Yes: S1, S2 Respiratory: Yes: On Nasal O2 Gastrointestinal: Yes: Soft Genitourinary: Yes: WNL Musculoskeletal: Yes: WNL Edema: Yes Edema: LLE: Trace, RLE: Trace Neurological: Yes: Oriented Psychiatric: Yes: Oriented Labs: CBC, BMP 03/20/19 05:49 03/20/19 05:49 Problem List - Problems (1) VARSHA (acute kidney injury) Code(s): N17.9 - ACUTE KIDNEY FAILURE, UNSPECIFIED (2) BPH (benign prostatic hyperplasia) Code(s): N40.0 - BENIGN PROSTATIC HYPERPLASIA WITHOUT LOWER URINRY TRACT SYMP (3) Elevated serum creatinine Code(s): R79.89 - OTHER SPECIFIED ABNORMAL FINDINGS OF BLOOD CHEMISTRY Assessment/Plan Current Medications Generic Name Dose Route Start Last Admin Trade Name Freq PRN Reason Stop Dose Admin Albuterol/Ipratropium 1 amp 03/20/19 07:05 Duoneb - NEB Q4H PRN SHORTNESS OF BREATH Albuterol/Ipratropium 1 amp 03/20/19 08:00 03/20/19 16:43 Duoneb - NEB 1 amp RQID [facility]UEL Administration Aspirin 81 mg 03/20/19 10:00 03/20/19 09:27 Ecotrin - PO 81 mg DAILY [facility] Administration Docusate Sodium 100 mg 03/20/19 14:00 03/20/19 13:36 Colace - PO 100 mg TID [facility] Administration Finasteride 5 mg 03/20/19 10:00 03/20/19 09:27 Proscar - PO 5 mg DAILY [facility] Administration Melatonin 5 mg 03/20/19 22:00 Melatonin PO HS PRN INSOMNIA Methylprednisolone Sodium Succinate 40 mg 03/20/19 10:00 03/20/19 17:03 Solu-Medrol - IVPUSH 40 mg Q8H-IV [facility] Administration Metoprolol Succinate 25 mg 03/20/19 10:00 03/20/19 09:26 Toprol Xl - PO 25 mg DAILY [facility] Administration Multivitamins/Minerals 1 each 03/20/19 10:00 03/20/19 09:26 Theragran-M PO 1 each DAILY [facility] Administration Aalpk-8-Frct Ethyl Esters 1 gm 03/20/19 10:15 03/20/19 13:36 Lovaza - PO 1 gm DAILY [facility] Administration Senna 2 tab 03/20/19 22:00 Senna - PO HS PRN CONSTIPATION Tamsulosin HCl 0.8 mg 03/20/19 08:30 03/20/19 09:26 Flomax - PO 0.8 mg DAILY@0830 [facility] Administration Laboratory Tests 03/18/19 03/18/19 03/18/19 05:15 05:15 05:15 VINICIUS M-Adriano 0.2 H MICHAEL Screen Pending c-ANCA Pending Proteinase 3 (PR3) Pending p-ANCA Pending Atypical p-ANCA Pending Myeloperoxidase Ab Pending Double Strand DNA Ab 1 Glomerular Base Memb Ab Pending Free [place] LC, Quant 47.2 H Free Lambda LC, Quant 45.3 H Free [place]/Lambda Ratio 1.04 Impression 1. VARSHA 2. PNA 3. hx HTN 4. BPH 5. hx PPM 6. sepsis Plan - renal function continues to improve - repeat labs in am - thiazide on hold - monitor wbc - follow serologies
[2019-03-20] MEDS ORDERED: ACETAMINOPHEN 325 MG TABLET (FP) PO PRN (17:42)
--- NOTE | 2019-03-20 18:47 | PN ---
Progress Note, Physician History of Present Illness: TRANSFERRED TO [facility] IN CHAIR AWAKE, RESPONSIVE BREATHING NON-LABORED ON HIGH FLOW O2 LEUKOCYTOSIS PERSISTS LEGIONELLA/ PNEUMOCOCCAL AG (-) SPUTUM C/S NORMAL MAICOL - Current Medication List Current Medications: Active Medications Acetaminophen (Tylenol -) 650 mg PO Q6H PRN PRN Reason: PAIN LEVEL 6-10 Last Admin: 03/20/19 17:51 Dose: 650 mg Albuterol/Ipratropium (Duoneb -) 1 amp NEB Q4H PRN PRN Reason: SHORTNESS OF BREATH Albuterol/Ipratropium (Duoneb -) 1 amp NEB RQID [facility] Last Admin: 03/20/19 16:43 Dose: 1 amp Aspirin (Ecotrin -) 81 mg PO DAILY [facility] Last Admin: 03/20/19 09:27 Dose: 81 mg Docusate Sodium (Colace -) 100 mg PO TID [facility] Last Admin: 03/20/19 13:36 Dose: 100 mg Finasteride (Proscar -) 5 mg PO DAILY [facility] Last Admin: 03/20/19 09:27 Dose: 5 mg Melatonin (Melatonin) 5 mg PO HS PRN PRN Reason: INSOMNIA Methyl Salicylate (Gary-Ruano -) 1 applic TP DAILY [facility] Methylprednisolone Sodium Succinate (Solu-Medrol -) 40 mg IVPUSH Q8H-IV [facility] Last Admin: 03/20/19 17:03 Dose: 40 mg Metoprolol Succinate (Toprol Xl -) 25 mg PO DAILY [facility] Last Admin: 03/20/19 09:26 Dose: 25 mg Multivitamins/Minerals (Theragran-M) 1 each PO DAILY [facility] Last Admin: 03/20/19 09:26 Dose: 1 each Dllwe-2-Yxmg Ethyl Esters (Lovaza -) 1 gm PO DAILY [facility] Last Admin: 03/20/19 13:36 Dose: 1 gm Senna (Senna -) 2 tab PO HS PRN PRN Reason: CONSTIPATION Tamsulosin HCl (Flomax -) 0.8 mg PO DAILY@0830 [facility] Last Admin: 03/20/19 09:26 Dose: 0.8 mg - Objective Vital Signs: Vital Signs Temperature 98.2 F 03/20/19 14:59 Pulse Rate 79 03/20/19 14:59 Respiratory Rate 22 H 03/20/19 14:59 Blood Pressure 125/76 03/20/19 14:59 O2 Sat by Pulse Oximetry (%) 95 03/20/19 13:00 Constitutional: Yes: No Distress, Obese Cardiovascular: Yes: Regular Rate and Rhythm, S1, S2 Respiratory: Yes: Other (RALES R BASE) Gastrointestinal: Yes: Normal Bowel Sounds, Soft, Abdomen, Obese Labs: CBC, BMP 03/20/19 05:49 03/20/19 05:49 Assessment/Plan PNEUMONIA R/O SEPSIS SECONDARY TO PNEUMONIA LEUKOCYTOSIS AZOTEMIA S/P PPM CONTINUE EMPIRIC ZOSYN
[2019-03-20 19:12] LABS: URINE APPEARANCE Cloudy; URINE BILIRUBIN 2+ (NEGATIVE); URINE COLOR Red; URINE GLUCOSE (UA) Negative (NEGATIVE); URINE KETONE Trace (NEGATIVE); URINE LEUK ESTERASE Trace (NEGATIVE); URINE NITRITE Positive (NEGATIVE); URINE PROTEIN 2+ (NEGATIVE)
[2019-03-20 19:17] LABS: URINE BACTERIA MOD /hpf (NEGATIVE); URINE RBC >100 /hpf (0-4)
[2019-03-20] MEDS: METHYL SALICYLATE/MENTHOL OINT 30 GM TUBE TP SCH (21:32)
[2019-03-20] MEDS: MELATONIN 5 MG TABLETS PO PRN (21:57)
[2019-03-20] MEDS ORDERED: SENNOSIDES 8.6MG TABLET (FP) PO PRN (22:00)
[2019-03-21] MEDS: methylPREDNISolone NA SUCC 40 MG/1 ML VIAL IVPUSH SCH ×4 (01:12→17:02)
[2019-03-21] MEDS: DOCUSATE SODIUM 100 MG CAPSULE (FP) PO SCH ×5 (05:28→22:13)
[2019-03-21 07:53] LABS: BASO % 0.4 % (0-2.0); EOS % 1.6 % (0-4.5); HEMATOCRIT 42.4 % (35.4-49); HEMOGLOBIN 14.1 GM/dL (11.7-16.9); LYMPH % 4.5 % (8-40); MCH 29.3 pg (25.7-33.7); MCHC 33.2 g/dl (32.0-35.9); MEAN CELL VOLUME 88.1 fl (80-96); MEAN PLT VOLUME 8.2 fl (7.5-11.1); MONO % 4.1 % (3.8-10.2); NEUT % 89.4 % (42.8-82.8); PLATELET COUNT 447 K/MM3 (134-434); RBC 4.81 M/mm3 (4.00-5.60); RDW 15.8 % (11.9-15.9); WHITE BLOOD COUNT 23.3 K/mm3 (4.0-10.0)
[2019-03-21] MEDS ORDERED: PIPERACILLIN/TAZOB 2.25 GM 2.25 GM in DEXTROSE 5%-WATER - 50 ML IVPB SCH (08:00)
[2019-03-21] MEDS: ALBUTEROL SO4 2.5/IPRATROPIUM 0.5 INH SOL 3 ML VIAL.NEB. NEB SCH ×4 (08:20→20:40)
[2019-03-21 09:10] LABS: ALBUMIN 2.6 g/dl (3.4-5.0); BILIRUBIN,TOTAL 0.8 mg/dL (0.2-1); BLOOD UREA NITROGEN 85.1 mg/dL (7-18); CALCIUM 9.1 mg/dL (8.5-10.1); MAGNESIUM 2.5 mg/dL (1.8-2.4); POTASSIUM 4.7 mmol/L (3.5-5.1); TOT PROT 5.6 g/dl (6.4-8.2)
--- NOTE | 2019-03-21 09:13 | PN ---
Progress Note, Physician Chief Complaint: continues to feel improved. TELE: SR, 1st degree AV block, PVCs, rare couplets. No CP, no palps, no SOB beyond baseline. - Current Medication List Current Medications: Active Medications Acetaminophen (Tylenol -) 650 mg PO Q6H PRN PRN Reason: PAIN LEVEL 6-10 Last Admin: 03/20/19 17:51 Dose: 650 mg Albuterol/Ipratropium (Duoneb -) 1 amp NEB Q4H PRN PRN Reason: SHORTNESS OF BREATH Albuterol/Ipratropium (Duoneb -) 1 amp NEB RQID [facility] Last Admin: 03/21/19 08:20 Dose: 1 amp Aspirin (Ecotrin -) 81 mg PO DAILY [facility] Last Admin: 03/20/19 09:27 Dose: 81 mg Docusate Sodium (Colace -) 100 mg PO TID [facility] Last Admin: 03/21/19 05:28 Dose: Not Given Finasteride (Proscar -) 5 mg PO DAILY [facility] Last Admin: 03/20/19 09:27 Dose: 5 mg Piperacillin Sod/Tazobactam (Sod 2.25 gm/ Dextrose) 50 mls @ 100 mls/hr IVPB Q6H-IV [facility]UEL; Protocol Melatonin (Melatonin) 5 mg PO HS PRN PRN Reason: INSOMNIA Last Admin: 03/20/19 21:57 Dose: 5 mg Methyl Salicylate (Gary-Ruano -) 1 applic TP DAILY [facility] Last Admin: 03/20/19 21:32 Dose: 1 applic Methylprednisolone Sodium Succinate (Solu-Medrol -) 40 mg IVPUSH Q8H-IV [facility] Last Admin: 03/21/19 01:12 Dose: 40 mg Metoprolol Succinate (Toprol Xl -) 25 mg PO DAILY [facility] Last Admin: 03/20/19 09:26 Dose: 25 mg Multivitamins/Minerals (Theragran-M) 1 each PO DAILY [facility] Last Admin: 03/20/19 09:26 Dose: 1 each Gsgbn-4-Nqsz Ethyl Esters (Lovaza -) 1 gm PO DAILY [facility] Last Admin: 03/20/19 13:36 Dose: 1 gm Senna (Senna -) 2 tab PO HS PRN PRN Reason: CONSTIPATION Last Admin: 03/20/19 21:28 Dose: 2 tab Tamsulosin HCl (Flomax -) 0.8 mg PO DAILY@0830 [facility] Last Admin: 03/20/19 09:26 Dose: 0.8 mg - Objective Vital Signs: Vital Signs Temperature 97.9 F 03/21/19 06:37 Pulse Rate 77 03/21/19 06:37 Respiratory Rate 22 H 03/21/19 06:37 Blood Pressure 146/96 03/21/19 06:37 O2 Sat by Pulse Oximetry (%) 96 03/20/19 21:00 Constitutional: Yes: No Distress Cardiovascular: Yes: Regular Rate and Rhythm Respiratory: Yes: Rhonchi (no wheezing) Gastrointestinal: Yes: Soft, Abdomen, Obese Edema: No Neurological: Yes: Alert, Oriented Labs: CBC, BMP 03/21/19 06:46 03/21/19 06:46 Microbiology 03/15/19 17:47 Blood - Peripheral Venous Blood Culture - Final NO GROWTH AFTER 5 DAYS INCUBATION 03/15/19 17:47 Blood - Peripheral Venous Blood Culture - Final NO GROWTH AFTER 5 DAYS INCUBATION Laboratory Tests 03/21/19 03/21/19 06:46 06:46 WBC 23.3 H Hgb 14.1 Plt Count 447 H Sodium 139 Potassium 4.7 BUN 85.1 H Creatinine 2.0 H Random Glucose 117 H Magnesium 2.5 H Total Bilirubin 0.8 AST 25 ALT 44 Alkaline Phosphatase 82 - ....Imaging EKG: Image Reviewed Assessment/Plan Echo: Other (Normal EF, mild to moderately dilated RV/ Mild to moderately reduced RVEF) Ejection Fraction %: LVEF > or = 40 % Assessment/Plan IMP: 1. Acute hypoxemic respiratory failure, requiring 40% FIO2 2. RML/RLL PNA 3. Acute on chronic diastolic CHF, mild exacerbation 4. Acute on chronic renal failure 5. VPCS/ NSVT 6. 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 RV dysfunction (acute vs chronic?) REC: 1. Monitoring on tele 2. Chest CT c/w PNA. Supp O2/ abx as per PMD and ID 3. F/u cultures/ abx and steroids as per primary medical and critical care team. 4. Appears euvolemic, holding lasix. Creat improving 5. For NSVT: Keep K+ at 4, Mg2+ 2/Continue Metoprolol/ LVEF normal. Pt reports recent nuclear stress prior to PPM that was "ok"- will need to obtain reports from Dr. Jose Hardy (outpatient quality assurance). 6. RV dysfx likely due to acute hypoxia secondary to PNA; repeat echo as outpatient once recovered to see if RV fx improves 7. DVT prophylaxis.
[2019-03-21] MEDS: TAMSULOSIN HCL 0.4 MG CAP PO SCH (09:33)
[2019-03-21] MEDS: FINASTERIDE 5 MG TABLET (FP) PO SCH (10:31)
[2019-03-21] MEDS: metoPROLOL SUCCINATE 25 MG TAB.SR.24H (FP) PO SCH (10:31)
[2019-03-21] MEDS: OMEGA-3 ACID ETHYL ESTERS (FATTY-ACIDS) 1 GM CAPSULE (FP) PO SCH (10:31)
[2019-03-21] MEDS: PIPERACILLIN/TAZOB 2.25 GM 2.25 GM in DEXTROSE 5%-WATER - 50 ML IVPB SCH ×3 (10:32→21:53)
[2019-03-21] MEDS: METHYL SALICYLATE/MENTHOL OINT 30 GM TUBE TP SCH (10:32)
[2019-03-21] MEDS: ASPIRIN COATED 81 MG TABLET.EC PO SCH (10:32)
[2019-03-21] MEDS: MULTIVITAMINS THER W-MINERALS COMBO TABLET (FP) PO SCH (10:32)
[2019-03-21] MEDS ORDERED: PIPERACILLIN/TAZOBACTAM 2.25 GM VIAL IVPB ONE ×3 (10:34→21:38)
[2019-03-21] MEDS ORDERED: DEXTROSE 5%-WATER - 50 ML IVPB ONE ×3 (10:34→21:38)
--- NOTE | 2019-03-21 13:01 | PN ---
Physical Exam: SUBJECTIVE: Patient seen and examined. awake, alert sitting in chair. feels well, denies any pain or shortness of breath. feels as his breathing is improving. 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 Initially was being treated at [facility] for shortness of breath, cough and wheezing and transferred to [facility] on 03/17/2019 for acute respiratory failure requiring high flow oxygen. imaging: chest ct 03/17/2019 (non contrast): 1. bilateral lower lobe, right upper and middle lobe air space disease with consolidation consistent with pneumonia (2) no pneumothorax or pleural effusion (3) borderline over distention of the gallbladder with a small stone without wall thickening. Vital Signs Period Temp Pulse Resp BP Sys/Richardson Pulse Ox Last 24 Hr 97.5 F-98.2 F 75-93 18-22 125-146/69-99 96 GENERAL: The patient is awake, alert, and fully oriented, in no acute distress. on high flow 02 sats are between 91-92% at rest. HEAD: Normal with no signs of trauma. EYES: PERRL, extraocular movements intact, sclera anicteric, conjunctiva clear. No ptosis. ENT: Ears normal, nares patent, oropharynx clear without exudates, dry mucous membranes. NECK: Trachea midline, full range of motion, supple. LUNGS: anterior lungs diminished/clear mostly. right lung with fine crackles on mid lobe, left lung diminished at base. on high flow HEART: tachycardia on monitor, irregular rate ABDOMEN: Soft, nontender, distended, normoactive bowel sounds, no guarding EXTREMITIES: +2 bilateral lowe ext edema. NEUROLOGICAL:Normal speech, gait not observed. PSYCH: Normal mood, normal affect. SKIN: Warm, dry, normal turgor, no rashes or lesions noted Laboratory Results - last 24 hr 03/18/19 03/20/19 03/21/19 05:15 18:45 06:46 WBC RBC Hgb Hct MCV MCH MCHC RDW Plt Count MPV Absolute Neuts (auto) Neutrophils % Lymphocytes % Monocytes % Eosinophils % Basophils % Nucleated RBC % Sodium 139 Potassium 4.7 Chloride 108 H Carbon Dioxide 23 Anion Gap 9 BUN 85.1 H Creatinine 2.0 H Est GFR (CKD-EPI)AfAm 34.50 Est GFR (CKD-EPI)NonAf 29.76 Random Glucose 117 H Calcium 9.1 Magnesium 2.5 H Total Bilirubin 0.8 AST 25 ALT 44 Alkaline Phosphatase 82 Total Protein 5.6 L Albumin 2.6 L Urine Color Red Urine Appearance Cloudy Urine pH 5.0 Ur Specific [place] 1.015 Urine Protein 2+ H Urine Glucose (UA) Negative Urine Ketones Trace Urine Blood 3+ H Urine Nitrite Positive Urine Bilirubin 2+ H Urine Urobilinogen 1.0 Ur Leukocyte Esterase Trace Urine WBC (Auto) 10-15 Urine RBC (Auto) >100 U Pathogenic Cast Auto None Urine Bacteria (Auto) Mod MICHAEL Screen Negative Double Strand DNA Ab 1 03/21/19 06:46 WBC 23.3 H RBC 4.81 Hgb 14.1 Hct 42.4 MCV 88.1 MCH 29.3 MCHC 33.2 RDW 15.8 Plt Count 447 H MPV 8.2 Absolute Neuts (auto) 20.9 H Neutrophils % 89.4 H Lymphocytes % 4.5 L Monocytes % 4.1 Eosinophils % 1.6 D Basophils % 0.4 D Nucleated RBC % 0 Sodium Potassium Chloride Carbon Dioxide Anion Gap BUN Creatinine Est GFR (CKD-EPI)AfAm Est GFR (CKD-EPI)NonAf Random Glucose Calcium Magnesium Total Bilirubin AST ALT Alkaline Phosphatase Total Protein Albumin Urine Color Urine Appearance Urine pH Ur Specific [place] Urine Protein Urine Glucose (UA) Urine Ketones Urine Blood Urine Nitrite Urine Bilirubin Urine Urobilinogen Ur Leukocyte Esterase Urine WBC (Auto) Urine RBC (Auto) U Pathogenic Cast Auto Urine Bacteria (Auto) MICHAEL Screen Double Strand DNA Ab Active Medications Generic Name Dose Route Start Last Admin Trade Name Diegoq PRN Reason Stop Dose Admin Acetaminophen 650 mg 03/20/19 17:42 03/20/19 17:51 Tylenol - PO 650 mg Q6H PRN Administration PAIN LEVEL 6-10 Albuterol/Ipratropium 1 amp 03/20/19 07:05 Duoneb - NEB Q4H PRN SHORTNESS OF BREATH Albuterol/Ipratropium 1 amp 03/20/19 08:00 03/21/19 11:20 Duoneb - NEB 1 amp RQID MANUEL Administration Aspirin 81 mg 03/20/19 10:00 03/21/19 10:32 Ecotrin - PO 81 mg DAILY MANUEL Administration Docusate Sodium 100 mg 03/20/19 14:00 03/21/19 05:28 Colace - PO Not Given TID MANUEL Finasteride 5 mg 03/20/19 10:00 03/21/19 10:31 Proscar - PO 5 mg DAILY MANUEL Administration Piperacillin Sod/Tazobactam 50 mls @ 100 mls/hr 03/21/19 08:13 03/21/19 10:32 Sod 2.25 gm/ Dextrose IVPB 100 mls/hr Q6H-IV MANUEL Administration Protocol Melatonin 5 mg 03/20/19 22:00 03/20/19 21:57 Melatonin PO 5 mg HS PRN Administration INSOMNIA Methyl Salicylate 1 applic 03/20/19 17:45 03/21/19 10:32 Gary-Ruano - TP 1 applic DAILY MANUEL Administration Methylprednisolone Sodium Succinate 40 mg 03/20/19 10:00 03/21/19 10:31 Solu-Medrol - IVPUSH 40 mg Q8H-IV MANUEL Administration Metoprolol Succinate 25 mg 03/20/19 10:00 03/21/19 10:31 Toprol Xl - PO 25 mg DAILY MANUEL Administration Multivitamins/Minerals 1 each 03/20/19 10:00 03/21/19 10:32 Theragran-M PO 1 each DAILY MANUEL Administration Jelwt-0-Sayi Ethyl Esters 1 gm 03/20/19 10:15 03/21/19 10:31 Lovaza - PO 1 gm DAILY MANUEL Administration Senna 2 tab 03/20/19 22:00 03/20/19 21:28 Senna - PO 2 tab HS PRN Administration CONSTIPATION Tamsulosin HCl 0.8 mg 03/20/19 08:30 03/21/19 09:33 Flomax - PO 0.8 mg DAILY@0830 MANUEL Administration ASSESSMENT/PLAN: Problem List - Problems (1) Pneumonia Assessment/Plan: per chest ct: bilateral lower lobe and right upper and mid lobe pneumonia. airway support with high flow oxygen to maintain sats above 92%. on duonebs. on zosyn per ID wean off oxygen as tolerates Code(s): J18.9 - PNEUMONIA, UNSPECIFIED ORGANISM Qualifiers: Pneumonia type: due to unspecified organism Laterality: right Lung location: unspecified part of lung Qualified Code(s): J18.9 - Pneumonia, unspecified organism (2) Acute respiratory failure Assessment/Plan: on high flow oxygen and continuous pulse ox monitoring awake and alert with mild conversational dyspnea pulmonary following, notes reviewed and appreciated. abg reviewed Code(s): J96.00 - ACUTE RESPIRATORY FAILURE, UNSP W HYPOXIA OR HYPERCAPNIA (3) Shortness of breath Assessment/Plan: bilateral pneumonia on ct imaging. on high flow oxygen with continuous pulse ox monitoring Code(s): R06.02 - SHORTNESS OF BREATH (4) VARSHA (acute kidney injury) Code(s): N17.9 - ACUTE KIDNEY FAILURE, UNSPECIFIED (5) BPH (benign prostatic hyperplasia) Assessment/Plan: issa removed on proscar and flomax 0.8 some hematuria yesterday, now resolved Code(s): N40.0 - BENIGN PROSTATIC HYPERPLASIA WITHOUT LOWER URINRY TRACT SYMP (6) Elevated serum creatinine Assessment/Plan: per renal, hold lasix daily cmp Code(s): R79.89 - OTHER SPECIFIED ABNORMAL FINDINGS OF BLOOD CHEMISTRY (7) Elevated troponin Assessment/Plan: no chest pain, cardiology following Code(s): R79.89 - OTHER SPECIFIED ABNORMAL FINDINGS OF BLOOD CHEMISTRY (8) HTN (hypertension) Code(s): I10 - ESSENTIAL (PRIMARY) HYPERTENSION (9) Hypoxia Code(s): R09.02 - HYPOXEMIA (10) Status post biventricular pacemaker Assessment/Plan: placed in 2019, well healed surgical scar placed for high grade av block Code(s): Z95.0 - PRESENCE OF CARDIAC PACEMAKER (11) Acute on chronic diastolic (congestive) heart failure Assessment/Plan: monitor intake and output with daily weights lasix per renal Code(s): I50.33 - ACUTE ON CHRONIC DIASTOLIC (CONGESTIVE) HEART FAILURE (12) Requires aspiration precautions Assessment/Plan: maintain aspiration precautions until respiratory status improves Code(s): Z91.89 - OTH PERSONAL RISK FACTORS, NOT ELSEWHERE CLASSIFIED (13) DVT prophylaxis Assessment/Plan: heparin bid discontinued after episode of hematuria Code(s): Z29.9 - ENCOUNTER FOR PROPHYLACTIC MEASURES, UNSPECIFIED (14) Prophylactic measure Assessment/Plan: fen low salt diet monitor electrolytes daily add supplements aspiration precautions full code Code(s): Z29.9 - ENCOUNTER FOR PROPHYLACTIC MEASURES, UNSPECIFIED Visit type - Emergency Visit Emergency Visit: Yes ED Registration Date: 03/15/19 Care time: The patient presented to the Emergency Department on the above date and was hospitalized for further evaluation of their emergent condition. - New Patient This patient is new to me today: No - Critical Care Critical Care patient: No - Discharge Referral Referred to [facility] No
[2019-03-21 13:23] LABS: ANISOCYTOSIS 1+; MACROCYTOSIS 0; PLATELET ESTIMATE NORMAL; TARGET CELLS 1+; TEAR DROP CELLS 1+
[2019-03-21] MEDS: MELATONIN 5 MG TABLETS PO PRN (21:52)
[2019-03-22] MEDS ORDERED: DEXTROSE 5%-WATER - 50 ML IVPB ONE ×4 (01:05→20:52)
[2019-03-22] MEDS ORDERED: PIPERACILLIN/TAZOBACTAM 2.25 GM VIAL IVPB ONE ×4 (01:05→20:52)
[2019-03-22] MEDS: methylPREDNISolone NA SUCC 40 MG/1 ML VIAL IVPUSH SCH ×2 (01:09→09:21)
[2019-03-22] MEDS: PIPERACILLIN/TAZOB 2.25 GM 2.25 GM in DEXTROSE 5%-WATER - 50 ML IVPB SCH ×4 (05:33→21:10)
[2019-03-22] MEDS: DOCUSATE SODIUM 100 MG CAPSULE (FP) PO SCH ×3 (05:33→21:09)
[2019-03-22 06:27] LABS: BASO % 0.1 % (0-2.0); EOS % 0.1 % (0-4.5); HEMATOCRIT 42.2 % (35.4-49); HEMOGLOBIN 14.1 GM/dL (11.7-16.9); LYMPH % 4.6 % (8-40); MCH 29.3 pg (25.7-33.7); MCHC 33.3 g/dl (32.0-35.9); MEAN PLT VOLUME 7.6 fl (7.5-11.1); MONO % 3.4 % (3.8-10.2); NEUT % 91.8 % (42.8-82.8); PLATELET COUNT 467 K/MM3 (134-434); RBC 4.79 M/mm3 (4.00-5.60); RDW 15.9 % (11.9-15.9); WHITE BLOOD COUNT 22.5 K/mm3 (4.0-10.0)
[2019-03-22 06:55] LABS: HEP B CORE AB, TOT Negative (Negative)
[2019-03-22 07:31] LABS: ALBUMIN 2.6 g/dl (3.4-5.0); BLOOD UREA NITROGEN 79.4 mg/dL (7-18); CALCIUM 9.4 mg/dL (8.5-10.1); CREATININE 2.1 mg/dL (0.55-1.3); MAGNESIUM 2.5 mg/dL (1.8-2.4); POTASSIUM 5.2 mmol/L (3.5-5.1); TOT PROT 5.8 g/dl (6.4-8.2)
[2019-03-22] MEDS: ALBUTEROL SO4 2.5/IPRATROPIUM 0.5 INH SOL 3 ML VIAL.NEB. NEB SCH ×4 (07:35→20:37)
[2019-03-22] MEDS: METHYL SALICYLATE/MENTHOL OINT 30 GM TUBE TP SCH (09:11)
[2019-03-22] MEDS: FINASTERIDE 5 MG TABLET (FP) PO SCH (09:11)
[2019-03-22] MEDS: MULTIVITAMINS THER W-MINERALS COMBO TABLET (FP) PO SCH (09:11)
[2019-03-22] MEDS: TAMSULOSIN HCL 0.4 MG CAP PO SCH (09:12)
[2019-03-22] MEDS: metoPROLOL SUCCINATE 25 MG TAB.SR.24H (FP) PO SCH (09:12)
[2019-03-22] MEDS: OMEGA-3 ACID ETHYL ESTERS (FATTY-ACIDS) 1 GM CAPSULE (FP) PO SCH (09:12)
[2019-03-22] MEDS: ASPIRIN COATED 81 MG TABLET.EC PO SCH (09:12)
--- NOTE | 2019-03-22 09:18 | PN ---
Progress Note, Physician Chief Complaint: sitting in chair less SOB NO CP, no SOB above baseline Cough improved TELE: NSR, PVCs, rare V couplets - Current Medication List Current Medications: Active Medications Acetaminophen (Tylenol -) 650 mg PO Q6H PRN PRN Reason: PAIN LEVEL 6-10 Last Admin: 03/20/19 17:51 Dose: 650 mg Albuterol/Ipratropium (Duoneb -) 1 amp NEB Q4H PRN PRN Reason: SHORTNESS OF BREATH Albuterol/Ipratropium (Duoneb -) 1 amp NEB RQID [facility] Last Admin: 03/22/19 07:35 Dose: 1 amp Aspirin (Ecotrin -) 81 mg PO DAILY [facility] Last Admin: 03/22/19 09:12 Dose: 81 mg Docusate Sodium (Colace -) 100 mg PO TID [facility] Last Admin: 03/22/19 05:33 Dose: Not Given Finasteride (Proscar -) 5 mg PO DAILY [facility] Last Admin: 03/22/19 09:11 Dose: 5 mg Piperacillin Sod/Tazobactam (Sod 2.25 gm/ Dextrose) 50 mls @ 100 mls/hr IVPB Q6H-IV [facility]; Protocol Last Admin: 03/22/19 09:01 Dose: 100 mls/hr Melatonin (Melatonin) 5 mg PO HS PRN PRN Reason: INSOMNIA Last Admin: 03/21/19 21:52 Dose: 5 mg Methyl Salicylate (Gary-Ruano -) 1 applic TP DAILY [facility] Last Admin: 03/22/19 09:11 Dose: 1 applic Methylprednisolone Sodium Succinate (Solu-Medrol -) 40 mg IVPUSH Q8H-IV [facility] Last Admin: 03/22/19 01:09 Dose: 40 mg Metoprolol Succinate (Toprol Xl -) 25 mg PO DAILY [facility] Last Admin: 03/22/19 09:12 Dose: 25 mg Multivitamins/Minerals (Theragran-M) 1 each PO DAILY [facility] Last Admin: 03/22/19 09:11 Dose: 1 each Vgiun-4-Wcch Ethyl Esters (Lovaza -) 1 gm PO DAILY [facility] Last Admin: 03/22/19 09:12 Dose: 1 gm Senna (Senna -) 2 tab PO HS PRN PRN Reason: CONSTIPATION Last Admin: 03/20/19 21:28 Dose: 2 tab Tamsulosin HCl (Flomax -) 0.8 mg PO DAILY@0830 [facility]UEL Last Admin: 03/22/19 09:12 Dose: 0.8 mg - Objective Vital Signs: Vital Signs Temperature 98.4 F 03/22/19 05:00 Pulse Rate 82 03/22/19 05:00 Respiratory Rate 20 03/22/19 05:00 Blood Pressure 137/88 03/22/19 05:00 O2 Sat by Pulse Oximetry (%) 96 03/20/19 21:00 Constitutional: Yes: No Distress Cardiovascular: Yes: Regular Rate and Rhythm Respiratory: Yes: Rhonchi, Other (right basilar rales.) Gastrointestinal: Yes: Soft, Abdomen, Obese Edema: Yes Edema: LLE: 1+, RLE: 1+ Neurological: Yes: Alert, Oriented Labs: CBC, BMP 03/22/19 05:40 03/22/19 05:40 - ....Imaging EKG: Image Reviewed Assessment/Plan Echo: Other (Normal EF, mild to moderately dilated RV/ Mild to moderately reduced RVEF) Ejection Fraction %: LVEF > or = 40 % Assessment/Plan IMP: 1. Acute hypoxemic respiratory failure, requiring 40% FIO2 2. RML/RLL PNA 3. Acute on chronic diastolic CHF, mild exacerbation 4. Acute on chronic renal failure 5. VPCS/ NSVT 6. 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 RV dysfunction (acute vs chronic?) REC: 1. Monitoring on tele 2. Chest CT c/w PNA. Supp O2/ abx as per PMD and ID 3. F/u cultures/ abx and steroids as per primary medical and critical care team. 4. Mild LE edema, repeat CXR today. Will start PO Lasix. Monitor renal function closely 5. For NSVT: Keep K+ at 4, Mg2+ 2/Continue Metoprolol/ LVEF normal. 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 6. RV dysfx likely due to acute hypoxia secondary to PNA; repeat echo as outpatient once recovered to see if RV fx improves 7. DVT prophylaxis.
[2019-03-22 09:39] LABS: ANISOCYTOSIS 1+; MACROCYTOSIS 0; PLATELET ESTIMATE NORMAL; TEAR DROP CELLS 1+
--- NOTE | 2019-03-22 10:55 | PN ---
Progress Note (short form) - Note Progress Note: RENAL pt seen yesterday but no note written today he feels better sitting and eating has a stinging sensation that occurs after he urinates Last Vital Signs Temp Pulse Resp BP Pulse Ox 98.4 F 82 20 137/88 96 03/22/19 05:00 03/22/19 05:00 03/22/19 05:00 03/22/19 05:00 03/20/19 21:00 lungs crackles at both bases noted cvs s1s2 rr abd soft ext +edema bilat neuro a+ox3 CBC, BMP 03/22/19 05:40 03/22/19 05:40 Current Medications Generic Name Dose Route Start Last Admin Trade Name Freq PRN Reason Stop Dose Admin Acetaminophen 650 mg 03/20/19 17:42 03/20/19 17:51 Tylenol - PO 650 mg Q6H PRN Administration PAIN LEVEL 6-10 Albuterol/Ipratropium 1 amp 03/20/19 07:05 Duoneb - NEB Q4H PRN SHORTNESS OF BREATH Albuterol/Ipratropium 1 amp 03/20/19 08:00 03/22/19 07:35 Duoneb - NEB 1 amp RQID MANUEL Administration Aspirin 81 mg 03/20/19 10:00 03/22/19 09:12 Ecotrin - PO 81 mg DAILY MANUEL Administration Docusate Sodium 100 mg 03/20/19 14:00 03/22/19 05:33 Colace - PO Not Given TID MANUEL Finasteride 5 mg 03/20/19 10:00 03/22/19 09:11 Proscar - PO 5 mg DAILY MANUEL Administration Furosemide 40 mg 03/22/19 10:00 Lasix - PO DAILY MANUEL Heparin Sodium (Porcine) 5,000 unit 03/22/19 10:00 Heparin - SQ BID MANUEL Piperacillin Sod/Tazobactam 50 mls @ 100 mls/hr 03/21/19 08:13 03/22/19 09:01 Sod 2.25 gm/ Dextrose IVPB 100 mls/hr Q6H-IV MANUEL Administration Protocol Melatonin 5 mg 03/20/19 22:00 03/21/19 21:52 Melatonin PO 5 mg HS PRN Administration INSOMNIA Methyl Salicylate 1 applic 03/20/19 17:45 03/22/19 09:11 Gary-Ruano - TP 1 applic DAILY [facility]UEL Administration Methylprednisolone Sodium Succinate 40 mg 03/20/19 10:00 03/22/19 09:21 Solu-Medrol - IVPUSH 40 mg Q8H-IV MANUEL Administration Metoprolol Succinate 25 mg 03/20/19 10:00 03/22/19 09:12 Toprol Xl - PO 25 mg DAILY [facility]UEL Administration Multivitamins/Minerals 1 each 03/20/19 10:00 03/22/19 09:11 Theragran-M PO 1 each DAILY [facility]UEL Administration Aibia-9-Qjsq Ethyl Esters 1 gm 03/20/19 10:15 03/22/19 09:12 Lovaza - PO 1 gm DAILY [facility]UEL Administration Senna 2 tab 03/20/19 22:00 03/20/19 21:28 Senna - PO 2 tab HS PRN Administration CONSTIPATION Tamsulosin HCl 0.8 mg 03/20/19 08:30 03/22/19 09:12 Flomax - PO 0.8 mg DAILY@0830 MANUEL Administration Impression 1. VARSHA- bun remains elevated in part from steroids 2. PNA 3. hx HTN 4. BPH 5. hx PPM 6. sepsis Plan -agree with lasix -monitor renal function -would taper steroids- will cause fluid retention MV
--- NOTE | 2019-03-22 11:36 | PN ---
Progress Note (short form) - Note Progress Note: PULMONARY States breathing better. VSS/AFEBRILE Gen: NAD on HFOT Heart: RRR Lung: scattered basilar rhonchi Abd: soft, nontender Ext: no edema Labs/meds/notes images reviewed ASSESSMENT AND PLAN: Acute Hypoxic Respiratory Failure Pneumonia Acute on Chronic Diastolic Heart Failure Acute on Chronic Renal Failure h/o PPM BPH - ABX - taper FiO2 to keep Spo2 >90% - Medrol changed to prednisone - inhaled bronchodilators - DVT prophylaxis - Wean HFOT to nasal canula o2 Sunny TINAJERO MD
[2019-03-22] MEDS: FUROSEMIDE 40 MG TABLET (FP) PO SCH (13:39)
[2019-03-22] MEDS: HEPARIN NA (PORCINE) 5,000 UNITS/ML 1ML VIAL SQ SCH ×2 (13:39→21:10)
[2019-03-22] MEDS: predniSONE 10 MG TABLET (UD) PO SCH (13:39)
--- NOTE | 2019-03-22 14:10 | PN ---
Physical Exam: SUBJECTIVE: Patient seen and examined. awake, alert sitting in chair. feels well, denies any pain or shortness of breath. feels as his breathing is improving. he is tolerating nasal cannula at 4 liters. 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 Initially was being treated at [facility] for shortness of breath, cough and wheezing and transferred to [facility] on 03/17/2019 for acute respiratory failure requiring high flow oxygen. He is found to have bilateral pneumonia, predominant on right lung and is on IV zosyn. imaging: chest ct 03/17/2019 (non contrast): 1. bilateral lower lobe, right upper and middle lobe air space disease with consolidation consistent with pneumonia (2) no pneumothorax or pleural effusion (3) borderline over distention of the gallbladder with a small stone without wall thickening. Vital Signs Period Temp Pulse Resp BP Sys/Richardson Pulse Ox Last 24 Hr 97.2 F-98.4 F 73-82 20-22 122-149/54-88 GENERAL: The patient is awake, alert, and fully oriented, in no acute distress. on 4 liters of nasal cannula HEAD: Normal with no signs of trauma. EYES: PERRL, extraocular movements intact, sclera anicteric, conjunctiva clear. No ptosis. ENT: Ears normal, nares patent, oropharynx clear without exudates, dry mucous membranes. NECK: Trachea midline, full range of motion, supple. LUNGS: anterior lungs diminished/clear mostly. right lung with fine crackles on mid lobe, left lung diminished at base. HEART: tachycardia on monitor, irregular rate ABDOMEN: Soft, nontender, distended, normoactive bowel sounds, no guarding EXTREMITIES: +2 bilateral lowe ext edema. NEUROLOGICAL:Normal speech, gait not observed. PSYCH: Normal mood, normal affect. SKIN: Warm, dry, normal turgor, no rashes or lesions noted Laboratory Results - last 24 hr 03/18/19 03/22/19 03/22/19 05:15 05:40 05:40 WBC 22.5 H RBC 4.79 Hgb 14.1 Hct 42.2 MCV 88.0 MCH 29.3 MCHC 33.3 RDW 15.9 Plt Count 467 H MPV 7.6 Absolute Neuts (auto) 20.7 H Neutrophils % 91.8 H Neutrophils % (Manual) 79.6 Band Neutrophils % 3.9 Lymphocytes % 4.6 L Lymphocytes % (Manual) 2.9 L D Monocytes % 3.4 L Monocytes % (Manual) 3 L Eosinophils % 0.1 D Eosinophils % (Manual) 0.0 Basophils % 0.1 Basophils % (Manual) 0.0 Myelocytes % (Man) 4 H Promyelocytes % (Man) 0 Blast Cells % (Manual) 0 Nucleated RBC % 0 Metamyelocytes 0 D Hypochromia 0 Platelet Estimate Normal Platelet Comment Present Polychromasia 0 Poikilocytosis 1+ Anisocytosis 1+ Microcytosis 1+ Macrocytosis 0 Spherocytes 1+ Tear Drop Cells 1+ Stomatocytes 1+ Sodium 140 Potassium 5.2 H Chloride 107 Carbon Dioxide 26 Anion Gap 7 L BUN 79.4 H Creatinine 2.1 H Est GFR (CKD-EPI)AfAm 32.52 Est GFR (CKD-EPI)NonAf 28.06 Random Glucose 126 H Calcium 9.4 Magnesium 2.5 H Total Bilirubin 1.0 AST 26 ALT 46 Alkaline Phosphatase 78 Total Protein 5.8 L Albumin 2.6 L Hep A IgM Ab Confirm Negative Hepatitis A Ab Total Negative Hep Bs Antigen Negative Hep Bs Antibody Non reactive Hep B Core Total Ab Negative Hep B Core IgM Ab Negative Hepatitis Be Antibody Negative Hepatitis Be Antigen Negative Active Medications Generic Name Dose Route Start Last Admin Trade Name Freq PRN Reason Stop Dose Admin Acetaminophen 650 mg 03/20/19 17:42 03/20/19 17:51 Tylenol - PO 650 mg Q6H PRN Administration PAIN LEVEL 6-10 Albuterol/Ipratropium 1 amp 03/20/19 07:05 Duoneb - NEB Q4H PRN SHORTNESS OF BREATH Albuterol/Ipratropium 1 amp 03/20/19 08:00 03/22/19 11:30 Duoneb - NEB 1 amp RQID MANUEL Administration Aspirin 81 mg 03/20/19 10:00 03/22/19 09:12 Ecotrin - PO 81 mg DAILY [facility] Administration Docusate Sodium 100 mg 03/20/19 14:00 03/22/19 13:40 Colace - PO 100 mg TID MANUEL Administration Finasteride 5 mg 03/20/19 10:00 03/22/19 09:11 Proscar - PO 5 mg DAILY [facility] Administration Furosemide 40 mg 03/22/19 10:00 03/22/19 13:39 Lasix - PO 40 mg DAILY [facility] Administration Heparin Sodium (Porcine) 5,000 unit 03/22/19 10:00 03/22/19 13:39 Heparin - SQ 5,000 unit BID MANUEL Administration Piperacillin Sod/Tazobactam 50 mls @ 100 mls/hr 03/21/19 08:13 03/22/19 09:01 Sod 2.25 gm/ Dextrose IVPB 100 mls/hr Q6H-IV [facility]UEL Administration Protocol Melatonin 5 mg 03/20/19 22:00 03/21/19 21:52 Melatonin PO 5 mg HS PRN Administration INSOMNIA Methyl Salicylate 1 applic 03/20/19 17:45 03/22/19 09:11 Gary-Ruano - TP 1 applic DAILY [facility] Administration Metoprolol Succinate 25 mg 03/20/19 10:00 03/22/19 09:12 Toprol Xl - PO 25 mg DAILY [facility] Administration Multivitamins/Minerals 1 each 03/20/19 10:00 03/22/19 09:11 Theragran-M PO 1 each DAILY [facility] Administration Uksut-4-Exxy Ethyl Esters 1 gm 03/20/19 10:15 03/22/19 09:12 Lovaza - PO 1 gm DAILY [facility] Administration Prednisone 30 mg 03/22/19 11:45 03/22/19 13:39 Deltasone - PO Not Given DAILY MANUEL Senna 2 tab 03/20/19 22:00 03/20/19 21:28 Senna - PO 2 tab HS PRN Administration CONSTIPATION Tamsulosin HCl 0.8 mg 03/20/19 08:30 03/22/19 09:12 Flomax - PO 0.8 mg DAILY@0830 MANUEL Administration ASSESSMENT/PLAN: Problem List - Problems (1) Pneumonia Assessment/Plan: per chest ct: bilateral lower lobe and right upper and mid lobe pneumonia. airway support with high flow oxygen to maintain sats above 92%, titrated off high flow today and now on 4 liters of nasal cannula. on zosyn per ID wean off oxygen as tolerates Code(s): J18.9 - PNEUMONIA, UNSPECIFIED ORGANISM Qualifiers: Pneumonia type: due to unspecified organism Laterality: right Lung location: unspecified part of lung Qualified Code(s): J18.9 - Pneumonia, unspecified organism (2) Acute respiratory failure Assessment/Plan: now on 4 liters nasal cannula. awake and alert with mild conversational dyspnea pulmonary following, notes reviewed and appreciated. abg reviewed Code(s): J96.00 - ACUTE RESPIRATORY FAILURE, UNSP W HYPOXIA OR HYPERCAPNIA (3) Shortness of breath Assessment/Plan: improving. bilateral pneumonia on ct imaging. continuous pulse ox monitoring Code(s): R06.02 - SHORTNESS OF BREATH (4) VARSHA (acute kidney injury) Assessment/Plan: improving, renal following Code(s): N17.9 - ACUTE KIDNEY FAILURE, UNSPECIFIED (5) BPH (benign prostatic hyperplasia) Assessment/Plan: issa removed on proscar and flomax 0.8 some hematuria yesterday, now resolving ua/uc ordered to further evaluate. Code(s): N40.0 - BENIGN PROSTATIC HYPERPLASIA WITHOUT LOWER URINRY TRACT SYMP (6) Elevated serum creatinine Assessment/Plan: renal following Code(s): R79.89 - OTHER SPECIFIED ABNORMAL FINDINGS OF BLOOD CHEMISTRY (7) Elevated troponin Assessment/Plan: no chest pain, cardiology following Code(s): R79.89 - OTHER SPECIFIED ABNORMAL FINDINGS OF BLOOD CHEMISTRY (8) HTN (hypertension) Code(s): I10 - ESSENTIAL (PRIMARY) HYPERTENSION (9) Hypoxia Code(s): R09.02 - HYPOXEMIA (10) Status post biventricular pacemaker Assessment/Plan: placed in 2019, well healed surgical scar placed for high grade av block Code(s): Z95.0 - PRESENCE OF CARDIAC PACEMAKER (11) Acute on chronic diastolic (congestive) heart failure Assessment/Plan: monitor intake and output with daily weights on lasix 40mg daily Code(s): I50.33 - ACUTE ON CHRONIC DIASTOLIC (CONGESTIVE) HEART FAILURE (12) Requires aspiration precautions Assessment/Plan: maintain aspiration precautions until respiratory status improves Code(s): Z91.89 - OTH PERSONAL RISK FACTORS, NOT ELSEWHERE CLASSIFIED (13) DVT prophylaxis Assessment/Plan: heparin bid discontinued after episode of hematuria Code(s): Z29.9 - ENCOUNTER FOR PROPHYLACTIC MEASURES, UNSPECIFIED (14) Prophylactic measure Assessment/Plan: fen low salt diet monitor electrolytes daily add supplements aspiration precautions full code Code(s): Z29.9 - ENCOUNTER FOR PROPHYLACTIC MEASURES, UNSPECIFIED Visit type - Emergency Visit Emergency Visit: Yes ED Registration Date: 03/15/19 Care time: The patient presented to the Emergency Department on the above date and was hospitalized for further evaluation of their emergent condition. - New Patient This patient is new to me today: No - Critical Care Critical Care patient: No - Discharge Referral Referred to [facility] No
[2019-03-22 18:47] LABS: URINE APPEARANCE Clear; URINE BILIRUBIN Negative (NEGATIVE); URINE COLOR Yellow; URINE GLUCOSE (UA) Negative (NEGATIVE); URINE KETONE Negative (NEGATIVE); URINE LEUK ESTERASE Negative (NEGATIVE); URINE NITRITE Negative (NEGATIVE); URINE PROTEIN Negative (NEGATIVE); URINE UROBILINOGEN 0.2 mg/dL (0.2-1.0)
[2019-03-22 18:49] LABS: EPI CELLS 0.4 /HPF (0-5/HPF); HYALINE CASTS 3.71 /lpf (0-8); URINE BACTERIA 0.2 /hpf (NEGATIVE); URINE RBC 34.8 /hpf (0-4); URINE WBC 0.9 /hpf (0-5)
[2019-03-22] MEDS: MELATONIN 5 MG TABLETS PO PRN (21:10)
[2019-03-23] MEDS ORDERED: DEXTROSE 5%-WATER - 50 ML IVPB ONE ×4 (03:40→21:34)
[2019-03-23] MEDS ORDERED: PIPERACILLIN/TAZOBACTAM 2.25 GM VIAL IVPB ONE ×4 (03:40→21:34)
[2019-03-23] MEDS: PIPERACILLIN/TAZOB 2.25 GM 2.25 GM in DEXTROSE 5%-WATER - 50 ML IVPB SCH ×4 (04:10→21:53)
[2019-03-23] MEDS: DOCUSATE SODIUM 100 MG CAPSULE (FP) PO SCH ×3 (05:10→21:53)
[2019-03-23 07:13] LABS: BASO % 0.1 % (0-2.0); EOS % 0.2 % (0-4.5); HEMATOCRIT 42.7 % (35.4-49); HEMOGLOBIN 14.1 GM/dL (11.7-16.9); LYMPH % 9.1 % (8-40); MCH 29.3 pg (25.7-33.7); MEAN CELL VOLUME 88.7 fl (80-96); MEAN PLT VOLUME 7.9 fl (7.5-11.1); MONO % 5.9 % (3.8-10.2); NEUT % 84.7 % (42.8-82.8); PLATELET COUNT 475 K/MM3 (134-434); RBC 4.81 M/mm3 (4.00-5.60); RDW 16.1 % (11.9-15.9); WHITE BLOOD COUNT 18.5 K/mm3 (4.0-10.0)
[2019-03-23] MEDS: ALBUTEROL SO4 2.5/IPRATROPIUM 0.5 INH SOL 3 ML VIAL.NEB. NEB SCH ×4 (07:20→20:35)
--- NOTE | 2019-03-23 07:29 | PN ---
Progress Note, Physician Chief Complaint: Examined sitting in chair. Mild dyspnea during conversation. States he feels like his breathing is improving. 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 Initially was being treated at [facility] for shortness of breath, cough and wheezing and transferred to [facility] on 03/17/2019 for acute respiratory failure requiring high flow oxygen. He is found to have bilateral pneumonia, predominant on right lung and is on IV zosyn. - Current Medication List Current Medications: Active Medications Acetaminophen (Tylenol -) 650 mg PO Q6H PRN PRN Reason: PAIN LEVEL 6-10 Last Admin: 03/20/19 17:51 Dose: 650 mg Albuterol/Ipratropium (Duoneb -) 1 amp NEB Q4H PRN PRN Reason: SHORTNESS OF BREATH Albuterol/Ipratropium (Duoneb -) 1 amp NEB RQID [facility] Last Admin: 03/22/19 20:37 Dose: 1 amp Aspirin (Ecotrin -) 81 mg PO DAILY [facility] Last Admin: 03/22/19 09:12 Dose: 81 mg Docusate Sodium (Colace -) 100 mg PO TID [facility] Last Admin: 03/23/19 05:10 Dose: 100 mg Finasteride (Proscar -) 5 mg PO DAILY [facility] Last Admin: 03/22/19 09:11 Dose: 5 mg Furosemide (Lasix -) 40 mg PO DAILY [facility] Last Admin: 03/22/19 13:39 Dose: 40 mg Heparin Sodium (Porcine) (Heparin -) 5,000 unit SQ BID [facility] Last Admin: 03/22/19 21:10 Dose: 5,000 unit Piperacillin Sod/Tazobactam (Sod 2.25 gm/ Dextrose) 50 mls @ 100 mls/hr IVPB Q6H-IV [facility]; Protocol Last Admin: 03/23/19 04:10 Dose: 100 mls/hr Melatonin (Melatonin) 5 mg PO HS PRN PRN Reason: INSOMNIA Last Admin: 03/22/19 21:10 Dose: 5 mg Methyl Salicylate (Gary-Ruano -) 1 applic TP DAILY [facility] Last Admin: 03/22/19 09:11 Dose: 1 applic Metoprolol Succinate (Toprol Xl -) 25 mg PO DAILY [facility] Last Admin: 03/22/19 09:12 Dose: 25 mg Multivitamins/Minerals (Theragran-M) 1 each PO DAILY [facility] Last Admin: 03/22/19 09:11 Dose: 1 each Psvjp-4-Pzow Ethyl Esters (Lovaza -) 1 gm PO DAILY [facility] Last Admin: 03/22/19 09:12 Dose: 1 gm Prednisone (Deltasone -) 30 mg PO DAILY [facility] Last Admin: 03/22/19 13:39 Dose: Not Given Senna (Senna -) 2 tab PO HS PRN PRN Reason: CONSTIPATION Last Admin: 03/20/19 21:28 Dose: 2 tab Tamsulosin HCl (Flomax -) 0.8 mg PO DAILY@0830 [facility] Last Admin: 03/22/19 09:12 Dose: 0.8 mg - Objective Vital Signs: Vital Signs Temperature 98.0 F 03/23/19 06:00 Pulse Rate 75 03/23/19 06:00 Respiratory Rate 20 03/23/19 06:00 Blood Pressure 118/74 03/23/19 06:00 O2 Sat by Pulse Oximetry (%) 93 L 03/22/19 21:00 Constitutional: Yes: Well Nourished, No Distress, Calm Eyes: Yes: WNL, Conjunctiva Clear HENT: Yes: WNL, Atraumatic, Normocephalic Neck: Yes: WNL, Supple, Trachea Midline Cardiovascular: Yes: WNL, Regular Rate and Rhythm Respiratory: Yes: Diminished (BL at bases), On Nasal O2 (4L), Rales (R>L) Gastrointestinal: Yes: WNL, Normal Bowel Sounds ...Rectal Exam: Yes: Deferred Genitourinary: Yes: WNL Breast(s): Yes: WNL Musculoskeletal: Yes: WNL Extremities: Yes: WNL Edema: Yes Edema: LLE: 2+, RLE: 2+ Peripheral Pulses WNL: Yes Peripheral Pulses: Left Radial: 2+, Right Radial: 2+, Left Doralis Pedis: 2+, Right Dorsalis Pedis: 2+, Left Femoral: 2+, Right Femoral: 2+ Integumentary: Yes: WNL Neurological: Yes: WNL, Alert, Oriented ...Motor Strength: WNL Psychiatric: Yes: WNL - ....Imaging Cat Scan: Report Reviewed (chest ct 03/17/2019 (non contrast): 1. bilateral lower lobe, right upper and middle lobe air space disease with consolidation consistent with pneumonia (2) no pneumothorax or pleural effusion (3) borderline over distention of the gallbladder with a small stone without wall thickening.) Problem List - Problems (1) VARSHA (acute kidney injury) Assessment/Plan: Cr at baseline, 2.0 now renal following avoid nephrotoxic agents no additional IVF needed Code(s): N17.9 - ACUTE KIDNEY FAILURE, UNSPECIFIED (2) Acute on chronic diastolic (congestive) heart failure Assessment/Plan: LE with 2+ edema c/w lasix, no additional IVF daily weights monitor I/Os Code(s): I50.33 - ACUTE ON CHRONIC DIASTOLIC (CONGESTIVE) HEART FAILURE (3) Acute respiratory failure Assessment/Plan: improving on steroids and abx weaned of HFNC, now on 4L NC mainatin SPO2 >88% c/w pulse oximetry arrangements made for home O2 Code(s): J96.00 - ACUTE RESPIRATORY FAILURE, UNSP W HYPOXIA OR HYPERCAPNIA (4) BPH (benign prostatic hyperplasia) Assessment/Plan: voiding freely after issa removed c/w proscar and flomax 0.8 no further hematuria ua negative /uc pending Code(s): N40.0 - BENIGN PROSTATIC HYPERPLASIA WITHOUT LOWER URINRY TRACT SYMP (5) Hypoxia Assessment/Plan: mainatin on supplemental O2 Code(s): R09.02 - HYPOXEMIA (6) Pneumonia Assessment/Plan: ID/Pulm following afebrile, wbc trending down 18.5 now c/w zosyn encourage OOB/ambulation with O2 encourage IS Code(s): J18.9 - PNEUMONIA, UNSPECIFIED ORGANISM Qualifiers: Pneumonia type: due to unspecified organism Laterality: right Lung location: unspecified part of lung Qualified Code(s): J18.9 - Pneumonia, unspecified organism (7) Prophylactic measure Assessment/Plan: FEN Fluids: no IVF, on lasixx Electrolytes: replete as indicated Nutrition: low salt diet DVT prophylaxis: SCDs, oob, ambulation Dispo: continues to require inpatient care, can dc tele Full code discharge planning Code(s): Z29.9 - ENCOUNTER FOR PROPHYLACTIC MEASURES, UNSPECIFIED (8) Status post biventricular pacemaker Assessment/Plan: placed in 2019 1st degree AV block on EKG Code(s): Z95.0 - PRESENCE OF CARDIAC PACEMAKER Visit type - Emergency Visit Emergency Visit: Yes ED Registration Date: 03/15/19 Care time: The patient presented to the Emergency Department on the above date and was hospitalized for further evaluation of their emergent condition. - New Patient This patient is new to me today: Yes Date on this admission: 03/23/19 - Critical Care Critical Care patient: No - Discharge Referral Referred to [facility] Med [facility].C[facility] No
[2019-03-23 08:07] LABS: BLOOD UREA NITROGEN 73.5 mg/dL (7-18); POTASSIUM 4.5 mmol/L (3.5-5.1)
[2019-03-23 08:08] LABS: ALBUMIN 2.5 g/dl (3.4-5.0); BILIRUBIN,TOTAL 0.9 mg/dL (0.2-1); CALCIUM 9.2 mg/dL (8.5-10.1); MAGNESIUM 2.3 mg/dL (1.8-2.4); TOT PROT 5.4 g/dl (6.4-8.2)
[2019-03-23] MEDS: TAMSULOSIN HCL 0.4 MG CAP PO SCH (08:10)
[2019-03-23] MEDS: HEPARIN NA (PORCINE) 5,000 UNITS/ML 1ML VIAL SQ SCH ×2 (09:44→21:53)
[2019-03-23] MEDS: MULTIVITAMINS THER W-MINERALS COMBO TABLET (FP) PO SCH (09:47)
[2019-03-23] MEDS: predniSONE 10 MG TABLET (UD) PO SCH (09:47)
[2019-03-23] MEDS: FUROSEMIDE 40 MG TABLET (FP) PO SCH (09:47)
[2019-03-23] MEDS: metoPROLOL SUCCINATE 25 MG TAB.SR.24H (FP) PO SCH (09:47)
[2019-03-23] MEDS: FINASTERIDE 5 MG TABLET (FP) PO SCH (09:47)
[2019-03-23] MEDS: ASPIRIN COATED 81 MG TABLET.EC PO SCH (09:48)
[2019-03-23] MEDS: OMEGA-3 ACID ETHYL ESTERS (FATTY-ACIDS) 1 GM CAPSULE (FP) PO SCH (09:48)
--- NOTE | 2019-03-23 09:57 | PN ---
Progress Note, Physician Chief Complaint: sob History of Present Illness: breathing still short, jaylan with ambulation in halls--though overall improved. coughing. no cp/tightness/pressure no palp - Current Medication List Current Medications: Active Medications Acetaminophen (Tylenol -) 650 mg PO Q6H PRN PRN Reason: PAIN LEVEL 6-10 Last Admin: 03/20/19 17:51 Dose: 650 mg Albuterol/Ipratropium (Duoneb -) 1 amp NEB Q4H PRN PRN Reason: SHORTNESS OF BREATH Albuterol/Ipratropium (Duoneb -) 1 amp NEB RQID [facility] Last Admin: 03/23/19 07:20 Dose: 1 amp Aspirin (Ecotrin -) 81 mg PO DAILY [facility] Last Admin: 03/23/19 09:48 Dose: 81 mg Docusate Sodium (Colace -) 100 mg PO TID [facility] Last Admin: 03/23/19 05:10 Dose: 100 mg Finasteride (Proscar -) 5 mg PO DAILY [facility] Last Admin: 03/23/19 09:47 Dose: 5 mg Furosemide (Lasix -) 40 mg PO DAILY [facility] Last Admin: 03/23/19 09:47 Dose: 40 mg Heparin Sodium (Porcine) (Heparin -) 5,000 unit SQ BID [facility] Last Admin: 03/23/19 09:44 Dose: 5,000 unit Piperacillin Sod/Tazobactam (Sod 2.25 gm/ Dextrose) 50 mls @ 100 mls/hr IVPB Q6H-IV [facility]; Protocol Last Admin: 03/23/19 09:48 Dose: 100 mls/hr Melatonin (Melatonin) 5 mg PO HS PRN PRN Reason: INSOMNIA Last Admin: 03/22/19 21:10 Dose: 5 mg Methyl Salicylate (Gary-Ruano -) 1 applic TP DAILY [facility] Last Admin: 03/22/19 09:11 Dose: 1 applic Metoprolol Succinate (Toprol Xl -) 25 mg PO DAILY [facility] Last Admin: 03/23/19 09:47 Dose: 25 mg Multivitamins/Minerals (Theragran-M) 1 each PO DAILY [facility] Last Admin: 03/23/19 09:47 Dose: 1 each Iacgu-9-Mrmd Ethyl Esters (Lovaza -) 1 gm PO DAILY [facility] Last Admin: 03/23/19 09:48 Dose: 1 gm Prednisone (Deltasone -) 30 mg PO DAILY [facility] Last Admin: 03/23/19 09:47 Dose: 30 mg Senna (Senna -) 2 tab PO HS PRN PRN Reason: CONSTIPATION Last Admin: 03/20/19 21:28 Dose: 2 tab Tamsulosin HCl (Flomax -) 0.8 mg PO DAILY@0830 [facility] Last Admin: 03/23/19 08:10 Dose: 0.8 mg - Objective Vital Signs: Vital Signs Temperature 98.0 F 03/23/19 08:20 Pulse Rate 79 03/23/19 08:20 Respiratory Rate 18 03/23/19 08:23 Blood Pressure 127/80 03/23/19 08:20 O2 Sat by Pulse Oximetry (%) 93 L 03/23/19 08:23 Constitutional: Yes: No Distress, Calm, Obese Cardiovascular: Yes: Regular Rate and Rhythm (decr intensity diffusely (habitus , copd)), S1, S2. No: Gallop, Murmur Respiratory: Yes: Regular, Rales (R base). No: Accessory Muscle Use, Wheezes Extremities: No: Cold Edema: Yes (1+ ankles) Neurological: Yes: Alert, Oriented Psychiatric: No: Agitated Labs: CBC, BMP 03/23/19 06:30 03/23/19 06:30 Assessment/Plan tele: NSR, NSVT to 7 beats. PVCs, intermittent V-pacing Echo: Other (Normal EF, mild to moderately dilated RV/ Mild to moderately reduced RVEF, no RVSP described (tech measurement peak TR gradient 33) Ejection Fraction %: LVEF > or = 40 % Assessment/Plan IMP: Acute hypoxemic respiratory failure RML/RLL PNA Acute on chronic diastolic CHF, mild exacerbation Acute on chronic renal failure VPCS/ NSVT History of PPM (01/2010, [employer] for suspected high grade AV block) RV dysfunction (acute vs chronic?)--r/o pulm HTN (no suspicion for PE here, in setting of alternate etiology of sx's) Renal insufficiency (acute on chronic?) REC: -Chest CT c/w PNA. Supp O2/ abx as per PMD and ID -F/u cultures/ abx and steroids as per primary medical and critical care team. -no baseline renal fxn data available, peaked here at 3.4, currently stable 2.0- -cont monitoring with lasix -Lasix 40 po qdaily started (03/22) for mild LE edema--renal fxn stable. pt at risk for R heart failure, remains swollen--cont diuretics same -NSVT: low risk for malignant arrhythmia in light of preserved LVEF--d/c tele. Keep K+ at 4, Mg2+ 2. continue Metoprolol. no angina, no signs of acute ischemia here--routine ischemia monitoring with outside cardio, as indicated -RV dysfx likely due to acute hypoxia secondary to PNA; repeat echo as outpatient once recovered to see if RV fx improves--further w/u for possible underlying pulm HTN tbd at that time -d/c tele
[2019-03-23] MEDS: METHYL SALICYLATE/MENTHOL OINT 30 GM TUBE TP SCH (10:15)
[2019-03-23 11:25] LABS: ANISOCYTOSIS 1+; MACROCYTOSIS 0; OVALOCYTE 1+; PLATELET ESTIMATE NORMAL; TEAR DROP CELLS 1+
--- NOTE | 2019-03-23 12:26 | PN ---
Progress Note, Physician History of Present Illness: Pt seen and examined at bedside. He is awake and alert. He denies shortness of breath. - Current Medication List Current Medications: Active Medications Acetaminophen (Tylenol -) 650 mg PO Q6H PRN PRN Reason: PAIN LEVEL 6-10 Last Admin: 03/20/19 17:51 Dose: 650 mg Albuterol/Ipratropium (Duoneb -) 1 amp NEB Q4H PRN PRN Reason: SHORTNESS OF BREATH Albuterol/Ipratropium (Duoneb -) 1 amp NEB RQID [facility] Last Admin: 03/23/19 11:40 Dose: 1 amp Aspirin (Ecotrin -) 81 mg PO DAILY [facility] Last Admin: 03/23/19 09:48 Dose: 81 mg Docusate Sodium (Colace -) 100 mg PO TID [facility] Last Admin: 03/23/19 05:10 Dose: 100 mg Finasteride (Proscar -) 5 mg PO DAILY [facility] Last Admin: 03/23/19 09:47 Dose: 5 mg Furosemide (Lasix -) 40 mg PO DAILY [facility] Last Admin: 03/23/19 09:47 Dose: 40 mg Heparin Sodium (Porcine) (Heparin -) 5,000 unit SQ BID [facility] Last Admin: 03/23/19 09:44 Dose: 5,000 unit Piperacillin Sod/Tazobactam (Sod 2.25 gm/ Dextrose) 50 mls @ 100 mls/hr IVPB Q6H-IV [facility]; Protocol Last Admin: 03/23/19 09:48 Dose: 100 mls/hr Melatonin (Melatonin) 5 mg PO HS PRN PRN Reason: INSOMNIA Last Admin: 03/22/19 21:10 Dose: 5 mg Methyl Salicylate (Gary-Ruano -) 1 applic TP DAILY [facility] Last Admin: 03/23/19 10:15 Dose: 1 applic Metoprolol Succinate (Toprol Xl -) 25 mg PO DAILY [facility] Last Admin: 03/23/19 09:47 Dose: 25 mg Multivitamins/Minerals (Theragran-M) 1 each PO DAILY [facility] Last Admin: 03/23/19 09:47 Dose: 1 each Ytzaz-2-Zxri Ethyl Esters (Lovaza -) 1 gm PO DAILY [facility] Last Admin: 03/23/19 09:48 Dose: 1 gm Prednisone (Deltasone -) 30 mg PO DAILY [facility] Last Admin: 03/23/19 09:47 Dose: 30 mg Senna (Senna -) 2 tab PO HS PRN PRN Reason: CONSTIPATION Last Admin: 03/20/19 21:28 Dose: 2 tab Tamsulosin HCl (Flomax -) 0.8 mg PO DAILY@0830 [facility] Last Admin: 03/23/19 08:10 Dose: 0.8 mg - Objective Vital Signs: Vital Signs Temperature 98.0 F 03/23/19 08:20 Pulse Rate 91 H 03/23/19 10:25 Respiratory Rate 18 03/23/19 08:23 Blood Pressure 127/80 03/23/19 08:20 O2 Sat by Pulse Oximetry (%) 95 03/23/19 10:25 Constitutional: Yes: Calm Eyes: Yes: Conjunctiva Clear HENT: Yes: Atraumatic, Tonsillar Exudate Cardiovascular: Yes: S1, S2 Respiratory: Yes: On Nasal O2, Wheezes Gastrointestinal: Yes: Normal Bowel Sounds, Soft Genitourinary: Yes: WNL Musculoskeletal: Yes: WNL Edema: Yes Edema: LLE: 1+, RLE: 1+ Neurological: Yes: Oriented Psychiatric: Yes: Oriented Labs: CBC, BMP 03/23/19 06:30 03/23/19 06:30 Problem List - Problems (1) VARSHA (acute kidney injury) Code(s): N17.9 - ACUTE KIDNEY FAILURE, UNSPECIFIED (2) BPH (benign prostatic hyperplasia) Code(s): N40.0 - BENIGN PROSTATIC HYPERPLASIA WITHOUT LOWER URINRY TRACT SYMP (3) Elevated serum creatinine Code(s): R79.89 - OTHER SPECIFIED ABNORMAL FINDINGS OF BLOOD CHEMISTRY Assessment/Plan Current Medications Generic Name Dose Route Start Last Admin Trade Name Freq PRN Reason Stop Dose Admin Acetaminophen 650 mg 03/20/19 17:42 03/20/19 17:51 Tylenol - PO 650 mg Q6H PRN Administration PAIN LEVEL 6-10 Albuterol/Ipratropium 1 amp 03/20/19 07:05 Duoneb - NEB Q4H PRN SHORTNESS OF BREATH Albuterol/Ipratropium 1 amp 03/20/19 08:00 03/23/19 11:40 Duoneb - NEB 1 amp RQID [facility] Administration Aspirin 81 mg 03/20/19 10:00 01/27/20 09:48 Ecotrin - PO 81 mg DAILY [facility] Administration Docusate Sodium 100 mg 03/20/19 14:00 03/23/19 05:10 Colace - PO 100 mg TID [facility] Administration Finasteride 5 mg 03/20/19 10:00 03/23/19 09:47 Proscar - PO 5 mg DAILY [facility] Administration Furosemide 40 mg 03/22/19 10:00 03/23/19 09:47 Lasix - PO 40 mg DAILY [facility] Administration Heparin Sodium (Porcine) 5,000 unit 03/22/19 10:00 03/23/19 09:44 Heparin - SQ 5,000 unit BID [facility] Administration Piperacillin Sod/Tazobactam 50 mls @ 100 mls/hr 03/21/19 08:13 03/23/19 09:48 Sod 2.25 gm/ Dextrose IVPB 100 mls/hr Q6H-IV [facility] Administration Protocol Melatonin 5 mg 03/20/19 22:00 03/22/19 21:10 Melatonin PO 5 mg HS PRN Administration INSOMNIA Methyl Salicylate 1 applic 03/20/19 17:45 03/23/19 10:15 Gary-Ruano - TP 1 applic DAILY [facility] Administration Metoprolol Succinate 25 mg 03/20/19 10:00 03/23/19 09:47 Toprol Xl - PO 25 mg DAILY [facility] Administration Multivitamins/Minerals 1 each 03/20/19 10:00 03/23/19 09:47 Theragran-M PO 1 each DAILY [facility] Administration Udcxp-2-Reir Ethyl Esters 1 gm 03/20/19 10:15 03/23/19 09:48 Lovaza - PO 1 gm DAILY [facility] Administration Prednisone 30 mg 03/22/19 11:45 03/23/19 09:47 Deltasone - PO 30 mg DAILY [facility] Administration Senna 2 tab 03/20/19 22:00 03/20/19 21:28 Senna - PO 2 tab HS PRN Administration CONSTIPATION Tamsulosin HCl 0.8 mg 03/20/19 08:30 03/23/19 08:10 Flomax - PO 0.8 mg DAILY@0830 [facility] Administration Laboratory Tests 03/18/19 03/18/19 03/18/19 05:15 05:15 05:15 VINICIUS M-Adriano 0.2 H MICHAEL Screen Negative c-ANCA Pending Proteinase 3 (PR3) Pending p-ANCA Pending Atypical p-ANCA Pending Myeloperoxidase Ab Pending Double Strand DNA Ab 1 Glomerular Base Memb Ab Pending Free [place] LC, Quant 47.2 H Free Lambda LC, Quant 45.3 H Free [place]/Lambda Ratio 1.04 Impression 1. VARSHA 2. PNA 3. hx HTN 4. BPH 5. hx PPM 6. sepsis 7. 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
--- NOTE | 2019-03-23 14:11 | PN ---
Progress Note, Physician History of Present Illness: OOB IN CHAIR AWAKE, RESPONSIVE SL TACHYPNEIC ON NASAL CANNULA O2 LEUKOCYTOSIS PERSISTS LEGIONELLA/ PNEUMOCOCCAL AG (-) SPUTUM C/S NORMAL MAICOL - Current Medication List Current Medications: Active Medications Acetaminophen (Tylenol -) 650 mg PO Q6H PRN PRN Reason: PAIN LEVEL 6-10 Last Admin: 03/20/19 17:51 Dose: 650 mg Albuterol/Ipratropium (Duoneb -) 1 amp NEB Q4H PRN PRN Reason: SHORTNESS OF BREATH Albuterol/Ipratropium (Duoneb -) 1 amp NEB RQID [facility] Last Admin: 03/23/19 11:40 Dose: 1 amp Aspirin (Ecotrin -) 81 mg PO DAILY [facility] Last Admin: 03/23/19 09:48 Dose: 81 mg Docusate Sodium (Colace -) 100 mg PO TID [facility] Last Admin: 03/23/19 13:15 Dose: 100 mg Finasteride (Proscar -) 5 mg PO DAILY [facility] Last Admin: 03/23/19 09:47 Dose: 5 mg Furosemide (Lasix -) 40 mg PO DAILY [facility] Last Admin: 03/23/19 09:47 Dose: 40 mg Heparin Sodium (Porcine) (Heparin -) 5,000 unit SQ BID [facility] Last Admin: 03/23/19 09:44 Dose: 5,000 unit Piperacillin Sod/Tazobactam (Sod 2.25 gm/ Dextrose) 50 mls @ 100 mls/hr IVPB Q6H-IV [facility]; Protocol Last Admin: 03/23/19 09:48 Dose: 100 mls/hr Melatonin (Melatonin) 5 mg PO HS PRN PRN Reason: INSOMNIA Last Admin: 03/22/19 21:10 Dose: 5 mg Methyl Salicylate (Gary-Ruano -) 1 applic TP DAILY [facility] Last Admin: 03/23/19 10:15 Dose: 1 applic Metoprolol Succinate (Toprol Xl -) 25 mg PO DAILY [facility] Last Admin: 03/23/19 09:47 Dose: 25 mg Multivitamins/Minerals (Theragran-M) 1 each PO DAILY [facility] Last Admin: 03/23/19 09:47 Dose: 1 each Pgugi-5-Lxff Ethyl Esters (Lovaza -) 1 gm PO DAILY [facility] Last Admin: 03/23/19 09:48 Dose: 1 gm Prednisone (Deltasone -) 30 mg PO DAILY [facility] Last Admin: 03/23/19 09:47 Dose: 30 mg Senna (Senna -) 2 tab PO HS PRN PRN Reason: CONSTIPATION Last Admin: 03/20/19 21:28 Dose: 2 tab Tamsulosin HCl (Flomax -) 0.8 mg PO DAILY@0830 [facility] Last Admin: 03/23/19 08:10 Dose: 0.8 mg - Objective Vital Signs: Vital Signs Temperature 98.0 F 03/23/19 08:20 Pulse Rate 91 H 03/23/19 10:25 Respiratory Rate 18 03/23/19 08:23 Blood Pressure 127/80 03/23/19 08:20 O2 Sat by Pulse Oximetry (%) 95 03/23/19 10:25 Constitutional: Yes: No Distress, Obese Cardiovascular: Yes: Regular Rate and Rhythm, S1, S2 Respiratory: Yes: Other (RALES R BASE) Gastrointestinal: Yes: Normal Bowel Sounds, Soft, Abdomen, Obese. No: Tenderness Edema: Yes Labs: CBC, BMP 03/23/19 06:30 03/23/19 06:30 Assessment/Plan PNEUMONIA R/O SEPSIS SECONDARY TO PNEUMONIA LEUKOCYTOSIS AZOTEMIA S/P PPM CONTINUE EMPIRIC ZOSYN
--- NOTE | 2019-03-23 14:39 | PN ---
Progress Note (short form) - Note Progress Note: PULMONARY Breathing improving. Less cough. No fevers. Vital Signs Period Temp Pulse Resp BP Sys/Richardson Pulse Ox Last 24 Hr 97.2 F-98.0 F 75-91 10-20 118-131/74-85 93-95 Gen: NAD in chair Heart: RRR Lung: scattered rhonchi Abd: soft, nontender Ext: no edema CBC, BMP 03/23/19 06:30 03/23/19 06:30 Active Medications Acetaminophen (Tylenol -) 650 mg PO Q6H PRN PRN Reason: PAIN LEVEL 6-10 Last Admin: 03/20/19 17:51 Dose: 650 mg Albuterol/Ipratropium (Duoneb -) 1 amp NEB Q4H PRN PRN Reason: SHORTNESS OF BREATH Albuterol/Ipratropium (Duoneb -) 1 amp NEB RQID [facility] Last Admin: 03/23/19 11:40 Dose: 1 amp Aspirin (Ecotrin -) 81 mg PO DAILY [facility] Last Admin: 03/23/19 09:48 Dose: 81 mg Docusate Sodium (Colace -) 100 mg PO TID [facility] Last Admin: 03/23/19 13:15 Dose: 100 mg Finasteride (Proscar -) 5 mg PO DAILY [facility] Last Admin: 03/23/19 09:47 Dose: 5 mg Furosemide (Lasix -) 40 mg PO DAILY [facility] Last Admin: 03/23/19 09:47 Dose: 40 mg Heparin Sodium (Porcine) (Heparin -) 5,000 unit SQ BID [facility] Last Admin: 03/23/19 09:44 Dose: 5,000 unit Piperacillin Sod/Tazobactam (Sod 2.25 gm/ Dextrose) 50 mls @ 100 mls/hr IVPB Q6H-IV [facility]; Protocol Last Admin: 03/23/19 09:48 Dose: 100 mls/hr Melatonin (Melatonin) 5 mg PO HS PRN PRN Reason: INSOMNIA Last Admin: 03/22/19 21:10 Dose: 5 mg Methyl Salicylate (Gary-Ruano -) 1 applic TP DAILY [facility] Last Admin: 03/23/19 10:15 Dose: 1 applic Metoprolol Succinate (Toprol Xl -) 25 mg PO DAILY [facility] Last Admin: 03/23/19 09:47 Dose: 25 mg Multivitamins/Minerals (Theragran-M) 1 each PO DAILY [facility] Last Admin: 03/23/19 09:47 Dose: 1 each Mxqjv-1-Doyc Ethyl Esters (Lovaza -) 1 gm PO DAILY [facility] Last Admin: 03/23/19 09:48 Dose: 1 gm Prednisone (Deltasone -) 30 mg PO DAILY [facility] Last Admin: 03/23/19 09:47 Dose: 30 mg Senna (Senna -) 2 tab PO HS PRN PRN Reason: CONSTIPATION Last Admin: 03/20/19 21:28 Dose: 2 tab Tamsulosin HCl (Flomax -) 0.8 mg PO DAILY@0830 [facility] Last Admin: 03/23/19 08:10 Dose: 0.8 mg A/P Acute Hypoxic Respiratory Failure Pneumonia Acute on Chronic Diastolic Heart Failure Acute on Chronic Renal Failure h/o PPM BPH - continue antibiotics - taper FiO2 to keep Spo2 >90% - prednisone taper - inhaled bronchodilators - monitor urine output, creatinine - DVT prophylaxis
[2019-03-23] MEDS ORDERED: predniSONE 10 MG TABLET (UD) PO SCH (14:46)
[2019-03-23 16:07] LABS: ANTIGLOMERULAR BASEMENT MEN.AB 3 units (0-20)
[2019-03-23 17:06] LABS: ATYPICAL pANCA <1:20 titer (Neg:<1:20); C-ANCA <1:20 titer (Neg:<1:20)
--- NOTE | 2019-03-23 20:08 | PN ---
Progress Note (short form) - Note Progress Note: 83 y.o. 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 Pt says for the pas 2-3 weeks he has had a cough productive of ambrosio sputum. Also endorses increasing dyspnea since Saturday. Patient is having difficulty catching his breath while speaking with me. Currently saturating well on venti mask. Of note, patient's is a sick contact who has had URI symptoms for the past week. PHYSICAL EXAMINATION Last Vital Signs Temp Pulse Resp BP Pulse Ox 97.8 F 83 20 124/77 95 03/23/19 17:00 03/23/19 17:00 03/23/19 17:00 03/23/19 17:00 03/23/19 10:25 Cor: RSR, No murmurs, No gallops Lungs: Clear to P&A Abd: Soft, Normal bowel sounds, No organomegaly Ext:No significant edema Skin: No rashes, Integument intact Abnormal Lab Results 03/23/19 03/23/19 06:30 06:30 WBC 18.5 H RDW 16.1 H Plt Count 475 H Absolute Neuts (auto) 15.7 H Neutrophils % 84.7 H Monocytes % (Manual) 3 L Anion Gap 7 L BUN 73.5 H Creatinine 2.0 H Total Protein 5.4 L Albumin 2.5 L Home Medication List Medication Instructions Recorded Confirmed Type "Generic Antacid" 1 tab PO DAILY 03/15/19 History Aspirin [Aspirin EC] 81 mg PO DAILY 03/15/19 03/15/19 History Cholecalciferol (Vitamin D3) 2,000 unit PO DAILY 03/15/19 03/15/19 History [Vitamin D3] Finasteride 5 mg PO DAILY 03/15/19 03/15/19 History Hydrochlorothiazide [Hctz -] 12.5 mg PO DAILY 03/15/19 03/15/19 History Losartan/Hydrochlorothiazide 1 each PO DAILY 03/15/19 03/15/19 History [Losartan-Hctz 100-25 mg Tab] Metoprolol Succinate [Toprol Xl] 25 mg PO DAILY 03/15/19 03/15/19 History Multivit-Min/FA/Lycopen/Lutein 1 each PO DAILY 03/15/19 03/15/19 History [Centrum Silver Tablet] [place]-3 Fatty Acids/Fish Oil [Fish 1 each PO DAILY 03/15/19 03/15/19 History Oil 1,000 mg Capsule] Tamsulosin HCl [Flomax] 0.8 mg PO DAILY 03/15/19 03/15/19 History Active Medications Generic Name Dose Route Start Last Admin Trade Name Freq PRN Reason Stop Dose Admin Acetaminophen 650 mg 03/20/19 17:42 03/20/19 17:51 Tylenol - PO 650 mg Q6H PRN Administration PAIN LEVEL 6-10 Albuterol/Ipratropium 1 amp 03/20/19 07:05 Duoneb - NEB Q4H PRN SHORTNESS OF BREATH Albuterol/Ipratropium 1 amp 03/20/19 08:00 03/23/19 15:55 Duoneb - NEB 1 amp RQID [facility] Administration Aspirin 81 mg 03/20/19 10:00 03/23/19 09:48 Ecotrin - PO 81 mg DAILY [facility] Administration Docusate Sodium 100 mg 03/20/19 14:00 03/23/19 13:15 Colace - PO 100 mg TID [facility] Administration Finasteride 5 mg 03/20/19 10:00 03/23/19 09:47 Proscar - PO 5 mg DAILY [facility] Administration Furosemide 40 mg 03/22/19 10:00 03/23/19 09:47 Lasix - PO 40 mg DAILY [facility] Administration Heparin Sodium (Porcine) 5,000 unit 03/22/19 10:00 03/23/19 09:44 Heparin - SQ 5,000 unit BID [facility] Administration Piperacillin Sod/Tazobactam 50 mls @ 100 mls/hr 03/21/19 08:13 03/23/19 14:57 Sod 2.25 gm/ Dextrose IVPB 100 mls/hr Q6H-IV [facility] Administration Protocol Melatonin 5 mg 03/20/19 22:00 03/22/19 21:10 Melatonin PO 5 mg HS PRN Administration INSOMNIA Methyl Salicylate 1 applic 03/20/19 17:45 03/23/19 10:15 Gary-Ruano - TP 1 applic DAILY [facility] Administration Metoprolol Succinate 25 mg 03/20/19 10:00 03/23/19 09:47 Toprol Xl - PO 25 mg DAILY [facility] Administration Multivitamins/Minerals 1 each 03/20/19 10:00 03/23/19 09:47 Theragran-M PO 1 each DAILY [facility] Administration Mxogo-3-Uatg Ethyl Esters 1 gm 03/20/19 10:15 03/23/19 09:48 Lovaza - PO 1 gm DAILY [facility] Administration Prednisone 30 mg 03/24/19 10:00 Deltasone - PO 03/25/19 10:01 DAILY [facility] Prednisone 20 mg 03/26/19 10:00 Deltasone - PO 03/28/19 10:01 DAILY [facility] Prednisone 10 mg 03/29/19 10:00 Deltasone - PO 03/31/19 10:01 DAILY [facility] Senna 2 tab 03/20/19 22:00 03/20/19 21:28 Senna - PO 2 tab HS PRN Administration CONSTIPATION Tamsulosin HCl 0.8 mg 03/20/19 08:30 03/23/19 08:10 Flomax - PO 0.8 mg DAILY@0830 [facility] Administration ASSESSMENT/PLAN: 83 y.o. M PMH HTN, heart block s/p pacemaker placement 01/2019, BPH, morbid obesity presenting for sepsis 2/2 pneumonia. 1. VARSHA 2. PNA 3. hx HTN 4. BPH 5. hx PPM 6. sepsis 7. positive m spike M spike --most likely reactive to underlying infections. SFLCA --normal ratio Would repeat protein studies -- SIFE, SFLCA, Quant. immunoglobulins in 3 months
[2019-03-23 21:20] VITALS: BMI 35.6
[2019-03-23] MEDS: MELATONIN 5 MG TABLETS PO PRN (21:53)
[2019-03-24] MEDS ORDERED: PIPERACILLIN/TAZOBACTAM 2.25 GM VIAL IVPB ONE ×3 (03:21→13:33)
[2019-03-24] MEDS ORDERED: DEXTROSE 5%-WATER - 50 ML IVPB ONE ×3 (03:21→13:33)
[2019-03-24] MEDS: PIPERACILLIN/TAZOB 2.25 GM 2.25 GM in DEXTROSE 5%-WATER - 50 ML IVPB SCH ×2 (03:38→09:23)
[2019-03-24] MEDS: DOCUSATE SODIUM 100 MG CAPSULE (FP) PO SCH ×2 (06:45→13:37)
[2019-03-24 07:20] LABS: BASO % 0.3 % (0-2.0); EOS % 0.6 % (0-4.5); HEMATOCRIT 40.8 % (35.4-49); HEMOGLOBIN 13.4 GM/dL (11.7-16.9); LYMPH % 11.2 % (8-40); MCH 29.1 pg (25.7-33.7); MCHC 32.9 g/dl (32.0-35.9); MEAN CELL VOLUME 88.5 fl (80-96); MONO % 6.2 % (3.8-10.2); NEUT % 81.7 % (42.8-82.8); PLATELET COUNT 460 K/MM3 (134-434); RBC 4.61 M/mm3 (4.00-5.60); RDW 15.7 % (11.9-15.9)
[2019-03-24 08:19] LABS: ALBUMIN 2.6 g/dl (3.4-5.0); BILIRUBIN,TOTAL 0.7 mg/dL (0.2-1); BLOOD UREA NITROGEN 62.7 mg/dL (7-18); CREATININE 1.9 mg/dL (0.55-1.3); MAGNESIUM 2.3 mg/dL (1.8-2.4); POTASSIUM 4.4 mmol/L (3.5-5.1); TOT PROT 5.5 g/dl (6.4-8.2)
[2019-03-24] MEDS: ALBUTEROL SO4 2.5/IPRATROPIUM 0.5 INH SOL 3 ML VIAL.NEB. NEB SCH ×3 (08:24→15:29)
[2019-03-24] MEDS: TAMSULOSIN HCL 0.4 MG CAP PO SCH (08:45)
[2019-03-24] MEDS: OMEGA-3 ACID ETHYL ESTERS (FATTY-ACIDS) 1 GM CAPSULE (FP) PO SCH (09:23)
[2019-03-24] MEDS: MULTIVITAMINS THER W-MINERALS COMBO TABLET (FP) PO SCH (09:23)
[2019-03-24] MEDS: HEPARIN NA (PORCINE) 5,000 UNITS/ML 1ML VIAL SQ SCH (09:23)
[2019-03-24] MEDS: FUROSEMIDE 40 MG TABLET (FP) PO SCH (09:23)
[2019-03-24] MEDS: FINASTERIDE 5 MG TABLET (FP) PO SCH (09:24)
[2019-03-24] MEDS: metoPROLOL SUCCINATE 25 MG TAB.SR.24H (FP) PO SCH (09:24)
[2019-03-24] MEDS: ASPIRIN COATED 81 MG TABLET.EC PO SCH (09:24)
[2019-03-24] MEDS: METHYL SALICYLATE/MENTHOL OINT 30 GM TUBE TP SCH (09:24)
[2019-03-24] MEDS ORDERED: predniSONE 10 MG TABLET (UD) PO SCH (10:00)
[2019-03-24 11:23] LABS: ANISOCYTOSIS 0; MACROCYTOSIS 0; PLATELET ESTIMATE NORMAL
--- NOTE | 2019-03-24 12:41 | PN ---
Progress Note (short form) - Note Progress Note: s: no chest pain, palps, dizziness. dyspnea improving Current Medications Acetaminophen (Tylenol -) 650 mg PO Q6H PRN PRN Reason: PAIN LEVEL 6-10 Last Admin: 03/20/19 17:51 Dose: 650 mg Albuterol/Ipratropium (Duoneb -) 1 amp NEB Q4H PRN PRN Reason: SHORTNESS OF BREATH Albuterol/Ipratropium (Duoneb -) 1 amp NEB RQID [facility] Last Admin: 03/24/19 08:24 Dose: 1 amp Aspirin (Ecotrin -) 81 mg PO DAILY [facility] Last Admin: 03/24/19 09:24 Dose: 81 mg Docusate Sodium (Colace -) 100 mg PO TID [facility] Last Admin: 03/24/19 06:45 Dose: 100 mg Finasteride (Proscar -) 5 mg PO DAILY [facility] Last Admin: 03/24/19 09:24 Dose: 5 mg Furosemide (Lasix -) 40 mg PO DAILY [facility] Last Admin: 03/24/19 09:23 Dose: 40 mg Heparin Sodium (Porcine) (Heparin -) 5,000 unit SQ BID [facility] Last Admin: 03/24/19 09:23 Dose: 5,000 unit Piperacillin Sod/Tazobactam (Sod 2.25 gm/ Dextrose) 50 mls @ 100 mls/hr IVPB Q6H-IV [facility]; Protocol Last Admin: 03/24/19 09:23 Dose: 100 mls/hr Melatonin (Melatonin) 5 mg PO HS PRN PRN Reason: INSOMNIA Last Admin: 03/23/19 21:53 Dose: 5 mg Methyl Salicylate (Gary-Ruano -) 1 applic TP DAILY [facility] Last Admin: 03/24/19 09:24 Dose: 1 applic Metoprolol Succinate (Toprol Xl -) 25 mg PO DAILY [facility] Last Admin: 03/24/19 09:24 Dose: 25 mg Multivitamins/Minerals (Theragran-M) 1 each PO DAILY [facility] Last Admin: 03/24/19 09:23 Dose: 1 each Kcnji-4-Friv Ethyl Esters (Lovaza -) 1 gm PO DAILY [facility] Last Admin: 03/24/19 09:23 Dose: 1 gm Prednisone (Deltasone -) 30 mg PO DAILY [facility] Stop: 03/25/19 10:01 Last Admin: 03/24/19 09:23 Dose: 30 mg Prednisone (Deltasone -) 20 mg PO DAILY [facility] Stop: 03/28/19 10:01 Prednisone (Deltasone -) 10 mg PO DAILY [facility] Stop: 03/31/19 10:01 Senna (Senna -) 2 tab PO HS PRN PRN Reason: CONSTIPATION Last Admin: 03/20/19 21:28 Dose: 2 tab Tamsulosin HCl (Flomax -) 0.8 mg PO DAILY@0830 [facility] Last Admin: 03/24/19 08:45 Dose: 0.8 mg Vital Signs Period Temp Pulse Resp BP Sys/Richardson Pulse Ox Last 24 Hr 97.8 F-98.2 F 53-83 17-20 111-134/55-77 95-95 Constitutional: Yes: No Distress, Calm, Obese Cardiovascular: Yes: Regular Rate and Rhythm (decr intensity diffusely (habitus , copd)), S1, S2. No: Gallop, Murmur Respiratory: Yes: Regular, Rales (R base). 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 Supp O2/ abx as per PMD and ID -F/u cultures/ abx and steroids as per primary medical and critical care team. -no baseline renal fxn data available, peaked here at 3.4, currently stable 2.0- -cont monitoring with lasix -Lasix 40 po qdaily started (03/22) for mild LE edema--renal fxn stable. pt at risk for R heart failure, remains swollen--cont diuretics same -NSVT: low risk for malignant arrhythmia in light of preserved LVEF. Keep K+ at 4, Mg2+ 2. continue Metoprolol. no angina, no signs of acute ischemia here-- routine ischemia monitoring with outside cardio, as indicated -RV dysfx likely due to acute hypoxia secondary to PNA; repeat echo as outpatient once recovered to see if RV fx improves--further w/u for possible underlying pulm HTN tbd at that time
--- NOTE | 2019-03-24 12:48 | PN ---
Physical Exam: SUBJECTIVE: Patient seen and examined OBJECTIVE: Vital Signs Period Temp Pulse Resp BP Sys/Richardson Pulse Ox Last 24 Hr 97.8 F-98.2 F 53-83 17-20 111-134/55-77 95-95 GENERAL: The patient is awake, alert, and fully oriented, in no acute distress. HEAD: Normal with no signs of trauma. EYES: PERRL, extraocular movements intact, sclera anicteric, conjunctiva clear. No ptosis. ENT: Ears normal, nares patent, oropharynx clear without exudates, moist mucous membranes. NECK: Trachea midline, full range of motion, supple. LUNGS: Breath sounds equal, clear to auscultation bilaterally, no wheezes, no crackles, no accessory muscle use. HEART: Regular rate and rhythm, S1, S2 without murmur, rub or gallop. ABDOMEN: Soft, nontender, nondistended, normoactive bowel sounds, no guarding, no rebound, no hepatosplenomegaly, no masses. EXTREMITIES: 2+ pulses, warm, well-perfused, no edema. NEUROLOGICAL: Cranial nerves II through XII grossly intact. Normal speech, gait not observed. PSYCH: Normal mood, normal affect. SKIN: Warm, dry, normal turgor, no rashes or lesions noted Laboratory Results - last 24 hr 03/18/19 03/18/19 03/23/19 05:15 05:15 06:30 WBC RBC Hgb Hct MCV MCH MCHC RDW Plt Count MPV Absolute Neuts (auto) Neutrophils % Neutrophils % (Manual) 77.5 Band Neutrophils % 0.0 Lymphocytes % Lymphocytes % (Manual) 8.2 D Monocytes % Monocytes % (Manual) 3 L Eosinophils % Eosinophils % (Manual) 3.0 D Basophils % Basophils % (Manual) 0.0 Myelocytes % (Man) 0 D Promyelocytes % (Man) 0 Blast Cells % (Manual) 0 Nucleated RBC % 0 Metamyelocytes 0 Hypochromia 0 Platelet Estimate Normal Platelet Comment Present Polychromasia 0 Poikilocytosis 1+ Anisocytosis 1+ Microcytosis 1+ Macrocytosis 0 Tear Drop Cells 1+ Ovalocytes 1+ Sodium Potassium Chloride Carbon Dioxide Anion Gap BUN Creatinine Est GFR (CKD-EPI)AfAm Est GFR (CKD-EPI)NonAf Random Glucose Calcium Magnesium Total Bilirubin AST ALT Alkaline Phosphatase Total Protein Albumin c-ANCA <1:20 Proteinase 3 (PR3) <3.5 p-ANCA <1:20 Atypical p-ANCA <1:20 Myeloperoxidase Ab <9.0 Glomerular Base Memb Ab 3 HCV Quantitation Hcv not detected HCV RNA log copies/mL TNP 03/24/19 03/24/19 05:35 05:35 WBC 16.0 H RBC 4.61 Hgb 13.4 Hct 40.8 MCV 88.5 MCH 29.1 MCHC 32.9 RDW 15.7 Plt Count 460 H MPV 8.0 Absolute Neuts (auto) 13.0 H Neutrophils % 81.7 Neutrophils % (Manual) 81.3 Band Neutrophils % 0.0 Lymphocytes % 11.2 D Lymphocytes % (Manual) 5.9 L D Monocytes % 6.2 Monocytes % (Manual) 6 D Eosinophils % 0.6 D Eosinophils % (Manual) 0.0 D Basophils % 0.3 Basophils % (Manual) 0.0 Myelocytes % (Man) 1 D Promyelocytes % (Man) 0 Blast Cells % (Manual) 0 Nucleated RBC % 0 Metamyelocytes 1 D Hypochromia 0 Platelet Estimate Normal Platelet Comment Polychromasia 0 Poikilocytosis 0 Anisocytosis 0 Microcytosis 0 Macrocytosis 0 Tear Drop Cells Ovalocytes Sodium 142 Potassium 4.4 Chloride 105 Carbon Dioxide 28 Anion Gap 9 BUN 62.7 H Creatinine 1.9 H Est GFR (CKD-EPI)AfAm 36.70 Est GFR (CKD-EPI)NonAf 31.67 Random Glucose 91 Calcium 9.0 Magnesium 2.3 Total Bilirubin 0.7 AST 21 ALT 42 Alkaline Phosphatase 73 Total Protein 5.5 L Albumin 2.6 L c-ANCA Proteinase 3 (PR3) p-ANCA Atypical p-ANCA Myeloperoxidase Ab Glomerular Base Memb Ab HCV Quantitation HCV RNA log copies/mL Active Medications Generic Name Dose Route Start Last Admin Trade Name Freq PRN Reason Stop Dose Admin Acetaminophen 650 mg 03/20/19 17:42 03/20/19 17:51 Tylenol - PO 650 mg Q6H PRN Administration PAIN LEVEL 6-10 Albuterol/Ipratropium 1 amp 03/20/19 07:05 Duoneb - NEB Q4H PRN SHORTNESS OF BREATH Albuterol/Ipratropium 1 amp 03/20/19 08:00 03/24/19 12:45 Duoneb - NEB 1 amp RQID [facility]UEL Administration Aspirin 81 mg 03/20/19 10:00 03/24/19 09:24 Ecotrin - PO 81 mg DAILY [facility] Administration Docusate Sodium 100 mg 03/20/19 14:00 03/24/19 06:45 Colace - PO 100 mg TID [facility] Administration Finasteride 5 mg 03/20/19 10:00 03/24/19 09:24 Proscar - PO 5 mg DAILY [facility] Administration Furosemide 40 mg 03/22/19 10:00 03/24/19 09:23 Lasix - PO 40 mg DAILY [facility] Administration Heparin Sodium (Porcine) 5,000 unit 03/22/19 10:00 03/24/19 09:23 Heparin - SQ 5,000 unit BID [facility] Administration Piperacillin Sod/Tazobactam 50 mls @ 100 mls/hr 03/21/19 08:13 03/24/19 09:23 Sod 2.25 gm/ Dextrose IVPB 100 mls/hr Q6H-IV [facility] Administration Protocol Melatonin 5 mg 03/20/19 22:00 03/23/19 21:53 Melatonin PO 5 mg HS PRN Administration INSOMNIA Methyl Salicylate 1 applic 03/20/19 17:45 03/24/19 09:24 Gary-Ruano - TP 1 applic DAILY [facility] Administration Metoprolol Succinate 25 mg 03/20/19 10:00 03/24/19 09:24 Toprol Xl - PO 25 mg DAILY [facility] Administration Multivitamins/Minerals 1 each 03/20/19 10:00 03/24/19 09:23 Theragran-M PO 1 each DAILY [facility] Administration Snogd-1-Zfmy Ethyl Esters 1 gm 03/20/19 10:15 03/24/19 09:23 Lovaza - PO 1 gm DAILY [facility] Administration Prednisone 30 mg 03/24/19 10:00 03/24/19 09:23 Deltasone - PO 03/25/19 10:01 30 mg DAILY [facility] Administration Prednisone 20 mg 03/26/19 10:00 Deltasone - PO 03/28/19 10:01 DAILY [facility] Prednisone 10 mg 03/29/19 10:00 Deltasone - PO 03/31/19 10:01 DAILY [facility] Senna 2 tab 03/20/19 22:00 03/20/19 21:28 Senna - PO 2 tab HS PRN Administration CONSTIPATION Tamsulosin HCl 0.8 mg 03/20/19 08:30 03/24/19 08:45 Flomax - PO 0.8 mg DAILY@0830 [facility] Administration ASSESSMENT/PLAN: Problem List - Problems (1) Pneumonia Code(s): J18.9 - PNEUMONIA, UNSPECIFIED ORGANISM Qualifiers: Pneumonia type: due to unspecified organism Laterality: right Lung location: unspecified part of lung Qualified Code(s): J18.9 - Pneumonia, unspecified organism (2) Acute respiratory failure Code(s): J96.00 - ACUTE RESPIRATORY FAILURE, UNSP W HYPOXIA OR HYPERCAPNIA (3) Shortness of breath Code(s): R06.02 - SHORTNESS OF BREATH (4) VARSHA (acute kidney injury) Code(s): N17.9 - ACUTE KIDNEY FAILURE, UNSPECIFIED (5) BPH (benign prostatic hyperplasia) Code(s): N40.0 - BENIGN PROSTATIC HYPERPLASIA WITHOUT LOWER URINRY TRACT SYMP (6) Elevated serum creatinine Code(s): R79.89 - OTHER SPECIFIED ABNORMAL FINDINGS OF BLOOD CHEMISTRY (7) Elevated troponin Code(s): R79.89 - OTHER SPECIFIED ABNORMAL FINDINGS OF BLOOD CHEMISTRY (8) HTN (hypertension) Code(s): I10 - ESSENTIAL (PRIMARY) HYPERTENSION (9) Hypoxia Code(s): R09.02 - HYPOXEMIA (10) Status post biventricular pacemaker Code(s): Z95.0 - PRESENCE OF CARDIAC PACEMAKER (11) Acute on chronic diastolic (congestive) heart failure Code(s): I50.33 - ACUTE ON CHRONIC DIASTOLIC (CONGESTIVE) HEART FAILURE (12) Requires aspiration precautions Code(s): Z91.89 - OTH PERSONAL RISK FACTORS, NOT ELSEWHERE CLASSIFIED (13) DVT prophylaxis Code(s): Z29.9 - ENCOUNTER FOR PROPHYLACTIC MEASURES, UNSPECIFIED (14) Prophylactic measure Code(s): Z29.9 - ENCOUNTER FOR PROPHYLACTIC MEASURES, UNSPECIFIED
--- NOTE | 2019-03-24 13:08 | PN ---
Progress Note (short form) - Note Progress Note: PULMONARY Breathing continues to improve. Less cough. No fevers. Vital Signs Period Temp Pulse Resp BP Sys/Richardson Pulse Ox Last 24 Hr 97.8 F-98.2 F 53-83 17-20 111-134/55-77 95-95 Gen: NAD in chair Heart: RRR Lung: scattered rhonchi Abd: soft, nontender Ext: no edema CBC, BMP 03/24/19 05:35 03/24/19 05:35 Active Medications Acetaminophen (Tylenol -) 650 mg PO Q6H PRN PRN Reason: PAIN LEVEL 6-10 Last Admin: 03/20/19 17:51 Dose: 650 mg Albuterol/Ipratropium (Duoneb -) 1 amp NEB Q4H PRN PRN Reason: SHORTNESS OF BREATH Albuterol/Ipratropium (Duoneb -) 1 amp NEB RQID [facility] Last Admin: 03/24/19 12:45 Dose: 1 amp Aspirin (Ecotrin -) 81 mg PO DAILY [facility] Last Admin: 03/24/19 09:24 Dose: 81 mg Docusate Sodium (Colace -) 100 mg PO TID [facility] Last Admin: 03/24/19 06:45 Dose: 100 mg Finasteride (Proscar -) 5 mg PO DAILY [facility] Last Admin: 03/24/19 09:24 Dose: 5 mg Furosemide (Lasix -) 40 mg PO DAILY [facility] Last Admin: 03/24/19 09:23 Dose: 40 mg Heparin Sodium (Porcine) (Heparin -) 5,000 unit SQ BID [facility] Last Admin: 03/24/19 09:23 Dose: 5,000 unit Piperacillin Sod/Tazobactam (Sod 2.25 gm/ Dextrose) 50 mls @ 100 mls/hr IVPB Q6H-IV [facility]; Protocol Last Admin: 03/24/19 09:23 Dose: 100 mls/hr Melatonin (Melatonin) 5 mg PO HS PRN PRN Reason: INSOMNIA Last Admin: 03/23/19 21:53 Dose: 5 mg Methyl Salicylate (Gary-Ruano -) 1 applic TP DAILY [facility] Last Admin: 03/24/19 09:24 Dose: 1 applic Metoprolol Succinate (Toprol Xl -) 25 mg PO DAILY [facility] Last Admin: 03/24/19 09:24 Dose: 25 mg Multivitamins/Minerals (Theragran-M) 1 each PO DAILY [facility] Last Admin: 03/24/19 09:23 Dose: 1 each Axumj-7-Vaml Ethyl Esters (Lovaza -) 1 gm PO DAILY [facility] Last Admin: 03/24/19 09:23 Dose: 1 gm Prednisone (Deltasone -) 30 mg PO DAILY [facility] Stop: 03/25/19 10:01 Last Admin: 03/24/19 09:23 Dose: 30 mg Prednisone (Deltasone -) 20 mg PO DAILY [facility] Stop: 03/28/19 10:01 Prednisone (Deltasone -) 10 mg PO DAILY [facility] Stop: 03/31/19 10:01 Senna (Senna -) 2 tab PO HS PRN PRN Reason: CONSTIPATION Last Admin: 03/20/19 21:28 Dose: 2 tab Tamsulosin HCl (Flomax -) 0.8 mg PO DAILY@0830 [facility] Last Admin: 03/24/19 08:45 Dose: 0.8 mg A/P Acute Hypoxic Respiratory Failure Pneumonia Acute on Chronic Diastolic Heart Failure Acute on Chronic Renal Failure h/o PPM BPH - continue antibiotics - taper FiO2 to keep Spo2 >90% - prednisone taper - inhaled bronchodilators - monitor urine output, creatinine - DVT prophylaxis
[2019-03-24 14:22] VITALS: BP 131/61; PULSE 63; TEMP 98.2
--- NOTE | 2019-03-24 15:21 | DS ---
Physical Exam: SUBJECTIVE: Patient seen and examined. tolerating room air. feels better and wants to go home. He will be sent home with home oxygen therapy. 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 Initially was being treated at [facility] for shortness of breath, cough and wheezing and transferred to [facility] on 03/17/2019 for acute respiratory failure requiring high flow oxygen. He is found to have bilateral pneumonia, predominant on right lung and is on IV zosyn. He has completed IV zosyn and will be sent home to complete therapy with Augmentin and a prednisone taper. He has qualified for home oxygen therapy. imaging: chest ct 03/17/2019 (non contrast): 1. bilateral lower lobe, right upper and middle lobe air space disease with consolidation consistent with pneumonia (2) no pneumothorax or pleural effusion (3) borderline over distention of the gallbladder with a small stone without wall thickening. Vital Signs Period Temp Pulse Resp BP Sys/Richardson Pulse Ox Last 24 Hr 97.8 F-98.2 F 53-83 20-20 124-134/61-77 95-95 PHYSICAL EXAM GENERAL: The patient is awake, alert, and fully oriented, in no acute distress. on 2 liters of nasal cannula HEAD: Normal with no signs of trauma. EYES: PERRL, extraocular movements intact, sclera anicteric, conjunctiva clear. No ptosis. ENT: Ears normal, nares patent, oropharynx clear without exudates, dry mucous membranes. NECK: Trachea midline, full range of motion, supple. LUNGS: anterior lungs diminished/clear mostly. right lung with fine crackles on mid lobe, left lung diminished at base. HEART: irregular controlled rate ABDOMEN: Soft, nontender, distended, normoactive bowel sounds, no guarding EXTREMITIES: +2 bilateral lowe ext edema. NEUROLOGICAL:Normal speech, gait not observed. PSYCH: Normal mood, normal affect. SKIN: Warm, dry, normal turgor, no rashes or lesions noted LABS Laboratory Results - last 24 hr 03/18/19 03/24/19 03/24/19 05:15 05:35 05:35 WBC 16.0 H RBC 4.61 Hgb 13.4 Hct 40.8 MCV 88.5 MCH 29.1 MCHC 32.9 RDW 15.7 Plt Count 460 H MPV 8.0 Absolute Neuts (auto) 13.0 H Neutrophils % 81.7 Neutrophils % (Manual) 81.3 Band Neutrophils % 0.0 Lymphocytes % 11.2 D Lymphocytes % (Manual) 5.9 L D Monocytes % 6.2 Monocytes % (Manual) 6 D Eosinophils % 0.6 D Eosinophils % (Manual) 0.0 D Basophils % 0.3 Basophils % (Manual) 0.0 Myelocytes % (Man) 1 D Promyelocytes % (Man) 0 Blast Cells % (Manual) 0 Nucleated RBC % 0 Metamyelocytes 1 D Hypochromia 0 Platelet Estimate Normal Polychromasia 0 Poikilocytosis 0 Anisocytosis 0 Microcytosis 0 Macrocytosis 0 Sodium 142 Potassium 4.4 Chloride 105 Carbon Dioxide 28 Anion Gap 9 BUN 62.7 H Creatinine 1.9 H Est GFR (CKD-EPI)AfAm 36.70 Est GFR (CKD-EPI)NonAf 31.67 Random Glucose 91 Calcium 9.0 Magnesium 2.3 Total Bilirubin 0.7 AST 21 ALT 42 Alkaline Phosphatase 73 Total Protein 5.5 L Albumin 2.6 L c-ANCA <1:20 Proteinase 3 (PR3) <3.5 p-ANCA <1:20 Atypical p-ANCA <1:20 Myeloperoxidase Ab <9.0 Glomerular Base Memb Ab 3 HOSPITAL COURSE: Date of Admission:03/15/19 Date of Discharge: 03/24/19 Minutes to complete discharge: 45 Discharge Summary Problems reviewed: Yes Reason For Visit: ELEVAT.TROPONIN 1 LEVEL/HIGH SERUM CREATININE/PNEU Current Active Problems VARSHA (acute kidney injury) (Acute) Acute on chronic diastolic (congestive) heart failure (Acute) Acute respiratory failure (Acute) BPH (benign prostatic hyperplasia) (Acute) DVT prophylaxis (Acute) Elevated serum creatinine (Acute) Elevated troponin (Acute) HTN (hypertension) (Acute) Hypoxia (Acute) Pneumonia (Acute) Prophylactic measure (Acute) Requires aspiration precautions (Acute) Shortness of breath (Acute) Status post biventricular pacemaker (Acute) Condition: Stable - Instructions Diet, Activity, Other Instructions: Mr. Patel: You were admitted for shortness of breath and found to have a pneumonia of both lungs. We will be sending you home on home oxygen. During your hospital stay you were evaluated by the pulmonary and cardiology team. Here are our discharge recommendations. Bilateral pneumonia: You were found to have a double pneumonia and you will be sent home on oxygen. You were treated with IV antibiotics during your stay. We will be sending you home on Augmentin 875mg TWICE per day for 7 more days. Start taking this medication on 03/25/2019 for 7 days total. Acute Kidney Injury Please follow up with Dr. Lion for repeat testing and monitoring of your kidney function. Do not take any NSAIDs (no motrin, no ibuprophen or advil). If you have pain, take tylenol as needed not to exceed 4000mg per day Congestive heart failure Continue the Lasix 40mg daily Please weigh your self daily and if you increase more than 5 lbs in one day, or become short of breath, please seek immediate medical attention. Here is your new medication List and what the medications are for: 1. Lasix 40mg once per day for heart failure, this medication will help you not retain fluids in your legs or body 2. Proscar 5mg daily for prostate (BPH) 3. Aspirin 81mg ONCE PER DAY - for cardiac health 4. Lovaza 3 acid ethyl Esters - once per day for cholesterol 5. Flomax 0.8mg Once per day - for your prostate 6. Augmentin 875mg TWICE PER DAY - for your bilateral pneumonia 8. Toprol 25mg XL - once per day, this medication is for your hypertension We will also be sending you home on a prednisone TAPER as follows: Prednisone 30mg ONCE PER DAY on 03/25/2019 one dose Prednisone 20mg ONCE PER DAY on 03/26/2019 one dose Prednisone 20mg ONCE PER DAY on 03/27/2019 one dose Prednisone 20mg ONCE PER DAY on 03/28/2019 one dose Prednisone 10mg ONCE PER DAY on 03/29/2019 one dose Prednisone 10mg ONCE PER DAY on 03/30/2019 one dose Prednisone 10mg ONCE PER DAY on 03/31/2019 one dose It is important that you follow up with the cancer program director for further workup. You will need a repeat echocardiogram with your cancer program director. If you do not have a cardiolgist, we have referred you to the one that saw your during your hospital stay. Thank you for allowing us to care for you. [facility] [phone] Referrals: Cl Serrano MD [Primary Care Provider] - Jeramy Ruano MD [Staff Physician] - Milagros Lion MD [Staff Physician] - Daniel Mai MD, MD [Staff Physician] - Disposition: VNS/HOME HEALTH CARE - Home Medications Comprehensive Discharge Medication List: Ambulatory Orders Aspirin [Aspirin EC] 81 mg PO DAILY 03/15/19 Finasteride 5 mg PO DAILY 03/15/19 Metoprolol Succinate [Toprol Xl] 25 mg PO DAILY 03/15/19 Multivit-Min/FA/Lycopen/Lutein [Centrum Silver Tablet] 1 each PO DAILY 03/15/19 Tamsulosin HCl [Flomax] 0.8 mg PO DAILY 03/15/19 Amoxicillin/Potassium Clav [Augmentin 875-125 Tablet] 1 each PO BID #14 tablet 03/24/19 Furosemide [Lasix -] 40 mg PO DAILY #90 tablet 03/24/19 [place]-3 Acid Ethyl Esters [Lovaza -] 1 gm PO DAILY #90 cap 03/24/19 Sennosides [Senna -] 2 tab PO HS PRN tablet 03/24/19 predniSONE [Deltasone -] 10 mg PO DAILY #30 tablet 03/24/19 Problem List - Problems (1) Pneumonia Assessment/Plan: per chest ct: bilateral lower lobe and right upper and mid lobe pneumonia. on 2 liters of nasal cannula. completed Zosyn therapy, can switch to [place] PO x [address] Arnold Qualifies for home oxygen Code(s): J18.9 - PNEUMONIA, UNSPECIFIED ORGANISM Qualifiers: Pneumonia type: due to unspecified organism Laterality: right Lung location: unspecified part of lung Qualified Code(s): J18.9 - Pneumonia, unspecified organism (2) Acute respiratory failure Assessment/Plan: qualified for home oxygen Code(s): J96.00 - ACUTE RESPIRATORY FAILURE, UNSP W HYPOXIA OR HYPERCAPNIA (3) Shortness of breath Assessment/Plan: improved, but will need home oxygen. Code(s): R06.02 - SHORTNESS OF BREATH (4) VARSHA (acute kidney injury) Assessment/Plan: outpatient follow up with Dr. Lion Code(s): N17.9 - ACUTE KIDNEY FAILURE, UNSPECIFIED (5) BPH (benign prostatic hyperplasia) Code(s): N40.0 - BENIGN PROSTATIC HYPERPLASIA WITHOUT LOWER URINRY TRACT SYMP (6) Elevated serum creatinine Code(s): R79.89 - OTHER SPECIFIED ABNORMAL FINDINGS OF BLOOD CHEMISTRY (7) Elevated troponin Code(s): R79.89 - OTHER SPECIFIED ABNORMAL FINDINGS OF BLOOD CHEMISTRY (8) HTN (hypertension) Code(s): I10 - ESSENTIAL (PRIMARY) HYPERTENSION (9) Hypoxia Code(s): R09.02 - HYPOXEMIA (10) Status post biventricular pacemaker Code(s): Z95.0 - PRESENCE OF CARDIAC PACEMAKER (11) Acute on chronic diastolic (congestive) heart failure Code(s): I50.33 - ACUTE ON CHRONIC DIASTOLIC (CONGESTIVE) HEART FAILURE (12) Requires aspiration precautions Code(s): Z91.89 - OTH PERSONAL RISK FACTORS, NOT ELSEWHERE CLASSIFIED (13) DVT prophylaxis Code(s): Z29.9 - ENCOUNTER FOR PROPHYLACTIC MEASURES, UNSPECIFIED (14) Prophylactic measure Code(s): Z29.9 - ENCOUNTER FOR PROPHYLACTIC MEASURES, UNSPECIFIED This patient is new to me today: No Emergency Visit: Yes ED Registration Date: 03/15/19 Care time: The patient presented to the Emergency Department on the above date and was hospitalized for further evaluation of their emergent condition. Critical Care patient: No - Discharge Referral Referred to [facility] No
--- NOTE | 2019-03-24 18:06 | PN ---
Progress Note, Physician History of Present Illness: Pt seen and examined at bedside. He is awake and alert. He feels that his breathing is improved. - Objective Vital Signs: Vital Signs Temperature 98.2 F 03/24/19 14:21 Pulse Rate 63 03/24/19 14:21 Respiratory Rate 03/24/19 14:21 Blood Pressure 131/61 03/24/19 14:21 O2 Sat by Pulse Oximetry (%) 95 03/24/19 08:50 Constitutional: Yes: Calm Eyes: Yes: Conjunctiva Clear HENT: Yes: Atraumatic Cardiovascular: Yes: S1, S2 Respiratory: Yes: CTA Bilaterally Gastrointestinal: Yes: Soft Genitourinary: Yes: WNL Edema: Yes Edema: LLE: Trace, RLE: Trace Neurological: Yes: Oriented Psychiatric: Yes: Oriented Labs: CBC, BMP 03/24/19 05:35 03/24/19 05:35 Problem List - Problems (1) VARSHA (acute kidney injury) Code(s): N17.9 - ACUTE KIDNEY FAILURE, UNSPECIFIED (2) BPH (benign prostatic hyperplasia) Code(s): N40.0 - BENIGN PROSTATIC HYPERPLASIA WITHOUT LOWER URINRY TRACT SYMP (3) Elevated serum creatinine Code(s): R79.89 - OTHER SPECIFIED ABNORMAL FINDINGS OF BLOOD CHEMISTRY Assessment/Plan Impression 1. VARSHA 2. PNA 3. hx HTN 4. BPH 5. hx PPM 6. sepsis 7. positive m spike Plan - renal function is improving - will need outpt follow up - heme follow up - cont lasix
[2019-03-26] MEDS ORDERED: predniSONE 10 MG TABLET (UD) PO SCH (10:00)
[2019-03-29] MEDS ORDERED: predniSONE 10 MG TABLET (UD) PO SCH (10:00)
== END 2019-03-24 17:47 | disposition home health service (06) | DRG 871 ==
LOC: FER 16:09 → FM/S 17:23 → JICU 03-17 18:01 → J4W 03-19 17:11
PROVIDERS: ADMIT Internal Medicine; ATTEND Nurse Practitioner Family
DX: A41.9 Sepsis, unspecified organism (principal); J18.1 Lobar pneumonia, unspecified organism; J96.01 Acute respiratory failure with hypoxia; I50.33 Acute on chronic diastolic (congestive) heart failure; N17.9 Acute kidney failure, unspecified; I45.2 Bifascicular block; I13.0 Hypertensive heart and chronic kidney disease with heart failure and stage 1 through stage 4 chronic kidney disease, or unspecified chronic kidney disease; I47.1 Supraventricular tachycardia; N18.9 Chronic kidney disease, unspecified; N40.0 Benign prostatic hyperplasia without lower urinary tract symptoms; Z95.0 Presence of cardiac pacemaker; Z68.35 Body mass index [BMI] 35.0-35.9, adult; E66.01 Morbid (severe) obesity due to excess calories; D72.829 Elevated white blood cell count, unspecified
CPT/HCPCS: 36415; 36600; 71045-TC-FY; 71250-TC; 76775-TC; 76856-TC; 80048; 80053; 81003; 82436; 82565; 82607; 82803; 83516; 83520; 83605; 83735; 83883; 84100; 84133; 84155; 84156; 84165; 84300; 84443; 84484; 85025; 86038; 86225; 86256; 86593; 86704; 86706; 86707; 86708; 86709; 87040; 87070; 87086; 87205; 87340; 87522; 87633; 87804; 87807; 87899; 93005; 93010; 93306-TC; 93970-TC; 94640; 94660; 94761; 97116-GP; 97161-GP; 99285-25; G0480; J1644; J7030